=== PATIENT | female | born 1990 | race Caucasian/White ===

== ENCOUNTER 2021-02-15 15:56 | Emergency (ER) | payer OTHER, SELFPAY ==
[2021-02-15 16:05] VITALS: BP 134/92; PULSE 84; RESP 16; TEMP 36.8; O2SAT 100
--- NOTE | 2021-02-15 19:13 | ED.HA ---
HPI - Headache General Chief Complaint: Headache Stated Complaint: migraine Time Seen by Provider: 02/15/21 18:54 Source: patient, family and RN notes reviewed Limitations: no limitations History of Present Illness HPI Narrative: 30 years old white female, history of migraine headache, presents with left frontal throbbing headache started 5 days ago, not improving at home medication. Patient had similar symptom in the past and usually gets better when she come to the emergency room. Patient reports some nausea and light sensitivity. Patient denies any fever, chills, vomiting, vision change. Related Data Allergies Allergy/AdvReac Type Severity Reaction Status Date / Time amoxicillin [From Augmentin] Allergy Intermediate Rash Verified 02/15/21 19:35 clavulanic acid Allergy Intermediate Rash Verified 02/15/21 19:35 [From Augmentin] Review of Systems Review of Systems: CONSTITUTIONAL: Denies fever, chills, or sweats. EYES: Denies visual changes, redness, or discharge. ENT: Denies rhinorrhea, congestion, sore throat, or otalgia. CARDIOVASCULAR: Denies chest pain, palpitations, or edema. RESPIRATORY: Denies cough or dyspnea. GASTROINTESTINAL: Denies abdominal pain, nausea, vomiting, or diarrhea. GENITOURINARY: Denies dysuria or hematuria. SKIN: Denies rash or itching. MUSCULOSKELETAL: Denies back pain, joint pain, or myalgia. NEUROLOGIC: Denies headache, numbness, or weakness. PSYCHIATRIC: Denies anxiety or depression. PMFSH Past Medical History Medical History Anxiety Back pain Bronchitis GERD (gastroesophageal reflux disease) GI bleed IBS (irritable bowel syndrome) Migraine Surgical History Surgical History Hx of tonsillectomy Social History Social History Smoking status: Never smoker Exam Narrative: General appearance: Well-developed, well-nourished, in pain Skin: Normal color Head: Normocephalic, nontraumatic Eyes: Clear conjunctiva ENT: Oropharynx normal, ears normal, nose normal Neck: Supple, nontender Chest and respiratory: Airway patent, no respiratory distress, no accessory muscle use Heart: Regular rate/rhythm Abdomen: Soft, nontender, no organomegaly, quiet bowel sounds Vascular: Normal peripheral pulses, normal capillary refill. 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 IV fluids, IV Toradol, IV Reglan and Benadryl ordered. Differential Diagnosis Differential diagnosis: Likely migraine Critical Care Time Critical Care Time Critical Care Time: Yes Total Critical Care Time: 30 Discharge Plan Discharge Clinical Impression: Migraine Qualifiers: Migraine type: unspecified Status migrainosus presence: without status migrainosus Intractability: not intractable Qualified Code(s): G43.909 - Migraine, unspecified, not intractable, without status migrainosus Patient Disposition: Home, Self-Care
[2021-02-15] MEDS: SODIUM CHLORIDE 0.9% IV 1,000 ML 999 ML IV CONT (19:45)
[2021-02-15] MEDS: METOCLOPRAMIDE HCL INJ 10 MG/2 ML VIAL IV PUSH (19:46)
[2021-02-15] MEDS: diphenhydrAMINE HCl INJ 50 MG/ML VIAL IV PUSH (19:46)
[2021-02-15] MEDS: KETOROLAC 30 MG/ML VIAL (*BKC) IV PUSH (19:46)
[2021-02-15] MEDS: LORazepam INJ (*CRX) 2 MG/ML VIAL 1 MG IV PUSH (21:07)
[2021-02-15 22:25] VITALS: BP 115/86; PULSE 86; RESP 16; O2SAT 97
== END 2021-02-15 22:25 | disposition home or self-care (01) ==
PROVIDERS: Emergency Provider Emergency Medicine; PCP Family Medicine
DX: G43.909 Migraine, unspecified, not intractable, without status migrainosus (principal); K21.9 Gastro-esophageal reflux disease without esophagitis; K58.9 Irritable bowel syndrome, unspecified
CPT/HCPCS: 96361; 96374; 96375; 99284; J1200; J1885; J2060; J2765; J7030

== ENCOUNTER → 2021-03-14 15:13 | Outpatient (CLI) | payer OTHER, SELFPAY ==
--- NOTE | ~2021-03-14 | MR_ITS ---
EXAMINATION: MR brain/brain stem wo con DATE: 03/14/2021 15:45 INDICATION: Headache. TECHNIQUE: Magnetic resonance imaging (MRI) of the brain and brainstem was performed without intraven ous contrast. Sequences included sagittal and axial T1-weighted FSE, axial diffusion-weighted FS EPI, axial T2*-weighted GRE, axial T2-weighted FLAIR Propeller, and axial T2-weighted Propeller. Apparent diffusion coefficient (ADC) maps were created. COMPARISON: Head CT 04/26/2019 FINDINGS: There is no intracranial hemorrhage, acute infarction, or abnormal intracranial mass lesion . The ventricles are normal in size. There is mild mucosal thickening in the ethmoid sinuses. The orb its are normal. The mastoid air cells are normal. IMPRESSION: 1. Normal brain. Reviewed, dictated and finalized at location A. IMPRESSION: 1. Normal brain.
== END ==
PROVIDERS: Visit Provider Chiropractor
DX: R51.9 Headache, unspecified (principal)
CPT/HCPCS: 70551

== ENCOUNTER 2022-03-05 08:09 | Outpatient (CLI) | payer BC, SELFPAY ==
--- NOTE | ~2022-03-05 | XR_ITS ---
EXAM: XR hand LT 2V, XR hand RT 2V DATE: 03/05/2022 08:44 HISTORY: Elevated rheumatoid factor . COMPARISON: None available. FINDINGS: Normal mineralization. No fracture or dislocation. No lytic or blastic lesion. Joint space s are maintained. No erosion or periosteal change. Soft tissues within normal limits. IMPRESSION: Normal bilateral hand radiograph findings. Reviewed, dictated and finalized at location K. IMPRESSION: Normal bilateral hand radiograph findings.
--- NOTE | ~2022-03-05 | XR_ITS ---
EXAM: XR foot LT min 3V, XR foot RT min 3V DATE: 03/05/2022 08:44 HISTORY: Elevated rheumatoid factor . COMPARISON: Left foot x-ray 03/07/2007. FINDINGS: Normal mineralization. No fracture or dislocation. No lytic or blastic lesion. Joint space s are maintained. Bilateral Achilles and plantar enthesopathy. No erosion or periosteal change. Soft tissues within normal limits. IMPRESSION: Bilateral Achilles and plantar enthesopathy, otherwise normal bilateral foot radiograph f indings. Reviewed, dictated and finalized at location K. IMPRESSION: Bilateral Achilles and plantar enthesopathy, otherwise normal bilat eral foot radiograph findings.
--- NOTE | ~2022-03-05 | XR_ITS ---
EXAM: XR sacroiliac joints min 3V DATE: 03/05/2022 08:44 HISTORY: Elevated rheumatoid factor . COMPARISON: None available. FINDINGS: Normal mineralization. No fracture or dislocation. No lytic or blastic lesion. Degenerativ e change of the pubic symphysis. The remaining joint spaces are maintained. No erosion or periosteal change. Soft tissues within normal limits. IMPRESSION: The SI joints are radiographically normal. Possible osteitis pubis. Reviewed, dictated and finalized at location K.
== END 2022-03-05 08:10 | disposition home or self-care (01) ==
PROVIDERS: PCP Physician Assistant Medical; Visit Provider Physician Assistant
DX: R76.8 Other specified abnormal immunological findings in serum (principal); M25.50 Pain in unspecified joint; M77.8 Other enthesopathies, not elsewhere classified
CPT/HCPCS: 72202; 73120; 73630

== ENCOUNTER 2024-10-26 17:35 | Emergency (ER) | payer BC, SELFPAY ==
--- OUTSIDE RECORDS SUMMARY | 2024-10-26 17:36 | XMS_ITS | Data Portability ---
Author Organization [facility], [id number] Address [address] [place] [address] Assessment No assessment recorded. Plan of Treatment Reminders Order Date Submit Date Provider Last Modified By Organization Details Last Modified Time Details Appointments ANNUAL- EST 15 2024 07:30A M JIMMY ESPINOZA WHNP Not available Not available Not available Lab wet mount panel, vaginal fluid 2024 025 bgelly [id number] [address], [facility] [address], [place], [address], 07/18/2024 12:02:38 rusty wet prep 2024 025 bgelly [id number] [address], [address], [place], [address], 07/18/2024 12:02:38 Referral None recorded . Procedures None recorded . Surgeries None recorded . Imaging None recorded . Medication Orders None recorded . Patient TargetsNo targets recorded. Patient Instructions Encounter Date Encounter Id Patient Instructions Last Modified By Organization Details Last Modified Time 07/18/2024 [id number] she'll try boric acid capsules on [employer], to be more proactive. exam and wet mt NL today, and no symptoms now. [email or web address] Not available 07/18/2024 11:52:22 Reason for Referral None Reported. Results Created Date Observation Date Name Description Value Unit Range Abnormal Flag Note LastModifiedBy Organization Detail LastModifiedTime 07/18/19 25 07/18/2024 rusty wet prep Hyphae Absent Not Available [id number], [place], [address], 07/18/2024 12:01:30 07/18/1907/18/2024 wet mount panel , vagin al fluid Unknown Analyte <20% Not Available [address], [place], [address], 07/18/2024 12:01:28 07/18/1907/18/2024 wet mount panel , vagin al fluid Unknown Analyte Negati ve Not Available [id number], [place], [address], 07/18/2024 12:01:28 07/18/1907/18/2024 wet mount panel , vagin al fluid Unknown Analyte Negati ve Not Available [id number], [place], [address], 07/18/2024 12:01:28 07/18/1907/18/2024 wet mount panel , vagin al fluid Unknown Analyte Rare Not Available [address], [place], [address], 07/18/2024 12:01:28 Result Notes None recorded. Problems Name Problem SNOMED Code Status Onset Date Resolution Date Notes Provider Name and Address Organization Details Recorded Time Anxiety 82238650 Active 2024 Jody Sheridan null, [place] - [facility] 5 09:31:40 Osteoarth ritis 987347455 Active 2024 Jody Sher[place] [facility] 5 09:32:09 History of endometri osis 37661317606 718723 Active 2024 Jody Sher[place] [facility] 5 09:32:40 Migraine 52068700 Active 2024 Jody Sher[place] [facility] 5 09:32:49 Vaginal discharge 217442805 Active 2024 WILNER GAN MD [address], [place], [address] , [place] - [facility] 5 11:45:15 Pruritus of vulva 32663696 Active 2024 WILNER GAN MD [address], [place], [address] , [place] - [facility] 5 11:45:21 Endometri osis (clinical ) 137072202 Active Endometri osis, Problem Code: 617.9; Problem Code Type: ICD-9; Not Available [facility] 5 12:54:02 Anxiety state 656490799 Active Anxiety Disorder, Generaliz ed, - [employer] 2 Problem Code: 300.00; Problem Code Type: ICD-9; Not Available [facility] 5 12:54:02 Generaliz ed osteoarth ritis 345601616 Active Arthritis , Osteoarth ritis, - [employer] 2 Problem Code: 715.00; Problem Code Type: ICD-9; Not Available [facility] 5 12:54:02 Problem Notes None recorded. Procedures Surgical History Date Name Laterality Status Provider Name and Address Organization Details Recorded Time 02/23/20 24 Date of Last Pap Smear completed Jody Sheridan [place] [facility] 07/18/2024 11:28:55 09/17/19 19 Date of Last Colonoscopy completed Jody Sheridan [place] [facility] 07/18/2024 11:28:55 08/02/19 19 Date of Last Mammogram completed Jody Smithper [place] [facility] 07/18/2024 08:28:53 10/20/19 12 endoscopy completed Jody [place] [facility] 07/18/2024 09:04:34 05/21/19 12 colposcopy [place] J[place] [facility] 07/18/2024 09:04:18 05/21/19 07 Tonsillectomy [place] [facility] 07/18/2024 09:05:15 Appendectomy [place] [facility] 07/18/2024 09:03:42 Colonoscopy [place] [facility] 07/18/2024 09:04:00 Laparoscopy [place] [facility] 07/18/2024 09:05:51 extraction of wisdom tooth completed Jody Sheridan [place] [facility] 07/18/2024 09:05:24 tonsillectomy completed Not Available [facility] 09/18/2024 15:55:05 colposcopy completed Not Available [facility] 09/18/2024 15:55:05 endoscopy completed Not Available [place] [address] 09/18/2024 15:55:05 laparoscopy completed Not Available [facility] 09/18/2024 15:55:06 colonoscopy completed Not Available [facility] 09/18/2024 15:55:06 Imaging Results None recorded. Procedure Notes None recorded. Medical Equipment None Reported. Allergies Allergen ID Allergen Name Allergen Category Reaction Reaction Severity Criticality Documentation Date Start Date Code Code System Note Provider Name and Address Organization Details Recorded Time 535656 peanut allergeni c extract food,medi cation Not available Not available Not available 07/18/2024 36285 8 RxNorm Jody Sheridan null, [place] [facility] 5 11:28:03 233260 metronida zole medicatio n itching Not available Not available 07/18/2024 6922 RxNorm Jody [place], [place] [facility] 5 11:28:03 572752 latex environme nt,medica tion Not available Not available Not available 07/18/2024 59311 91 RxNorm Jody Sheridan null, [place] [facility] 5 11:28:03 031249 cat dander environme nt Not available Not available Not available 07/18/2024 70733 UNK Jody Sheridan null, [place] - [facility] 5 11:28:03 642043 mold extract environme nt Not available Not available Not available 07/18/2024 24523 8 RxNorm Jody Sheridan null, [facility] 5 11:28:03 797612 Flagyl medicatio n itching Not available Not available 07/18/202463148 6 RxNorm Jody Sheridan null, [place] - [facility] 5 11:31:00 754191 Levaquin medicatio n hives Not available Not available 09/18/2024 32240 2 RxNorm Not Available [facility] 5 13:17:30 088476 Augmentin medicatio n hives Not available Not available 09/18/2024 35741 2 RxNorm NOTE: Not Available [facility] 5 13:17:31 Medications Name Sig Start Date Stop Date Status Note LastModified by Organization Details LastModified Time cyclobenzap rine 10 mg tablet TAKE 1 TABLET BY MOUTH 3 TIMES A DAY NEEDED active Not Available Not Available No t Available prednisone 10 mg tablet PLEASE SEE ATTACHED FOR DETAILED DIRECTION S 07/18 completed Not Available Not Available Not Available ofloxacin 0.3 % eye drops INSTILL 1 DROP 4 TIMES A DAY INTO AFFECTED EYE FOR 10 DAYS 07/18 completed Not Available Not Available Not Available fluconazole 150 mg tablet TAKE 1 TABLET BY MOUTH EVERY 3 DAYS FOR 3 DOSES THEN 1 TABLET BY MOUTH WEEKLY FOR 6 MONTHS 07/18 completed Not Available Not Available Not Available sumatriptan 100 mg tablet TAKE ONE TABLET BY MOUTH AT ONSET OF MIGRAINE. MAY REPEAT ONE TIME AFTER 2 HOURS IF NEEDED active Not Available Not Available No t Available hydrocodone 5 mg-acetamin ophen 325 mg tablet TAKE 1 TABLET BY MOUTH EVERY 6 (SIX) HOURS NEEDED. INDICATIO NS: ACUTE PAIN < 7 DAY SUPPLY 07/18 completed Not Available Not Available Not Available Zyrtec 10 mg tablet Take 1 tablet every day by oral route. active Not Available Not Available No t Available alprazolam 0.25 mg tablet TAKE 1 TABLET BY MOUTH THREE TIMES DAILY NEEDED FOR ANXIETY active Not Available Not Available No t Available tamsulosin 0.4 mg capsule TAKE 1 CAPSULE BY MOUTH EVERY DAY 07/18 completed Not Available Not Available Not Available erythromyci n 5 mg/gram (0.5 %) eye ointment ADMINISTE R 1 DROP INTO LEFT EYE 4 TIMES DAILY FOR 7 DAYS. 07/18 completed Not Available Not Available Not Available frovatripta n 2.5 mg tablet PLEASE SEE ATTACHED FOR DETAILED DIRECTION S active Not Available Not Available No t Available propranolol ER 80 mg capsule,24 hr,extended release TAKE 1 CAPSULE BY MOUTH EVERY DAY active Not Available Not Available No t Available clindamycin 2 % vaginal cream INSERT 1 APPLICATO RFUL VAGINALLY EVERY NIGHT BEFORE BEDTIME FOR 5 DAYS 07/18 completed Not Available Not Available Not Available propranolol 20 mg tablet 07/18 completed Not Available Not Available Not Available ondansetron 4 mg disintegrat ing tablet TAKE 1 TABLET BY MOUTH EVERY 8 HOURS NEEDED FOR NAUSEA 07/18 completed Not Available Not Available Not Available progesteron e micronized 100 mg capsule TAKE 1 CAPSULE BY MOUTH EVERY NIGHT 07/18 completed Not Available Not Available Not Available vitamin B12 0.5 mg-folic acid 1 mg tablet Take 1 tablet every day by oral route. active Not Available Not Available No t Available Vitamin D3 125 mcg (5,000 unit) tablet Take 1 tablet every day by oral route. active Not Available Not Available No t Available Probiotic active Not Available Not Sonya ilable Not Available Aimovig Autoinjecto r 140 mg/mL subcutaneou s auto-inject or INJECT 1 ML (140 MG) BY SUBCUTANE OUS INJECTION EVERY 30 DAYS. active Not Available Not Available No t Available Ubrelvy 100 mg tablet PLEASE SEE ATTACHED FOR DETAILED DIRECTION S active Not Available Not Available No t Available magnesium 100 mg (as glycinate) capsule Take 1 capsule every day by oral route. active Not Available Not Available No t Available [employer] Katja (migraine) USE ONE 45 MINUTE TREATMENT EVERY OTHER DAY FOR PREVENTIO N OR AT ONSET OF MIGRAINE active Not Available Not Available No t Available riboflavin (vitamin B2) 100 mg capsule Take 1 capsule every day by oral route. active Not Available Not Available No t Available Vitals Date Recorded Body height Body height Body mass index (BMI) Body weight Systolic blood pressure Diastolic blood pressure Provider Name and Address Organization Details Last Updated DateTime 153.04 cm 153.04 cm 29.6 kg/m2 50595.6 3 g 116 mm[Hg] 72 mm[Hg] Jody Sheridan [facility] 11:29:18 Social History Question Answer Notes LastModified by Organ[employer]at [employer] Details LastModified Time Tobacco Smoking Status Never Smoker Jody Sheridan [facility] 07/18/2024 11:29:03 Do You Have An Advance Directive? No [email or web address] Information not available 07/18/2024 If You Are , What Was Your Level Of Alcohol Consumption Prior To ? None [email or web address] Information not available 07/18/2024 What Is Your Level Of Caffeine Consumption? Occasional [email or web address] Information not available 07/18/2024 What Type Of Diet Are You Following? REGULAR [email or web address] Information not available 07/18/2024 How Many Times Per Week Do You Exercise? Less Than 1 Time Per Week SocialHist [email or web address] n: 'Active But No Formal Exercise'; [email or web address] Information not available 09/18/2024 What Is Your Relationship Status? [email or web address] Information not available 07/18/2024 Sex: Unknown Functional Status Question Answer Note LastModified by [employer] Details LastModified Time Do you use any illicit or recreational drugs? No [email or web address] Information not available 07/18/2024 What is your level of alcohol consumption? None [email or web address] Information not available 07/18/2024 Are you currently employed? 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 [email or web address] Information not available 07/18/2024 Mental Status None recorded. Family History Relationship Description Onset Age of this Age Resolved Age Notes LastModified by Organization Details LastModified Time Sister Family history of malignant neoplasm of thyroid [email or web address] Not available 2024 11:28:52 Sister Hypothyroidi sm Not available 2024 11:28:52 Paternal Grandfather Family history of malignant neoplasm of lung Not available 2024 11:28:52 Paternal Grandfather Heart disease [email or web address] Not available 2024 11:28:52 Mother Family history of breast cancer [email or web address] Not available 2024 11:28:52 Mother Kidney stone [email or web address] Not avai lable 07/18/2024 11:28:52 Mother Malignant tumor of breast [email or web address] Not available 2024 11:28:52 Father Heart disease [email or web address] Not available 2024 11:28:52 Father Hypertensive disorder [email or web address] Not available 2024 11:28:52 Father Kidney stone [email or web address] Not avai lable 07/18/2024 11:28:52 Father Malignant neoplastic disease Cancer sister - thyroi d PGF-rivka ng Mom- breast Not available 09/18/2024 17:10:48 Mother Malignant neoplastic disease Cancer sister - thyroi d PGF-rivka ng Mom- breast Not available 09/18/2024 17:10:48 Mother Hypertensive disorder High Blood Pressu re Not available 09/18/2024 17:10:49 Mother Heart disease Heart Diseas e Dad- AFIB Not available 09/18/2024 17:10:49 Paternal Grandfather Malignant neoplastic disease Cancer sister - thyroi d PGF-rivka ng Mom- breast Not available 09/18/2024 17:10:49 Paternal Grandfather Hypertensive disorder High Blood Pressu re Not available 09/18/2024 17:10:49 Sister Malignant neoplastic disease Cancer sister - thyroi d PGF-rivka ng Mom- breast Not available 09/18/2024 17:10:49 Sister Hypertensive disorder High Blood Pressu re Not available 09/18/2024 17:10:49 Sister Heart disease Heart Diseas e Dad- AFIB Not available 09/18/2024 17:10:49 Paternal Grandmother Hypertensive disorder High Blood Pressu re Not available 09/18/2024 17:10:49 Paternal Grandmother Heart disease Heart Diseas e Dad- AFIB Not available 09/18/2024 17:10:49 Medical History Condition Response Psych- Anxiety Disorder Y ID-Other Y Ortho- Arthritis Y Cancer- Genetic screening Neurology- Headaches/Migraines Y Gynecological History Statement/Question Response History of Fibroids N Flow Heavy Date of Last Mammogram 08/01/2018 Date of LMP 06/22/2024 Current Control Method: Condoms Cologuard Testing N History of Recurrent Ovarian Cysts N Age at first intercourse 22 HPV Vaccine Completed Date of Last Colonoscopy 09/16/2018 Date of Last HPV Test 03/03/2024 Date of Last Cholesterol Screening 08/19 8 History of PCOS N History of Infertility Y History of Cervical Dysplasia N History of Vulvar Dysplasia N Duration of Flow (days) 3-7 Current Control Method Age at Menarche 12 History of Endometriosis Y Frequency of Cycle (Q days) 32 Sexually Active? Y History of Abnormal PAP Y History of Dysmenorrhea Y Menses Monthly Y Date of Last Pap Smear 02/23/2024 Sexual Problems? Y History of Sexually Transmitted Infectio n N Obstetrics History GPAL:G 0 P 0 0 0 0 Past Encounters Encounter ID Performer Location Encounter Start Date Encounter Closed Date Diagnosis/Indication Diagnosis SNOMED-CT Code Diagnosis ICD10 Code Diagnosis Note [id number] WILNER GAN MD [id number] [facility] [address] [facility] [place] [address] 07/18/2024 11:22:39 07/18/2024 11:54:23 Vaginal discharge 401016393 N89.8 Pruritus of vulva 672455 00 L29.2 Health Concerns Section Related Observation LastModified by Organization Detai ls LastModified Time None Recorded Concern Status LastModified by Organization Details LastModified Time None Recorded Advance Directives Directive N: Payers Insurance Date Sequence Insurance Name Policy Number Policy Quiñones Covered Member ID Quiñones Member ID Guarantor Name 07/24/2024 1 [place] [id number] Zeenat Arnold [id number] Zeenat Arnold Notes Date Note Type Note Provider Name and Address Organization Details Recorded Time 07/18/2024 text/html frequent BV or yeast per pt, after beach visit in may used azo yeast oral, helped, then recurrence. recent urgent telehealth visit 5 nights vag clinda, helped, recurrence. 2 nights ago a pimple on R popped, now gone, and no itch or discharge today. declines STI screen, no new partners. monthly periods. has annual scheduled mar 09 WILNER GAN MD [address], [place], [address], [facility] 07/18/2024 12:03:14 OBGyn Episode No OBEpisode recorded.
--- OUTSIDE RECORDS SUMMARY | 2024-10-26 17:36 | XMS_ITS ---
Author Name YENIFER BAIG, PhD, DR. INGRID Lynch Address [address] [place], [place] [address] Phone [phone] Organization [facility] Care Team Providers Care Warp Picker Name Role Phone [address] Unavailable [phone] Reason for Referral Not Available Allergies, adverse reactions, alerts No known allergies Problem List No known problems Social History Sex Female Functional Status No Information Mental Status No Information Assessments Not Available Plan of Care Not Available
--- OUTSIDE RECORDS SUMMARY | 2024-10-26 17:36 | XMS_ITS | Clinical Summary ---
Author Organization [facility] Address [address] [place] [address] Care Team Providers Care Chemical Librarian Name Role Phone Analisa Pleitez Primary Care Provider [phone] Peter Guerrier MD Unavailable [phone] Allergies Active Allergy Reactions Criticality Noted Date Comments Amoxicillin-Pot Clavulanate Hives,Rash,Urticaria Medium 03/04/2016 Levofloxacin Vomiting,Stomach upset,Nausea And Vomiting Medium 09/06/2021 Metronidazole Diarrhea,Other (See comments),Fever,Stomach upset,Nausea And Vomiting,Rash,Vomiting Medium 05/07/2019 Medications cholecalciferol (VITAMIN D-3) 5,000 unit capsule 1 Active cetirizine (ZyrTEC) 10 mg capsule 3 Active ALPRAZolam (XANAX) 0.25 mg tablet Take 0.25 mg by mouth 3 (three) times a day as needed 2 Active cyclobenzaprine (FLEXERIL) 10 mg tablet Take 10 mg by mouth 3 (three) times a day as needed Active topiramate (TOPAMAX) 100 mg tablet Take 1 tablet (100 mg total) by mouth 2 (two) times a day 60 tablet 11 2 Active frovatriptan (FROVA) 2.5 mg tabletIndicatio ns:Migraine Take 1 tablet (2.5 mg total) by mouth once as needed for headaches for up to 1 dose May repeat one time after 2 hours if needed. 9 tablet 5 2 Active SUMAtriptan (IMITREX) 100 mg tabletIndicatio ns:Migraine Take 1 tablet (100 mg total) by mouth once as needed for migraine (headache) for up to 1 dose May repeat one time after 2 hours if needed. 9 tablet 11 2 Active predniSONE (DELTASONE) 10 mg tablet Take 6 tabs (60mg) daily for 2 days, then take 5 tabs (50mg) daily for 2 days. Continue to decrease by 1 tab (10mg) every 2 days until gone. 42 tablet 2 Active erenumab-aooe 140 mg/mL auto-injector Inject 140 mg under the skin every 30 (thirty) days 1 mL 2 3 Active Active Problems Problem Noted Date Diagnosed Date Elevated rheumatoid factor 02/27/2022 Overview (03/10/2022): Labs 02/27/22: RF <14, CCP <16, 14.3.3 eta <0.2, ESR 11, CRP 1.7mg/L XR 03/05/22: SI joints: normal SI joints. Possible osteitis pubis. B/l hands: normal B/l feet: bilateral achilles and plantar enthesopathy US left hand/wrist (03/09/22): Grade 1 power doppler in the radial/scaphoid joint. Mild synovial thickening in the 2nd PIP joint. Assessment & Plan (03/13/2022 9:48 AM CDT): 31-year-old female with PMHx of anxiety, migraines, and dry eyes c/o a low positive RF (16) and intermittent joint pain involving the wrists (L>R), knees, and toes that has progressed over the past few months. Recent CHRISTIANO with antibody cascade was negative and she denies any CTD symptoms. There is no obvious synovitis in the hands or feet. Recent rheumatological work up revealed a negative RF, CCP, and 14.3.3 eta along with normal ESR/CRP suggesting previous RF was a false positive. XR revealed normal findings of the bilateral hands, feet, and SI joints. US of the left hand/wrist did not reveal any significant inflammatory findings. Based on unremarkable hand US and negative serologies, there is no evidence at this time to suggest rheumatoid arthritis. She also does not have any generalized soft tissue tender points on exam to suggest fibromyalgia. Follow up as needed. Seen with Dr. Guerrier. Assessment & Plan (02/27/2022 10:35 AM CDT): 31-year-old female with PMHx of anxiety, migraines, and dry eyes c/o a low positive RF (16) and intermittent joint pain involving the wrists (L>R), knees, and toes that has progress over the past few months. Notes toes turn purple/blue but not white when cold and fingers are unaffected. Recent CHRISTIANO with antibody cascade was negative to suggest any secondary causes and she denies any other CTD symptoms. There is no obvious synovitis in the hands or feet but does have tenderness throughout the MTP joints bilaterally. Symptoms and exam are not overly suspicious for an active inflammatory arthritis; however, due to low positive RF, will order appropriate serologies, radiographs, and a left hand/wrist US to further evaluate. Follow up in 2 weeks. Sooner if needed. Seen with Dr. Guerrier. 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 Gender Identity Not on file Sexual Orientation Not on file Obstetrics History Last Filed Vital Signs Vital Sign Reading Time Taken Comments Blood Pressure 122/82 03/13/2022 8:52 AM CDT Pulse 79 03/13/2022 8:52 AM CDT Temperature - - Respiratory Rate - - Oxygen Saturation 98% 03/13/2022 8:52 AM CDT Inhaled Oxygen Concentration - - Weight 68.9 kg (152 lb) 03/13/2022 8:52 AM CDT Height 5 cm (1.97) 03/08/2022 4:01 PM CDT Body Mass Index 27464.8 03/08/2022 4:01 PM CDT Plan of Treatment Health Maintenance Due Date Last Done Comments Cervical Cancer Screening 1992 Depression Screening 1992 Hepatitis C Screening 1992 DTaP/Tdap/Td Vaccine (1 - Tdap) 2003 Varicella Vaccines (1 of 2 - 13+ 2-dose series) 2005 Hepatitis B Screening 2010 Regular Well Visit/Exam 18-64 2010 Covid-19 Vaccine (3 - 2023-2 5 season) 2024 09/09/2020, 08/19/2020 Influenza Vaccine (Season Ended) 2025 HPV Vaccines Aged Out No longer eligi ble based on patient's age to complete this topic Pneumococcal vaccine <65 Aged Out No longer eligible based on patient's age to complete this topic Insurance [place] Care Teams Chemical Librarian Relationship Specialty Start Date End Date Analisa Pleitez PA [address] [place], [place] [id number] PCP - General Family Practice 01/19/22 Peter Guerrier MD [address] [place] [address] Consulting Physician Rheumatology 01/19/22
--- OUTSIDE RECORDS SUMMARY | 2024-10-26 17:36 | XMS_ITS | Clinical Summary ---
Author Organization [facility] Address [address] [place] [address] Care Team Providers Care Block Machine Operator Name Role Phone Omkar Carmen MD Primary Care Provider [phone] Allergies Active Allergy Reactions Criticality Noted Date Comments Amoxicillin-Pot Clavulanate Hives,Rash High 03/04/2016 Latex Other (See Comments) High 03/19/2023 Pt reports that she feels like her throat is closing when she is around or being touched with latex Levofloxacin Other (See Comments),Nausea and Vomiting Medium 09/06/2021 Metronidazole Diarrhea,Hypertensio n,Fever,Nausea and Vomiting,Other (See Comments),Rash Medium 05/07/2019 Medications Cetirizine (ZyrTEC) 10 mg Capsule Take by mouth. Activ e ALPRAZolam (XANAX) 0.25 mg tablet Take 0.25 mg by mouth. 02/18/20 21 Active cholecalciferol, Vitamin D3, 125 mcg (5,000 unit) Capsule 05/27/19 21 Active cyclobenzaprine (FLEXERIL) 10 mg tablet Take 10 mg by mouth. Active [employer] Katja, migraine, Misc USE ONE 45 MINUTE TREATMENT EVERY OTHER DAY FOR PREVENTION OR AT ONSET OF MIGRAINE 08/08/19 24 Active Magnesium 200 mg Tablet Active SEMAGLUTIDE SUBCUT Active Aimovig Autoinjector 140 mg/mL Auto-Injector Inject 1 mL (140 mg) by subcutaneous injection every 30 days. 1 mL 11 04/03/20 24 Active propranoloL (Inderal LA) 80 mg Long Acting 24 hour capsule Take 1 Capsule (80 mg) by mouth daily. 30 Capsule 04/03/20 24 Active frovatriptan (FROVA) 2.5 mg Tablet Take 1 Tablet (2.5 mg) by mouth every 2 hours as needed for Migraine. may repeat in 2 hours; max dose 7.5mg in 24 hours 2 Tablet 04/03/20 Active SUMAtriptan (IMITREX) 100 mg tablet TAKE ONE TABLET BY MOUTH AT ONSET OF MIGRAINE. MAY REPEAT ONE TIME AFTER 2 HOURS IF NEEDED 9 Tablet 04/03/20 Active ubrogepant (Ubrelvy) 100 mg tablet Take one tablet by mouth at the onset of a migraine. If needed, a second dose may be taken at least 2 hours after the initial dose. The maximum dose in a 24-hour period is 200 mg 10 Tablet 11 04/03/20 Active predniSONE 10 mg Tablets, Dose Pack Take 1 Tablet (10 mg) by mouth see administration instructions. 42 Tablet 1 04/09/20 Active Active Problems Problem Noted Date Diagnosed Date Migraine without aura and wi thout status migrainosus, not intractable 09/14/2022 Encounters Date Type Department Care Team Description 09/12/2024 Refill [facility] [address] [place] [address] [place] [id number] Ramin Wilson MD 08/19/2024 External Device Data ST[facility] ABSTRACTION Provider, Abstract 07/26/2024 External Device Data ST[facility] ABSTRACTION Provider, Abstract from Last 3 Months Social History Tobacco Use Types Packs/Day Years Used Date Smoking Tobacco: Never Smokeless Tobacco: Never Alcohol Use Standard Drinks/Week Comments Not Currently 0 (1 standard drink = 0.6 oz pur e alcohol) Comments No Sex and Gender Information Value Date Recorded Sex Assigned at Not on file Legal Sex Female 2:55 PM CDT Gender Identity Not on file Sexual Orientation Not on file Last Filed Vital Signs Vital Sign Reading Time Taken Comments Blood Pressure 110/70 04/03/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 Pulse 74 04/03/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 Temperature - - Respiratory Rate 16 03/19/2023 2:50 PM CDT Oxygen Saturation 99% 04/03/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 Inhaled Oxygen Concentration - - Weight 72.4 kg (159 lb 9.6 oz) 04/03/2024 1:19 P M FORKLIFT WHEEL LOADER Height 152.4 cm (5') 04/03/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 Body Mass Index 31.17 04/03/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 Plan of Treatment Health Maintenance Due Date Last Done Comments DTAP/TDAP/TD VACCINES (1 - Tdap) 2011 HEPATITIS B VACCINES (1 of 3 - 19+ 3-dose series) 2011 HPV/Cotest (21-29) 2013 CERVICAL CANCER SCREENING 2022 HPV/Cotest (30-65) 2022 PAP SMEAR 2022 INFLUENZA VACCINE (#1) 2023 HPV VACCINES Aged Out No longer eligi ble based on patient's age to complete this topic Insurance [facility] Ushi ACCESS CHOICE Care Teams Block Machine Operator Relationship Specialty Start Date End Date Omkar Carmen MD [address] [place] [id number] PCP - General Family Practice 09/11/22
--- OUTSIDE RECORDS SUMMARY | 2024-10-26 17:36 | XMS_ITS | Referral Summary ---
Author Organization [facility] Address [address] [place] [address] Care Team Providers Care Repeater Operator Name Role Phone Analisa Pleitez Primary Care Provider Peter Guerrier MD Unavailable [phone] Allergies Active Allergy Reactions Criticality Noted Date [...] Sooner if needed. Seen with Dr. Guerrier. 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
--- OUTSIDE RECORDS SUMMARY | 2024-10-26 17:36 | XMS_ITS | Encounter Summary ---
Author Organization [facility] Address [address] [place] [address] Care Team Providers Care Infrastructure Software Engineer Name Role Phone Reba Allen MA Primary Care Provider [facility] Herson Caal MD Primary Care Provider Encounter Details Date Type Department Care Team (Late st Contact Info) Description 08/21/2018 [facility] Outpatient Visit [facility] [address] [place] [address] Rosy Patino MD [address] [address] Social History Tobacco Use Types Packs/Day Years Used Date Smoking Tobacco: Never Smokeless Tobacco: Never Alcohol Use Standard Drinks/Week Comments No 0 (1 standard drink = 0.6 oz pur e alcohol) Comments No Sex and Gender Information Value Date Recorded Sex Assigned at Not on file Legal Sex Female 5:56 AM CDT Gender Identity Not on file Sexual Orientation Not on file documented as of this encounter Plan of Treatment Not on file documented as of this encounter Visit Diagnoses Not on filedocumented in this encounter Care Teams Infrastructure Software Engineer Relationship Specialty Start Date End Date Reba Allen MA PCP - General 05/03/16 11/22/20 [place] [address] [place] [address] PCP - General 11/23/20 documented as of this encounter
--- OUTSIDE RECORDS SUMMARY | 2024-10-26 17:36 | XMS_ITS | Clinical Summary ---
Author Organization [facility] Address [address] [place] [address] Care Team Providers Care Rod Filler Name Role Phone Herson Gupta MD Primary Care Provider Source Comments [facility],non-owned Affiliates and Associated Physician Practices is amultiple site organization consisting of ambulatory clinics and hospital sitesin [place], [place], [place] and [place]. This disclosure is being madepursuant to the Care Everywhere program and may not contain all information available regarding this patient. Last updated 18.[facility] Allergies Active Allergy Reactions Criticality Noted Date Comments Augmentin Urticaria Medium 01/30/2018 Amoxicillin-Pot Clavulanate Rash Medium 03/04/20 16 Levofloxacin Elevated Blood Pressure,GI Discomfort,Nausea and/or Vomiting,Vomiting Medium Metronidazole Diarrhea,Elevated Bl ood Pressure,Fever,GI Discomfort,Nausea and/or Vomiting,Vomiting Medium Medications * Be aware that medications may not be up to date on this document. Alwaysverify current medications with the patient. Cetirizine HCl (ZYRTEC PO) Active Vit-Fe Fumarate-FA ( VITAMINS PO) Take 1 tablet by mouth once daily 05/15/2020 Active vitamin D3 (CHOLECALCIFEROL ) 125 MCG (5000 UT) capsule Take 5,000 Units by mouth once daily 05/27/2020 Active Active Problems Problem Noted Date Diagnosed Date S/P laparoscopic procedure 10/07/2018 Endometriosis of rectum 10/07/2018 Encounter for screening for malignant neoplasm o f colon 09/16/2018 Chronic pelvic pain in female 01/30/2018 Dysmenorrhea 01/30/2018 Dyspareunia in female 01/30/2018 Dysuria 01/30/2018 Hx of endometriosis 01/30/2018 Obesity (BMI 30-39.9) 01/30/2018 Menorrhagia with regular cycle 01/30/2018 Family History Medical History Relation Name Comments Hypertension Father Negative Family History Mother Heart Disease Paternal Grandfather Cancer Paternal Grandmother lung Thyroid Disease Sister 1 cancer Cancer Sister 2 thyroid Relation Name Status Comments Father Alive Mother Alive Paternal Grandfather Paternal Grandmother Sister 1 Alive Sister 2 Social History Tobacco Use Types Packs/Day Years [...] Sign Reading Time Taken Comments Blood Pressure 122/64 11/26/2020 11:37 AM CDT Pulse 96 10/10/2018 12:04 PM CDT Temperature 37 C (98.6 F) 10/10/2018 12:04 PM CDT Respiratory Rate 16 10/10/2018 12:04 PM CDT Oxygen Saturation 98% 10/10/2018 12:04 PM CDT Inhaled Oxygen Concentration - - Weight 73.9 kg (163 lb) 11/26/2020 11:37 AM CDT Height 152.4 cm (5') 11/26/2020 11:37 AM CDT Body Mass Index 31.83 11/26/2020 11:37 AM CDT Plan of Treatment Health Maintenance Due Date Last Done Comments HIV SCREENING 2007 HEPATITIS C SCREENING 06/07/2010 DTAP/TDAP/TD VACCINES (1 - Tdap) 2011 HEPATITIS B VACCINE (1 of 3 - 19+ 3-dose series) 2011 COVID-19 VACCINE (2023-2 5 season) 2024 DEPRESSION SCREENING 05/21/2024 INFLUENZA VACCINE (Season Ended) 2025 ZOSTER VACCINE (1 of 2) 2042 HIB VACCINE Aged Out No longer eligi ble based on patient's age to complete this topic HPV VACCINE Aged Out No longer eligi ble based on patient's age to complete this topic MENINGOCOCCAL (Group B) VACC INE SHARED DECISION-MAKING Aged Out No longer eligibl e based on patient's age to complete this topic MENINGOCOCCAL GROUPS A/C/Y/W VACCINE Aged Out No longer eligible b ased on patient's age to complete this topic PNEUMOCOCCAL VACCINE Aged Out No long er eligible based on patient's age to complete this topic Insurance ANTHEM ANTHEM Member Subscriber Plan / Payer (Ef fective 2014-Present) Name:Susana Arnold Relation to Subscriber:Child Name:ERIC CHEUNG Subscriber ID:Not on file Date of :1954 Payer ID:[id number] (NAIC) Group ID:[id number] Type:PPO Address: [address] Member Subscriber Plan / Payer (Ef fective 2018-Present) Name:Susana Arnold Relation to Subscriber:Self Name:Susana Arnold Jr Payer ID:[id number] (NAIC) Type:O Address: [place] [id number] [place] [id number] [facility] Member Subscriber Plan / Payer (Ef fective 2018-Present) Name:Susana Arnold Jr Relation to Subscriber:Self Name:SUSANA ARNOLD Payer ID:[id number] (NAIC) Type:O Address: [address] [facility] Member Subscriber Plan / Payer (Ef fective 2018-Present) Name:Susana Arnold Relation to Subscriber:Self Name:SUSANA ARNOLD Payer ID:[id number] (NAIC) Type:[employer] Address: [address] CARE Member Subscriber Plan / Payer (Ef fective 2018-Present) Name:Susana Arnold Jr Relation to Subscriber:Self Name:SUSANA ARNOLD Payer ID:[id number] (NAIC) Type:[employer] Address: [address] CARE Member Subscriber Plan / Payer (Ef fective 2018-Present) Name:Susana Arnold Jr Relation to Subscriber:Self Name:SUSANA ARNOLD Payer ID:[id number] (NAIC) Type:[employer] Address: [address] [facility] Member Subscriber Plan / Payer (Ef fective 2018-Present) Name:Clayton Susana Jr Relation to Subscriber:Self Name:SUSANA ARNOLD Jr Payer ID:[id number] (NAIC) Type:[employer] Address: [address] [facility] Member Subscriber Plan / Payer (Ef fective 2018-Present) Name:Susana Arnold Jr Relation to Subscriber:Self Name:SUSANA ARNOLD Payer ID:[id number] (NAIC) Type:[employer] Address: [address] [facility] Member Subscriber Plan / Payer (Ef fective 2018-Present) Name:Susana Arnold Jr Relation to Subscriber:Self Name:SUSANA ARNOLD Jr Payer ID:[id number] (NAIC) Type:[employer] Address: [address] CARE Member Subscriber Plan / Payer (Ef fective 2018-Present) Name:Susana Arnold Jr Relation to Subscriber:Self Name:SUSANA ARNOLD Payer ID:[id number] (NAIC) Type:[employer] Address: [address] CARE Member Subscriber Plan / Payer (Ef fective 2018-Present) Name:Susana Arnold Relation to Subscriber:Self Name:SUSANA ARNOLD Jr Payer ID:[id number] (NAIC) Type:[employer] Address: [address] [facility] Member Subscriber Plan / Payer (Ef fective 2018-Present) Name:Susana Arnold Relation to Subscriber:Self Name:SUSANA ARNOLD Payer ID:[id number] (NAIC) Type:O Address: [address] [facility] Member Subscriber Plan / Payer (Ef fective 2018-Present) Name:Susana Arnold Relation to Subscriber:Self Name:SUSANA ARNOLD Payer ID:[id number] (NAIC) Type:[employer] Address: [address] C[facility] Member Subscriber Plan / Payer (Ef fective 2018-Present) Name:Susana Arnold Relation to Subscriber:Self Name:SUSANA ARNOLD Payer ID:[id number] (NAIC) Type:[employer] Address: [address] CARE Member Subscriber Plan / Payer ( fective 2018-) Name:Susana Arnold Relation to Subscriber:Self Name:SUSANA ARNOLD Payer ID:[id number] (NAIC) Type:HMO Address: [address] CARE Member Subscriber Plan / Payer (Ef fective 2018-Present) Name:Susana Arnold Relation to Subscriber:Self Name:SUSANA ARNOLD Payer ID:[id number] (NAIC) Type:HMO Address: [address] [facility] Member Subscriber Plan / Payer (Ef fective 2018-Present) Name:Susana Arnold Relation to Subscriber:Self Name:SUSANA ARNOLD Payer ID:[id number] (NA) Type:[employer] Address: [address] [facility] Member Subscriber Plan / Payer (Ef fective 2018-Present) Name:Susana Arnold Jr Relation to Subscriber:Self Name:SUSANA ARNOLD Payer ID:[id number] ([facility]) Type:[employer] Address: [address] CARE Member Subscriber Plan / Payer (Ef fective 2018-Present) Name:Susana Arnold Jr Relation to Subscriber:Self Name:SUSANA ARNOLD Payer ID:[id number] (IC) Type:HMO Address: [address] [facility] Member Subscriber Plan / Payer (Ef fective 2018-Present) Name:ClaytonSusana Relation to Subscriber:Self Name:SUSANA ARNOLD Jr Payer ID:[id number] (NAIC) Type:HMO Address: [address] [facility] Member Subscriber Plan / Payer (Ef fective 2018-) Name:Susana Arnold Relation to Subscriber:Self Name:SUSANA ARNOLD Payer ID:[id number] (NAIC) Type:O Address: [address] [facility] Member Subscriber Plan / Payer ( fective 2018-Present) Name:Susana Arnold Relation to Subscriber:Self Name:SUSANA ARNOLD Payer ID:[id number] (NAIC) Type:[employer] Address: [address] C[facility] Member Subscriber Plan / Payer ( fective 2018-) Name:Susana Arnold Relation to Subscriber:Self Name:SUSANA ARNOLD Payer ID:[id number] (NAIC) Type:[employer] Address: [address] CARE Member Subscriber Plan / Payer ( fective 2018-) Name:Susana Arnold Relation to Subscriber:Self Name:SUSANA ARNOLD Payer ID:[id number] (NAIC) Type:O Address: [address] CARE Member Subscriber Plan / Payer ( fective 2018-) Name:Susana Arnold Relation to Subscriber:Self Name:SUSANA ARNOLD Payer ID:[id number] (NAIC) Type:O Address: [address] [facility] Member Subscriber Plan / Payer (Ef fective 2018-Present) Name:Clayton Susana Norris Relation to Subscriber:Self Name:SUSANA ARNOLD Jr Payer ID:[id number] ([facility]) Type:[employer] Address: [address] [facility] Member Subscriber Plan / Payer (Ef fective 2018-Present) Name:Susana Arnold Relation to Subscriber:Self Name:SUSANA ARNOLD Payer ID:[id number] ([facility]) Type:[employer] Address: [address] CARE Member Subscriber Plan / Payer (Ef fective 2018-Present) Name:Susana Arnold Relation to Subscriber:Self Name:CLAYTONSUSANA Jr Payer ID:[id number] ([facility]) Type:[employer] Address: [address] [facility] Member Subscriber Plan / Payer (Ef fective 2018-Present) Name:Susana Arnold Relation to Subscriber:Self Name:SUSANA ARNOLD Payer ID:[id number] ([facility]) Type:[employer] Address: [address] [facility] Member Subscriber Plan / Payer (Ef fective 2018-Present) Name:Susana Arnold Relation to Subscriber:Self Name:SUSANA ARNOLD Payer ID:[id number] (NAIC) Type:[employer] Address: [address] [facility] Member Subscriber Plan / Payer (Ef fective 2018-Present) Name:Susana Arnold Relation to Subscriber:Self Name:SUSANA ARNOLD Payer ID:[id number] (NAIC) Type:[employer] Address: [address] CARE Member Subscriber Plan / Payer (Ef fective 2018-Present) Name:Susana Arnold Relation to Subscriber:Self Name:SUSANA ARNOLD Payer ID:[id number] (NAIC) Type:[employer] Address: [address] CARE Member Subscriber Plan / Payer ( fective 2018-Present) Name:Susana Arnold Relation to Subscriber:Self Name:SUSANA ARNOLD Payer ID:[id number] (NAIC) Type:[employer] Address: [address] CARE [facility] Advance Directives * Full Code (Latest Code Status on File) Date Activated Date Inactivated Comments 10/07/2018 4:27 PM 10/10/2018 11:03 PM Care Teams Rod Filler Relationship Specialty [place] [address] [place] [address] PCP - General 11/23/20
[2024-10-26 17:39] VITALS: BP 124/104; PULSE 83; TEMP 36.2; O2SAT 100
--- NOTE | 2024-10-26 19:54 | ED_ITS ---
HPI - Headache General Chief Complaint: Headache Stated Complaint: migraine headache Time Seen by Provider: 10/26/24 19:44 History of Present Illness HPI Narrative: 34-year-old female with a history of migraines and anxiety presents to the emergency department for a migraine for the past 18 days. Patient states she has an extensive history with complicated migraines. She follows with a neurologist in [place] is very. She takes daily propranolol and Aimovig injections for migraine prevention and uses triptans, Ubrelvy, Tylenol ibuprofen for abortive therapy. She states she has been compliant with her regimen but has not had resolution of her migraine. She states that she started a prednisone taper as well that was prescribed by her neurologist today. States she took 60 mg of prednisone this morning. She presents to the ED because her migraine has not subsided. She does endorse a history of requiring migraine cocktails in the ED for persistent migraines. She states the migraine is on the right side over head and starts of the right forehead and radiates to the right occipital region. She reports associated photophobia and phonophobia. She denies recent head injury or trauma, diplopia or loss of vision, focal numbness or weakness. She does report some blurred vision which is not abnormal for her and her migraines. Denies fever. Related Data Home Medications ?Medication ?Instructions ?Recorded ?Confirmed ?Last Taken ?Type cetirizine 10 mg tablet (Zyrtec) 10 mg PO DAILY PRN 01/05/22 08/18/24 Unknown History cholecalciferol (vitamin D3) 125 125 mcg PO DAILY 01/05/22 08/18/24 Unknown History mcg (5,000 unit) capsule erenumab-aooe 70 mg/mL 70 mg subcut MONTHLY 04/20/22 08/18/24 Unknown History subcutaneous auto-injector (Aimovig Autoinjector) frovatriptan 2.5 mg tablet See Rx Instructions PO .COMPLEX 06/25/23 08/18/24 Unknown History propranolol 10 mg tablet 10 mg PO TID 06/25/23 08/18/24 Unknown History ubrogepant 100 mg tablet (Ubrelvy) 100 mg PO ONCE PRN 06/25/23 08/18/24 Unknown History cyclobenzaprine 10 mg tablet 10 mg PO TID PRN muscle spasm 08/18/24 08/18/24 Unknown History magnesium hydroxide 600 mg mg PO 08/18/24 08/18/24 Unknown History chewable tablet semaglutide 2.5 mg/mL subcutaneous mg subcut 08/18/24 08/18/24 Unknown History solution Allergies Allergy/AdvReac Type Severity Reaction Status Date / Time duloxetine (From Cymbalta) Allergy Severe Unknown Verified 10/26/24 18:19 amoxicillin (From Augmentin) Allergy Intermediate Rash Verified 10/26/24 18:19 clavulanic acid (From Allergy Intermediate Rash Verified 10/26/24 18:19 Augmentin) levofloxacin Allergy rash and Verified 10/26/24 18:19 emesis metronidazole AdvReac Intermediate Fever Verified 10/26/24 18:19 Review of Systems Review of Systems: All systems reviewed & are unremarkable except as noted in HPI and below PMFSH Past Medical History Medical History Anxiety Back pain GERD (gastroesophageal reflux disease) IBS (irritable bowel syndrome) Migraine Surgical History Surgical History History of exploratory laparotomy endometrial tissue removed- 09/2018 History of laparoscopic appendectomy Hx of tonsillectomy Family History Family History Mother Breast cancer Social History Social History Social History: 08/18/24 Smoking status: Never smoker Second hand tobacco smoke exposure: No Alcohol intake: never Substance use: never Substance use type: does not use Do You Feel Safe in your Home?: Yes Lack of Transportation: No Lack of Food: Never True Current Housing: I Have Housing Concerned About Future Housing: No Difficulty Paying Gas/Electric Bills: No Difficulty Paying for Meds: No Currently Unemployed: No Education: Bachelor's Degree Difficulty w/ Childcare or Family Care: No Living arrangements: with family Occupation/Education: occupation Gender identity (if verbalized by the patient): Female Sexual Orientation (if Verbalized by the Patient): Straight or Heterosexual Exam Narrative: GENERAL: Well-appearing, well-nourished, and in no acute distress. HEAD: Normocephalic, atraumatic. EYES: PERRLA and EOMI. ENT: Nares clear, no rhinorrhea or epistaxis. Mucous membranes moist. NECK: Supple. No nuchal rigidity CHEST: Clear to auscultation. No respiratory distress. HEART: Regular rate and rhythm. No murmur heard. Normal peripheral pulses. ABDOMEN: Soft, nontender, nondistended, normal active bowel sounds. EXTREMITIES: Normal range of motion. No edema. SKIN: Warm, dry, no rash. NEURO: No focal deficits. Alert and oriented x4. Cranial nerves 2-12 intact. Strength 5/5 in BUE and BLE. Sensation intact throughout. Normal [id number]. No pronator drift. Course Vital Signs Vital signs: Vital Signs Temperature 97.2 F L 10/26/24 17:39 Pulse Rate 83 10/26/24 17:39 Blood Pressure 124/104 H 10/26/24 17:39 Pulse Oximetry 100 10/26/24 17:39 Temperature 97.2 F L 10/26/24 17:39 Pulse Rate 83 10/26/24 17:39 Blood Pressure 124/104 H 10/26/24 17:39 Pulse Oximetry 100 10/26/24 17:39 MDM - Headache MDM Narrative Medical decision making narrative: 34-year-old female with history of migraines presents to emergency department for persistent migraine for 18 days. See HPI for further history. Triage vitals with elevated blood pressure, otherwise unremarkable. Patient is afebr ile and nontoxic appearing and resting comfortably in exam bed. She is neurovascularly intact with no lateralizing deficits. No fever meningeal signs. No head injury or trauma. Overall patient's presentation is reassuring consistent with her migraines. Will attempt migraine cocktail, IV fluids and magnesium and re-evaluate. Patient re-evaluated states she feels significantly improved. She is sitting up in exam bed, talking, smiling and ready to be discharged home. Advised her to continue her steroid taper to prevent rebound migraine and follow-up closely with her neurologist. Discussed strict ED return precautions. She is agreeable with the plan verbalized understanding. Discharged in stable condition. Discharge Plan Discharge Clinical Impression: Migraine Qualifiers: Migraine type: unspecified Status migrainosus presence: without status migrainosus Intractability: not intractable Qualified Code(s): G43.909 - Migraine, unspecified, not intractable, without status migrainosus Patient Disposition: Home Condition: Stable Instructions: Antibiotic Form, Migraine Headache (ED) Additional Instructions: You were evaluated in the emergency department for migraine. Your exam is reassuring. Your given IV fluids, headache cocktail and magnesium with improvement. Please continue your home regimen for migraine prevention and abortive migraine medications as needed. Please follow-up closely with her neurologist. Return to the emergency department if you develop confusion or altered mental status, loss of consciousness, vision changes, focal numbness or weakness, fever, or other concerning symptoms. Continue your steroid taper that was prescribed by your neurologist. Patient Language: Lithuanian Prescriptions: No Action cyclobenzaprine 10 mg tablet 10 mg PO TID PRN (Reason: muscle spasm) magnesium hydroxide 600 mg tablet,chewable PO semaglutide 2.5 mg/mL solution subcut cetirizine [Zyrtec] 10 mg tablet 10 mg PO DAILY PRN cholecalciferol (vitamin D3) 125 mcg (5,000 unit) capsule 125 mcg PO DAILY Aimovig Autoinjector 70 mg/mL auto-injector 70 mg subcut MONTHLY propranolol 10 mg tablet 10 mg PO TID frovatriptan 2.5 mg tablet See Rx Instructions PO .COMPLEX Rx Instructions: take 1 tab at onset of headache; if no relief, may repeat 1 tab after at least 2 hrs; max = 2 tabs/24 hrs PO Ubrelvy 100 mg tablet 100 mg PO ONCE PRN Rx Instructions: as a single dose; may repeat once in >=2 hours after first dose if needed sumatriptan succinate 100 mg tablet See Rx Instructions PO .COMPLEX Qty: 10 0RF Rx Instructions: take 1 tab at onset of headache; if no relief, may repeat 1 tab after at least 2 hrs; max = 2 tabs/24 hrs PO alprazolam 0.25 mg tablet 0.25 mg PO TID PRN (Reason: anxiety) Qty: 30 2RF Follow-up/Referrals: Analisa Pleitez PA-C [Primary Care Provider] -
--- OUTSIDE RECORDS SUMMARY | 2024-10-26 19:59 | XMS_ITS | Referral Summary ---
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
--- OUTSIDE RECORDS SUMMARY | 2024-10-26 19:59 | XMS_ITS | Encounter Summary ---
Author Organization [facility] Address [address] [place] [address] Care Team Providers Care Bobbin Collector Name Role Phone Reba Allen MA Primary Care Provider [facility] Herson Caal MD Primary Care Provider Encounter Details Date Type Department Care Team (Late st Contact Info) Description 08/21/2018 [facility] Outpatient Visit [facility] [address] [place] [address] Rosy Patino MD [address] [address] Social History Tobacco Use Types [...] on filedocumented in this encounter Care Teams Bobbin Collector Relationship Specialty Start Date End Date Reba Allen MA PCP - General 05/03/16 11/22/20 [place] [address] [place] [address] PCP - General 11/23/20 documented as of this encounter
--- OUTSIDE RECORDS SUMMARY | 2024-10-26 19:59 | XMS_ITS ---
Author Name YENIFER BAIG, PhD, DR. INGRID Lynch Address [address] [place], [place] [id number] Phone [phone] Organization [facility] Care Team Providers Care Tobacco Prizer Name Role Phone [address] Unavailable [phone] Reason for Referral Not Available Allergies, adverse reactions, alerts No known allergies Problem List No known problems Social History Sex Female Functional Status No Information Mental Status No Information Assessments Not Available Plan of Care Not Available
--- OUTSIDE RECORDS SUMMARY | 2024-10-26 19:59 | XMS_ITS | Clinical Summary ---
Author Organization [facility] Address [address] [place] [address] Care Team Providers Care Research Associate Professor Name Role Phone Herson Gupta MD Primary Care Provider Source Comments [facility],non-owned Affiliates and Associated Physician Practices is amultiple site organization consisting of ambulatory clinics and hospital sitesin [place], [place], [place] and [place]. This disclosure is being madepursuant to the Care Everywhere program and may not contain all information available regarding this patient. Last updated 18.[facility] Allergies Active Allergy Reactions Criticality Noted Date [...] (NAIC) Group ID:[id number] Type:PPO Address: [address] Member Subscriber Plan / Payer (Ef fective 2018-Present) Name:Susana Arnold Relation to Subscriber:Self Name:Susana Arnold Jr Payer ID:[id number] (NAIC) Type:O Address: [place] [id number] [place] [phone] [facility] Member Subscriber Plan / Payer (Ef fective 2018-Present) Name:Susana Arnold Jr Relation to Subscriber:Self Name:SUSANA ARNOLD Payer ID:[id number] (NAIC) Type:O Address: [address] [facility] Member Subscriber Plan / Payer (Ef fective 2018-Present) Name:Susana Arnold Relation to Subscriber:Self Name:SUSANA ARNOLD Payer ID:[id number] (NAIC) Type:PEAK-ITO Address: [address] C[facility] Member Subscriber Plan / Payer (Ef fective 2018-Present) Name:Susana Arnold Jr Relation to Subscriber:Self Name:SUSANA ARNOLD Payer ID:[id number] (NAIC) Type:PEAK-ITO Address: [address] C[facility] Member Subscriber Plan / Payer (Ef fective 2018-Present) Name:Susana Arnold Jr Relation to Subscriber:Self Name:SUSANA ARNOLD Payer ID:[id number] (NAIC) Type:PEAK-ITO Address: [address] [facility] Member Subscriber Plan / Payer (Ef fective 2018-Present) Name:Clayton Susana Jr Relation to Subscriber:Self Name:SUSANA ARNOLD Jr Payer ID:[id number] (NAIC) Type:PEAK-ITO Address: [address] [facility] Member Subscriber Plan / Payer (Ef fective 2018-Present) Name:Susana Arnold Jr Relation to Subscriber:Self Name:SUSANA ARNOLD Payer ID:[id number] (NAIC) Type:PEAK-ITO Address: [address] [facility] Member Subscriber Plan / Payer (Ef fective 2018-Present) Name:Susana Arnold Jr Relation to Subscriber:Self Name:SUSANA ARNOLD Jr Payer ID:[id number] (NAIC) Type:PEAK-ITO Address: [address] CARE Member Subscriber Plan / Payer (Ef fective 2018-Present) Name:Susana Arnold Jr Relation to Subscriber:Self Name:SUSANA ARNOLD Payer ID:[id number] (NAIC) Type:PEAK-ITO Address: [address] CARE Member Subscriber Plan / Payer (Ef fective 2018-Present) Name:Susana Arnold Relation to Subscriber:Self Name:SUSANA ARNOLD Jr Payer ID:[id number] (NAIC) Type:PEAK-ITO Address: [address] [facility] Member Subscriber Plan / Payer (Ef fective 2018-Present) Name:Susana Arnold Relation to Subscriber:Self Name:SUSANA ARNOLD Payer ID:[id number] (NAIC) Type:O Address: [address] [facility] Member Subscriber Plan / Payer (Ef fective 2018-Present) Name:Susana Arnold Relation to Subscriber:Self Name:SUSANA ARNOLD Payer ID:[id number] (NAIC) Type:NBO TV Address: [address] CARE Member Subscriber Plan / Payer (Ef fective 2018-Present) Name:Susana Arnold Relation to Subscriber:Self Name:SUSANA ARNOLD Payer ID:[id number] (NAIC) Type:PEAK-ITO Address: [address] CARE Member Subscriber Plan / Payer ( fective 2018-) Name:Susana Arnold Relation to Subscriber:Self Name:SUSANA ARNOLD Payer ID:[id number] (NAIC) Type:HMO Address: [address] CARE Member Subscriber Plan / Payer (Ef fective 2018-Present) Name:Susana Arnold Relation to Subscriber:Self Name:SUSANA ARNOLD Payer ID:[id number] (NAIC) Type:HMO Address: [address] [facility] Member Subscriber Plan / Payer (Ef fective 2018-Present) Name:Susana Arnold Relation to Subscriber:Self Name:SUSANA ARNOLD Payer ID:[id number] (NA) Type:PEAK-ITO Address: [address] [facility] Member Subscriber Plan / Payer (Ef fective 2018-Present) Name:Susana Arnold Jr Relation to Subscriber:Self Name:SUSANA ARNOLD Payer ID:[id number] ([facility]) Type:PEAK-ITO Address: [address] CARE Member Subscriber Plan / Payer (Ef fective 2018-Present) Name:Susana Arnold Jr Relation to Subscriber:Self Name:SUSANA ARNOLD Payer ID:[id number] (IC) Type:HMO Address: [address] [facility] Member Subscriber Plan / Payer (Ef fective 2018-Present) Name:ClaytonSusana Relation to Subscriber:Self Name:SUSANA ARNOLD Jr Payer ID:[id number] (NAIC) Type:HMO Address: [address] [facility] Member Subscriber Plan / Payer (Ef fective 2018-) Name:Susaan Arnold Relation to Subscriber:Self Name:SUSANA ARNOLD Payer ID:[id number] (NAIC) Type:O Address: [address] [facility] Member Subscriber Plan / Payer ( fective 2018-Present) Name:Susana Arnold Relation to Subscriber:Self Name:SUSANA ARNOLD Payer ID:[id number] (NAIC) Type:NBO TV Address: [address] CARE Member Subscriber Plan / Payer ( fective 2018-) Name:Susana Arnold Relation to Subscriber:Self Name:SUSANA ARNOLD Payer ID:[id number] (NAIC) Type:PEAK-ITO Address: [address] CARE Member Subscriber Plan / Payer ( fective 2018-) Name:Susana Arnold Relation to Subscriber:Self Name:SUSANA ARNOLD Payer ID:[id number] (NAIC) Type:O Address: [address] CARE Member Subscriber Plan / Payer ( fective 2018-) Name:Susana Arnold Relation to Subscriber:Self Name:SUSANA ARNOLD Payer ID:[id number] (NAIC) Type:O Address: [address] [facility] Member Subscriber Plan / Payer (Ef fective 2018-Present) Name:Clayton Susana Norris Relation to Subscriber:Self Name:SUSANA ARNOLD Jr Payer ID:[id number] ([facility]) Type:PEAK-ITO Address: [address] [facility] Member Subscriber Plan / Payer (Ef fective 2018-Present) Name:Susana Arnold Relation to Subscriber:Self Name:SUSANA ARNOLD Payer ID:[id number] ([facility]) Type:PEAK-ITO Address: [address] CARE Member Subscriber Plan / Payer (Ef fective 2018-Present) Name:Susana Arnold Relation to Subscriber:Self Name:CLAYTONSUSANA Jr Payer ID:[id number] ([facility]) Type:PEAK-ITO Address: [address] [facility] Member Subscriber Plan / Payer (Ef fective 2018-Present) Name:Susana Arnold Relation to Subscriber:Self Name:SUSANA ARNOLD Payer ID:[id number] ([facility]) Type:PEAK-ITO Address: [address] [facility] Member Subscriber Plan / Payer (Ef fective 2018-Present) Name:Susnaa Arnold Relation to Subscriber:Self Name:SUSANA ARNOLD Payer ID:[id number] (NAIC) Type:PEAK-ITO Address: [address] [facility] Member Subscriber Plan / Payer (Ef fective 2018-Present) Name:Susana Arnold Relation to Subscriber:Self Name:SUSANA ARNOLD Payer ID:[id number] (NAIC) Type:PEAK-ITO Address: [address] CARE Member Subscriber Plan / Payer (Ef fective 2018-Present) Name:Susana Arnold Relation to Subscriber:Self Name:SUSANA ARNOLD Payer ID:[id number] (NAIC) Type:PEAK-ITO Address: [address] CARE Member Subscriber Plan / Payer ( fective 2018-Present) Name:Susana Arnold Relation to Subscriber:Self Name:SUSANA ARNOLD Payer ID:[id number] (NAIC) Type:PEAK-ITO Address: [address] CARE [facility] Advance Directives * Full Code (Latest Code Status on File) Date Activated Date Inactivated Comments 10/07/2018 4:27 PM 10/10/2018 11:03 PM Care Teams Research Associate Professor Relationship Specialty [place] [address] [place] [address] PCP - General 11/23/20
--- OUTSIDE RECORDS SUMMARY | 2024-10-26 19:59 | XMS_ITS | Clinical Summary ---
Author Organization [facility] Address [address] [place] [address] Care Team Providers Care Wad Compressor Operator Adjuster Name Role Phone Omkar Carmen MD Primary Care Provider [phone] Allergies Active Allergy Reactions Criticality Noted Date [...] tablet Take 10 mg by mouth. Active [employer] Katja, migraine, Misc USE ONE 45 [...] Type Department Care Team Description 09/12/2024 Refill [facility] [address] [place] [phone] Ramin Wilson MD 08/19/2024 External Device Data [...] Comments Blood Pressure 110/70 04/03/2024 1:19 PM [facility] Pulse 74 04/03/2024 1:19 PM [facility] Temperature - - Respiratory Rate 16 03/19/2023 2:50 PM CDT Oxygen Saturation 99% 04/03/2024 1:19 PM [facility] Inhaled Oxygen Concentration - - Weight 72.4 kg (159 lb 9.6 oz) 04/03/2024 1:19 P M [facility] Height 152.4 cm (5') 04/03/2024 1:19 PM [facility] Body Mass Index 31.17 04/03/2024 1:19 PM [facility] Plan of Treatment Health Maintenance Due Date Last Done Comments DTAP/TDAP/TD VACCINES (1 - Tdap) 2011 HEPATITIS B VACCINES (1 of 3 - 19+ 3-dose series) 2011 HPV/Cotest (21-29) 2013 CERVICAL CANCER SCREENING 2022 HPV/Cotest (30-65) 2022 PAP SMEAR 2022 INFLUENZA VACCINE (#1) 2023 HPV VACCINES Aged Out No longer eligi ble based on patient's age to complete this topic Insurance [facility] [employer] ACCESS CHOICE Care Teams Wad Compressor Operator Adjuster Relationship Specialty Start Date End Date Omkar Carmen MD [address] [place] [id number] PCP - General Family Practice 09/11/22
--- OUTSIDE RECORDS SUMMARY | 2024-10-26 19:59 | XMS_ITS | Clinical Summary ---
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
[2024-10-26] MEDS: SODIUM CHLORIDE 0.9% IV 1,000 ML 999 ML IV CONT (20:31)
[2024-10-26] MEDS: diphenhydrAMINE HCl INJ 50 MG/ML VIAL 25 MG IV PUSH (20:32)
[2024-10-26] MEDS: KETOROLAC 30 MG/ML VIAL (*BKC) IV PUSH (20:32)
[2024-10-26] MEDS: PROCHLORPERAZINE EDISYLATE 10 MG/2 ML VIAL IV PUSH (20:32)
[2024-10-26] MEDS: MAGNESIUM SULF 2 GM/WATER 50ML 2 GM/50 ML BAG IVPB (20:40)
[2024-10-26 20:47] VITALS: BP 111/99; RESP 16; O2SAT 98
[2024-10-26 21:16] VITALS: BP 102/64; O2SAT 97
[2024-10-26 22:01] VITALS: BP 114/79; RESP 16; O2SAT 96
[2024-10-26 23:11] VITALS: BP 121/91; PULSE 92; RESP 16; TEMP 36.8; O2SAT 97
== END 2024-10-26 23:03 | disposition home or self-care (01) ==
PROVIDERS: Emergency Provider Physician Assistant; PCP Physician Assistant Medical
DX: G43.909 Migraine, unspecified, not intractable, without status migrainosus (principal); K21.9 Gastro-esophageal reflux disease without esophagitis
CPT/HCPCS: 96365; 96366; 96375; 99284; J0780; J1200; J1885; J3475; J7030

== ENCOUNTER 2024-11-16 12:17 | Emergency (ER) | payer BC, SELFPAY ==
[2024-11-16 12:35] VITALS: BP 123/85; PULSE 87; RESP 16; TEMP 36.6; O2SAT 100
--- NOTE | 2024-11-16 13:28 | ECG_ITS ---
Test Date: 2024-11-16 13:35:55 Measurements Intervals [place] Rate: 75 P: 4 IL: 116 QRS: 34 QRSD: 98 T: 13 QT: 388 QTc: 434 Interpretive Statements SINUS RHYTHM WITH SHORT IL INTERVAL LOW QRS VOLTAGE IN PRECORDIAL LEADS BORDERLINE T WAVE ABNORMALITY- ANTERIOR LEADS BASELINE ARTIFACT- II, III, AVR, AVL, AVF BORDERLINE ECG No previous ECG available for comparison Electronically Signed On 11-16-2024 13:48:46 CDT by Alonso Rashid D.O.
--- NOTE | 2024-11-16 13:55 | ED.ABDPAIN ---
HPI - Abdominal Pain General Chief Complaint: Abdominal Pain Stated Complaint: ABD PAIN/SHOULDER PAIN Time Seen by Provider: 11/16/24 13:15 Source: patient and RN notes reviewed Mode of arrival: ambulatory Limitations: no limitations History of Present Illness HPI narrative: 34-year-old female presents [facility] complaining multiple medical complaints. Patient states she is having right upper quadrant pain that started approximately 3 weeks ago. Patient states the pain comes and goes and states that sharp stabbing pain. Patient reports the pain comes on after she eats a meal. She then gets nausea and she says she started having loose stools yesterday. Patient also reports that she is also having left scapular pain, she denies any injury or any pain with moving of her left scapula. Patient reports the pain as a dull and stabbing pain. Patient is also noted she is having chest pressure when laying down and also some shortness of breath. Patient denies any chest pain with exertion, dizziness, lightheadedness, loss of consciousness, blood in her stools, vomiting blood, urinary symptoms, fevers, body aches, chills. Patient denies any significant past medical history. Patient states she has a family history of AFib. Patient denies taking any control, any history of blood clots, any injuries, or recent surgeries. Patient states she has a history of high cholesterol but that was not high enough to start medication. Patient is a nonsmoker. Patient states she is unable to get into her primary for another 4-5 weeks. Related Data Home Medications ?Medication ?Instructions ?Recorded ?Confirmed ?Last Taken ?Type cetirizine 10 mg tablet (Zyrtec) 10 mg PO DAILY PRN 01/05/22 08/18/24 Unknown History cholecalciferol (vitamin D3) 125 125 mcg PO DAILY 01/05/22 08/18/24 Unknown History mcg (5,000 unit) capsule erenumab-aooe 70 mg/mL 70 mg subcut MONTHLY 04/20/22 08/18/24 Unknown History subcutaneous auto-injector (Aimovig Autoinjector) frovatriptan 2.5 mg tablet See Rx Instructions PO .COMPLEX 06/25/23 08/18/24 Unknown History propranolol 10 mg tablet 10 mg PO TID 06/25/23 08/18/24 Unknown History ubrogepant 100 mg tablet (Ubrelvy) 100 mg PO ONCE PRN 06/25/23 08/18/24 Unknown History cyclobenzaprine 10 mg tablet 10 mg PO TID PRN muscle spasm 08/18/24 08/18/24 Unknown History magnesium hydroxide 600 mg mg PO 08/18/24 08/18/24 Unknown History chewable tablet semaglutide 2.5 mg/mL subcutaneous mg subcut 08/18/24 08/18/24 Unknown History solution Allergies Allergy/AdvReac Type Severity Reaction Status Date / Time duloxetine (From Cymbalta) Allergy Severe Unknown Verified 10/26/24 18:19 amoxicillin (From Augmentin) Allergy Intermediate Rash Verified 10/26/24 18:19 clavulanic acid (From Allergy Intermediate Rash Verified 10/26/24 18:19 Augmentin) levofloxacin Allergy rash and Verified 10/26/24 18:19 emesis metronidazole AdvReac Intermediate Fever Verified 10/26/24 18:19 Review of Systems Review of Systems: CONSTITUTIONAL: Denies fever, chills, or sweats. EYES: Denies visual changes, redness, or discharge. ENT: Denies rhinorrhea, congestion, sore throat, or otalgia. CARDIOVASCULAR: Positive for chest pressure. Negative for chest pressure with exertion, dizziness, lightheadedness, loss of consciousness, Palpitations, or edema. RESPIRATORY: Denies cough difficulty breathing, or wheezing. Positive for dyspnea. GASTROINTESTINAL: Positive for abdominal pain, nausea, or diarrhea. Negative for vomiting, hematochezia, melena. GENITOURINARY: Denies dysuria or hematuria. SKIN: Denies rash or itching. MUSCULOSKELETAL: Denies back pain, joint pain, or myalgia. Positive for left scapular pain. NEUROLOGIC: Denies headache, numbness, or weakness. PSYCHIATRIC: Denies anxiety or depression. All other systems reviewed are negative, except as documented in HPI. [facility] Past Medical History Medical History Anxiety Back pain GERD (gastroesophageal reflux disease) IBS (irritable bowel syndrome) Migraine Surgical History Surgical History History of exploratory laparotomy endometrial tissue removed- 09/2018 History of laparoscopic appendectomy Hx of tonsillectomy Family History Family History Mother Breast cancer Social History Social History Social History: 08/18/24 Smoking status: Never smoker Second hand tobacco smoke exposure: No Alcohol intake: never Substance use: never Substance use type: does not use Do You Feel Safe in your Home?: Yes Lack of Transportation: No Lack of Food: Never True Current Housing: I Have Housing Concerned About Future Housing: No Difficulty Paying Gas/Electric Bills: No Difficulty Paying for Meds: No Currently Unemployed: No Education: Bachelor's Degree Difficulty w/ Childcare or Family Care: No Living arrangements: with family Occupation/Education: occupation Gender identity (if verbalized by the patient): Female Sexual Orientation (if Verbalized by the Patient): Straight or Heterosexual Comments At the time of my signature, I reviewed and agree with the nursing past medical, surgical, social, and family history. There is no relevant family history pertinent to the patient complaint. Exam Narrative: GENERAL: This is a well-nourished, well-developed adult, in no apparent distress. They are non ill-appearing, nontoxic appearing. HEAD: normocephalic, atraumatic. EYES: Sclera clear/white. Conjunctiva normal. Vision is grossly intact. Extraocular movements intact EARS: External ears normal, Hearing grossly intact. NOSE: External nose normal THROAT: Mucous membranes moist, NECK: Neck supple, CARDIOVASCULAR: Regular rate and rhythm without murmurs, gallops, or rubs. RESPIRATORY: Clear to auscultation. Breath sounds equal bilaterally. No wheezes, rales, or rhonchi. Respiratory rate normal, respiratory effort nonlabored, no respiratory distress GASTROINTESTINAL: Abdomen large, soft, non-tender, nondistended. Bowel sounds are active. No hepato-splenomegaly, or palpable masses. No guarding or rigidity. Negative Harris's sign. No rebound tenderness. SKIN: warm, Dry, intact with no suspicious lesions or rash, good texture and turgor. NEURO: awake, alert, and oriented to person, place and time. There were no obvious focal neurologic abnormalities. EXTREMITIES: No joint tenderness, effusion, or edema noted. Left shoulder: No bony tenderness, nontender through full range of motion of shoulder. Neurovascular status intact. Normal sensation. Corey refill less than 2 seconds. BACK: Nontender without deformity. No CVA tenderness. Course Course Emergency Course: Portions of this record may have been created with voice recognition software Level of Care: [facility] Visit Vital Signs Vital signs: Vital Signs Temperature 97.8 F 11/16/24 12:35 Pulse Rate 87 11/16/24 12:35 Respiratory Rate 16 11/16/24 12:35 Blood Pressure 123/85 11/16/24 12:35 Pulse Oximetry 100 11/16/24 12:35 Temperature 97.8 F 11/16/24 12:35 Pulse Rate 87 11/16/24 12:35 Respiratory Rate 16 11/16/24 12:35 Blood Pressure 123/85 11/16/24 12:35 Pulse Oximetry 100 11/16/24 12:35 Reviewed Transfer Transfered to: [facility] Transportation: Other (Private vehicle) Transfer rationale: Higher level care, abdominal pain, chest pain, dyspnea, advanced imaging and lab work Accepting physician: Dr. Dacosta MDM - Abdominal Pain MDM Narrative Medical decision making narrative: EKG sinus rhythm short WA interval, no ischemic findings. EKG reassuring. Resources limited at [facility], we are unable do lab work or advanced imaging. Discussed this with patient. Through shared decision making with patient she has requested to go to the ER further evaluation and management of her symptoms. Patient is agreeable to go to [facility] ER. Called over to [facility] and spoke to Dr. Dacosta is aware this patient accepted the patient for transfer. Patient advised to remain NPO and proceed immediately to the ER. Patient said she will go by private vehicle and her significant other will take her. Differential Diagnosis Differential diagnosis: Likely other (Cholecystitis, gastritis, gastric ulcer, pulmonary embolism, ACS) ECG Data EKG #1: Attestation: I personally reviewed and interpreted this ECG as follows: ECG completion date: 11/16/24 ECG completion time: 13:35 Prior ECG tracings: not available for review normal rate, sinus rhythm, no ectopy, no ST changes and other (Short WA interval) Critical Care Time Critical Care Time Critical Care Time: No Discharge Plan Discharge Clinical Impression: Abdominal pain, RUQ, Nausea, Chest pressure Patient Disposition: Acute Care Hospital Condition: Stable Patient Language: Chilean Prescriptions: No Action cyclobenzaprine 10 mg tablet 10 mg PO TID PRN (Reason: muscle spasm) magnesium hydroxide 600 mg tablet,chewable PO semaglutide 2.5 mg/mL solution subcut cetirizine [Zyrtec] 10 mg tablet 10 mg PO DAILY PRN cholecalciferol (vitamin D3) 125 mcg (5,000 unit) capsule 125 mcg PO DAILY Aimovig Autoinjector 70 mg/mL auto-injector 70 mg subcut MONTHLY propranolol 10 mg tablet 10 mg PO TID frovatriptan 2.5 mg tablet See Rx Instructions PO .COMPLEX Rx Instructions: take 1 tab at onset of headache; if no relief, may repeat 1 tab after at least 2 hrs; max = 2 tabs/24 hrs PO Ubrelvy 100 mg tablet 100 mg PO ONCE PRN Rx Instructions: as a single dose; may repeat once in >=2 hours after first dose if needed sumatriptan succinate 100 mg tablet See Rx Instructions PO .COMPLEX Qty: 10 0RF Rx Instructions: take 1 tab at onset of headache; if no relief, may repeat 1 tab after at least 2 hrs; max = 2 tabs/24 hrs PO alprazolam 0.25 mg tablet 0.25 mg PO TID PRN (Reason: anxiety) Qty: 30 2RF Follow-up/Referrals: Analisa Pleitez PA-C [Primary Care Provider] - Time of Disposition: 13:50
== END 2024-11-16 13:49 | disposition short-term general hospital (02) ==
PROVIDERS: PCP Physician Assistant Medical
DX: R10.11 Right upper quadrant pain (principal); R11.0 Nausea; R07.89 Other chest pain; K21.9 Gastro-esophageal reflux disease without esophagitis
CPT/HCPCS: 93005; 99213; G0463

== ENCOUNTER 2024-12-09 13:34 | Outpatient (CLI) | payer BC, SELFPAY ==
--- OUTSIDE RECORDS SUMMARY | 2024-12-09 13:43 | XMS_ITS | Clinical Summary ---
Author Organization [facility] Address [address] [place] [address] Care Team Providers Care Slag Wheeler Name Role Phone Herson Gupta MD Primary Care Provider Source Comments [facility],non-owned Affiliates and Associated Physician Practices is amultiple site organization consisting of ambulatory clinics and hospital sitesin [place], [place], [place] and [place]. This disclosure is being madepursuant to the Care Everywhere program and may not contain all information available regarding this patient. Last updated 18.[facility] Allergies Active Allergy Reactions Criticality Noted Date [...] of 3 - 19+ 3-dose series) 2011 HPV VACCINE (1 - 3-dose SCDM series) 2019 COVID-19 VACCINE (1 - 2023-2 5 season) 2024 DEPRESSION SCREENING 05/21/2024 INFLUENZA VACCINE (#1) 2025 ZOSTER VACCINE (1 of 2) 2042 [...] (NAIC) Group ID:[id number] Type:PPO Address: [address] Member Subscriber Plan / Payer (Ef fective 2018-Present) Name:Susana Arnold Relation to Subscriber:Self Name:Susana Arnold Jr Payer ID:[id number] (NAIC) Type:O Address: [place] [id number] [place] [id number] [facility] Member Subscriber Plan / Payer (Ef fective 2018-Present) Name:Susana Arnold Jr Relation to Subscriber:Self Name:SUSANA RANOLD Payer ID:[id number] (NAIC) Type:O Address: [address] CARE Member Subscriber Plan / Payer (Ef fective 2018-Present) Name:Susana Arnold Jr Relation to Subscriber:Self Name:SUSANA ARNOLD Payer ID:[id number] (NAIC) Type:[employer] Address: [address] CARE Member Subscriber Plan / Payer (Ef fective 2018-Present) Name:Susana Arnold Jr Relation to Subscriber:Self Name:SUSANA ARNOLD Payer ID:[id number] (NAIC) Type:O Address: [address] C[facility] Member Subscriber Plan / Payer (Ef fective 2018-Present) Name:Susana Arnold Jr Relation to Subscriber:Self Name:SUSANA ARNOLD Payer ID:[id number] (NAIC) Type:[employer] Address: [address] C[facility] Member Subscriber Plan / Payer (Ef fective 2018-Present) Name:Susana Arnold Relation to Subscriber:Self Name:SUSANA ARNOLD A Payer ID:[id number] (NAIC) Type:[employer] Address: [address] [facility] Member Subscriber Plan / Payer (Ef fective 2018-Present) Name:Susana Arnold Jr Relation to Subscriber:Self Name:SUSANA ARNOLD Jr Payer ID:[id number] (NA) Type:[employer] Address: [address] [facility] Member Subscriber Plan / Payer (Ef fective 2018-Present) Name:Clayton Susana Norris Relation to Subscriber:Self Name:CLAYTONSUSANA Payer ID:[id number] ([employer]) Type:[employer] Address: [address] CARE Member Subscriber Plan / Payer (Ef fective 2018-Present) Name:Clayton Susana Jr Relation to Subscriber:Self Name:SUSANA ARNOLD Jr Payer ID:[id number] ([employer]) Type:HMO Address: [address] CARE Member Subscriber Plan / Payer (Ef fective 2018-Present) Name:Susana Arnold Relation to Subscriber:Self Name:SUSANA ARNOLD Jr Payer ID:[id number] (NAIC) Type:HMO Address: [address] [facility] Member Subscriber Plan / Payer (Ef fective 2018-) Name:Susana Arnold Relation to Subscriber:Self Name:SUSANA ARNOLD Payer ID:[id number] (NAIC) Type:O Address: [address] [facility] Member Subscriber Plan / Payer (Ef fective 2018-Present) Name:Susana Arnold Relation to Subscriber:Self Name:SUSANA ARNOLD Payer ID:[id number] (NAIC) Type:[employer] Address: [address] Member Subscriber Plan / Payer ( fective 2018-) Name:Susana Arnold Relation to Subscriber:Self Name:SUSANA ARNOLD Payer ID:[id number] (NAIC) Type:[employer] Address: [address] CARE Member Subscriber Plan / Payer ( fective 2018-) Name:Susana Arnold Relation to Subscriber:Self Name:SUSANA ARNOLD Payer ID:[id number] (NAIC) Type:[employer] Address: [address] CARE Member Subscriber Plan / Payer ( fective 2018-Present) Name:Susana Arnold Relation to Subscriber:Self Name:SUSANA ARNOLD Payer ID:[id number] (NAIC) Type:HMO Address: [address] [facility] Member Subscriber Plan / Payer (Ef fective 2018-Present) Name:Suasna Arnold Jr Relation to Subscriber:Self Name:SUSANA ARNOLD Jr Payer ID:[id number] (NAIC) Type:[employer] Address: [address] [facility] Member Subscriber Plan / Payer (Ef fective 2018-Present) Name:ClaytonSusana Relation to Subscriber:Self Name:CLAYTONSUSANA Payer ID:[id number] (NAIC) Type:[employer] Address: [address] CARE Member Subscriber Plan / Payer (Ef fective 2018-Present) Name:ClaytonPedroSusana Jr Relation to Subscriber:Self Name:SUSANA ARNOLD Jr Payer ID:[id number] (NAIC) Type:HMO Address: [address] [facility] Member Subscriber Plan / Payer (Ef fective 2018-Present) Name:ChisholmSusana hoang Relation to Subscriber:Self Name:SUSANA ARNOLD Jr Payer ID:[id number] (NAIC) Type:HMO Address: [address] [facility] Member Subscriber Plan / Payer (Ef fective 2018-Present) Name:Susana Arnold Relation to Subscriber:Self Name:SUSANA ARNOLD Payer ID:[id number] (NAIC) Type:O Address: [address] [facility] Member Subscriber Plan / Payer ( fective 2018-) Name:Susana Arnold Relation to Subscriber:Self Name:SUSANA ARNOLD Payer ID:[id number] (NAIC) Type:O Address: [address] CARE Member Subscriber Plan / [facility] Name:Susana Arnold Relation to Subscriber:Self Name:SUSANA ARNOLD Payer ID:[id number] (NAIC) Type:O Address: [address] CARE Member Subscriber Plan / Payer ([facility]2018-) Name:Susana Arnold Relation to Subscriber:Self Name:SUSANA ARNOLD Payer ID:[id number] (NAIC) Type:O Address: [address] CARE Member Subscriber Plan / Payer ( fective 2018-) Name:Susana Arnold Relation to Subscriber:Self Name:SUSANA ARNOLD Payer ID:[id number] (NAIC) Type:HMO Address: [address] [facility] Member Subscriber Plan / Payer (Ef fective 2018-) Name:Clayton Susana Jr Relation to Subscriber:Self Name:SUSANA ARNOLD Jr Payer ID:[id number] (NAIC) Type:[employer] Address: [address] [facility] Member Subscriber Plan / Payer (Ef fective 2018-) Name:Susana Arnold Relation to Subscriber:Self Name:CLAYTONSUSANA Payer ID:[id number] (NAIC) Type:[employer] Address: [address] CARE Member Subscriber Plan / Payer (Ef fective 2018-) Name:Susana Arnold Relation to Subscriber:Self Name:SUSANA ARNOLD Jr Payer ID:[id number] (NAIC) Type:[employer] Address: [address] [facility] Member Subscriber Plan / Payer (Ef fective 2018-) Name:Susana Arnold Relation to Subscriber:Self Name:SUSANA ARNOLD Payer ID:[id number] (NAIC) Type:[employer] Address: [address] [facility] Member Subscriber Plan / Payer (Ef fective 2018-) Name:Susana Arnold Relation to Subscriber:Self Name:SUSANA ARNOLD Payer ID:[id number] (NAIC) Type:[employer] Address: [address] [facility] Member Subscriber Plan / Payer (Ef fective 2018-Present) Name:Susana Arnold Relation to Subscriber:Self Name:SUSANA ARNOLD Payer ID:[id number] (NAIC) Type:[employer] Address: [address] Member Subscriber Plan / Payer (Ef fective 2018-Present) Name:Susana Arnold Relation to Subscriber:Self Name:SUSANA ARNOLD Payer ID:[id number] (NAIC) Type:[employer] Address: [address] CARE Member Subscriber Plan / Payer (Ef fective 2018-Present) Name:Susana Arnold Relation to Subscriber:Self Name:SUSANA ARNOLD Payer ID:[id number] (NAIC) Type:[employer] Address: [address] CARE [facility] Advance Directives * Full Code (Latest Code Status on File) Date Activated Date Inactivated Comments 10/07/2018 4:27 PM 10/10/2018 11:03 PM Care Teams Slag Wheeler Relationship Specialty [place] [id number] [place] [address] PCP - General 11/23/20
--- OUTSIDE RECORDS SUMMARY | 2024-12-09 13:43 | XMS_ITS | Data Portability ---
Author Organization [facility], [id number] Address [address] [place] [address] Assessment No assessment recorded. Plan of Treatment Reminders Order Date Submit Date Provider Last Modified By Organization Details Last Modified Time Details Appointments ANNUAL- EST 15 2024 07:30A M JIMMY ESPINOZA WHNP Not available Not available Not available Lab wet mount panel, vaginal fluid 2024 025 bgelly [id number] Barry Blackwell, [address], [place], [address], 07/18/2024 12:02:38 rusty wet prep 2024 025 bgelly [id number] Barry Blackwell, [address], [place], [address], 07/18/2024 12:02:38 Referral None recorded . Procedures None recorded . Surgeries None recorded . Imaging None recorded . Medication Orders None recorded . Patient TargetsNo targets recorded. Patient Instructions Encounter Date Encounter Id Patient Instructions Last Modified By Organization Details Last Modified Time 07/18/2024 [id number] she'll try boric acid capsules on amazon, to be more proactive. exam and wet mt NL today, and no symptoms now. bgelly Not available 07/18/2024 11:52:22 Reason for Referral None Reported. Results Created Date Observation Date Name Description Value Unit Range Abnormal Flag Note LastModifiedBy Organization Detail LastModifiedTime 07/18/19 25 07/18/2024 rusty wet prep Hyphae Absent Not Available [id number] Barry [address] , [place], [address], 07/18/2024 12:01:30 07/18/1907/18/2024 wet mount panel , vagin al fluid Unknown Analyte <20% Not Available [address] , [place], [address], 07/18/2024 12:01:28 07/18/1907/18/2024 wet mount panel , vagin al fluid Unknown Analyte Negati ve Not Available [address] , [place], [address], 07/18/2024 12:01:28 07/18/1907/18/2024 wet mount panel , vagin al fluid Unknown Analyte Negati ve Not Available [address] , [place], [address], 07/18/2024 12:01:28 07/18/1907/18/2024 wet mount panel , vagin al fluid Unknown Analyte Rare Not Available [address] , [place], [address], 07/18/2024 12:01:28 Result Notes None recorded. Problems Name Problem SNOMED Code Status Onset Date Resolution Date Notes Provider Name and Address Organization Details Recorded Time Endometri osis (clinical ) 051920593 Active Endometri osis, Problem Code: 617.9; Problem Code Type: ICD-9; Not Available [facility] 5 12:54:02 Anxiety state 976104286 Active Anxiety Disorder, Generaliz ed, - [employer]rees[employer] 2 Problem Code: 300.00; Problem Code Type: ICD-9; Not Available [facility] 12:54:02 Generaliz ed osteoarth ritis 864509804 Active Arthritis , Osteoarth ritis, - [employer]rees[employer] 2 Problem Code: 715.00; Problem Code Type: ICD-9; Not Available [facility] 5 12:54:02 Anxiety 00819675 Active 2024 Jody Sheridan null, [place] - [facility] 5 09:31:40 Osteoarth clau 582441158 Active 2024 Jody Sher[place] [facility] 5 09:32:09 History of endometri osis 99992734394 049438 Active 2024 Jody Sher[place] [facility] 5 09:32:40 Migraine 90007295 Active 2024 Jody [place] [facility] 5 09:32:49 Vaginal discharge 930245975 Active 2024 WILNER GAN MD [address], [place], [address] , [place] - [facility] 5 11:45:15 Pruritus of vulva 57004600 Active 2024 WILNER GAN MD [address], [facility] [address] , [place] [facility] 5 11:45:21 Problem Notes None recorded. Procedures Surgical History Date Name Laterality Status Provider Name and Address Organization Details Recorded Time 02/23/20 24 Date of Last Pap Smear completed Jody Sheridan [place] [facility] 07/18/2024 11:28:55 09/17/19 19 Date of Last Colonoscopy completed [place]ody [place] [facility] 07/18/2024 11:28:55 08/02/19 19 Date of Last Mammogram completed [place] [facility] 07/18/2024 08:28:53 10/20/19 12 endoscopy completed [place] [facility] 07/18/2024 09:04:34 05/21/19 12 colposcopy completed [place] [facility] 07/18/2024 09:04:18 05/21/19 07 Tonsillectomy [place] [facility] 07/18/2024 09:05:15 Appendectomy [place] [facility] 07/18/2024 09:03:42 Colonoscopy [place] [facility] 07/18/2024 09:04:00 Laparoscopy [place] [facility] 07/18/2024 09:05:51 extraction of wisdom tooth completed [place] [facility] 07/18/2024 09:05:24 tonsillectomy completed Not Available [facility] 09/18/2024 15:55:05 colposcopy completed Not Available [facility] 09/18/2024 15:55:05 endoscopy completed Not Available [place] [address] 09/18/2024 15:55:05 laparoscopy completed Not Available [facility] 09/18/2024 15:55:06 colonoscopy completed Not Available [facility] 09/18/2024 15:55:06 Imaging Results None recorded. Procedure Notes None recorded. Medical Equipment None Reported. Allergies Allergen ID Allergen Name Allergen Category Reaction Reaction Severity Criticality Documentation Date Start Date Code Code System Note Provider Name and Address Organization Details Recorded Time 300548 peanut allergeni c extract food,medi cation Not available Not available Not available 07/18/2024 50364 8 RxNorm Jody Sheridan null, [place] [facility] 5 11:28:03 871419 metronida zole medicatio n itching Not available Not available 07/18/2024 6922 RxNorm Jody [place] [facility] 5 11:28:03 511552 latex environme nt,medica tion Not available Not available Not available 07/18/2024 04786 91 RxNorm Jody Sher[place] null, [place] [facility] 5 11:28:03 244166 cat dander environme nt Not available Not available Not available 07/18/2024 41802 UNK Jody Sheriadn null, [facility] 5 11:28:03 955053 mold extract environme nt Not available Not available Not available 07/18/2024 82042 8 RxNorm Jody Sheridan null, [facility] 5 11:28:03 692288 Flagyl medicatio n itching Not available Not available 07/18/2024 79513 6 RxNorm Jody Sheridan null, [place] [facility] 5 11:31:00 939103 Levaquin medicatio n hives Not available Not available 09/18/2024 69762 2 RxNorm Not Available [facility] 5 13:17:30 348302 Augmentin medicatio n hives Not available Not available 09/18/2024 47905 2 RxNorm NOTE: Not Available [facility] 5 13:17:31 Medications Name Sig Start Date [...] Body mass index (BMI) Body weight Systolic And Diastolic Provider Name and Address Organization Details Last Updated DateTime 07/18/2024 153.04 cm 153.04 cm 29.6 kg/m2 86327.63 g 116/72 mm[Hg] Jody Sheridan [facility] 11:29:18 Social History Question Answer Notes LastModified by Organizat ion Details LastModified Time Tobacco Smoking Status Never Smoker Jody Sheridan [facility] 07/18/2024 11:29:03 Do You Have An Advance Directive? No [email or web address] Information not available 07/18/2024 If You Are , What Was Your Level Of Alcohol Consumption Prior To ? None [email or web address] Information not available 07/18/2024 What Is Your Level Of Caffeine Consumption? Occasional [email or web address] Information not available 07/18/2024 What Type Of Diet Are You Following? REGULAR [email or web address] Information not available 07/18/2024 How Many Times Per Week Do You Exercise? Less Than 1 Time Per Week SocialHist oryQuestio n: 'Active But No Formal Exercise'; [email or web address] Information not available 09/18/2024 What Is Your Relationship Status? [email or web address] Information not available 07/18/2024 Sex: Unknown Functional Status Question Answer Note LastModified by Organizat ion Details LastModified Time Do you use any illicit or recreational drugs? No [email or web address] Information not available 07/18/2024 What is your level of alcohol consumption? None [email or web address] Information not available 07/18/2024 Are you currently employed? 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 [email or web address] Information not available 07/18/2024 Mental Status None recorded. Family History Relationship Description Onset Age of this Age Resolved Age Notes LastModified by Organization Details LastModified Time Sister Family history of malignant neoplasm of thyroid [email or web address] Not available 2024 11:28:52 Sister Hypothyroidi sm [email or web address] Not available 2024 11:28:52 Paternal Grandfather Family history of malignant neoplasm of lung [email or web address] Not available 2024 11:28:52 Paternal Grandfather Heart disease [email or web address] Not available 2024 11:28:52 Mother Family history of breast cancer [email or web address] Not available 2024 11:28:52 Mother Kidney stone [email or web address] Not avai lable 07/18/2024 11:28:52 Mother Malignant tumor of breast [email or web address] Not available 2024 11:28:52 Father Heart disease [email or web address] Not available 2024 11:28:52 Father Hypertensive disorder [email or web address] Not available 2024 11:28:52 Father Kidney stone [email or web address] Not avai lable 07/18/2024 11:28:52 Father Malignant [...] SNOMED-CT Code Diagnosis ICD10 Code Diagnosis Note [id number] WILNER GAN MD [id number] [facility] [address] [place] [address] 07/18/2024 11:22:39 07/18/2024 11:54:23 Vaginal discharge 298898951 N89.8 Pruritus of vulva 152776 00 L29.2 Health Concerns Section Related Observation LastModified by Organization Detai ls LastModified Time None Recorded Concern Status LastModified by Organization Details LastModified Time None Recorded Advance Directives Directive N: Payers Insurance Date Sequence Insurance Name Policy Number Policy Quiñones Covered Member ID Quiñones Member ID Guarantor Name 07/24/2024 1 [place] [id number] Zeenat Arnold [id number] Zeenat Arnold Notes Date Note Type [...] scheduled mar 09 WILNER GAN MD [address], [place], [address], [facility] 07/18/2024 12:03:14 OBGyn Episode No OBEpisode recorded.
--- OUTSIDE RECORDS SUMMARY | 2024-12-09 13:43 | XMS_ITS | Encounter Summary ---
Author Organization [facility] Address [address] [place] [address] Care Team Providers Care Personnel Coordinator Name Role Phone Herson Gupta MD Primary Care Provider [phone] Deneen Ko Primary Care Provider [phone] Encounter Details Date Type Department Care Team (Late st Contact Info) Description 02/20/2021 Enviable Abodet Message Enc [facility] Family & Internal Medicine [facility] [address] [place] [address] Herson Gupta MD [address] [place] [address] RE: Medication Questions Social History Tobacco Use Types Packs/Day Years Used Date Smoking Tobacco: Never Smokeless Tobacco: Never Alcohol Use Standard Drinks/Week Comments No 0 (1 standard drink = 0.6 oz pur e alcohol) AUDIT-C Answer Date Recorded Frequency of Alcohol Consumption Never 05/07/2019 Average Number of Drinks Not on file 019 Frequency of Binge Drinking Not on file 04/20 PHQ-2 Answer Date Recorded PHQ-2 Score - If the patient scores above 3, please move on to questions 3-9 0 02/17/2021 Comments No Sex and Gender Information Value Date Recorded Sex Assigned at Not on file Legal Sex Female 7:32 AM CDT Gender Identity Not on file Sexual Orientation Not on file COVID-19 Exposure Response Date Recorded In the last month, have you been in contact with someone who was confirmed or suspected to have Coronavirus / COVID-19? No / Unsure 02/16/2021 1:33 PM CDT documented as of this encounter Plan of Treatment Not on file documented as of this encounter Visit Diagnoses Not on filedocumented in this encounter Additional Health Concerns Assessment Noted Time PHQ-9 Depression Total Score: 0 02/18/20 21 7:51 AM CDT documented as of this encounter Care Teams Personnel Coordinator Relationship Specialty [place] [address] [place] [address] PCP - General FAMILY PRACTICE 10/17/19 12/19/21 [place] [address] [place] [address] PCP - General PHYSICIAN FOOD COUNSELOR 12/20/21 documented as of this encounter
--- OUTSIDE RECORDS SUMMARY | 2024-12-09 13:43 | XMS_ITS | Clinical Summary ---
Author Organization [facility] Address [facility] [place] [address] Care Team Providers Care Sheather Name Role Phone Deneen Ko Primary Care Provider [phone] Allergies Active Allergy Reactions Criticality Noted Date Comments Amoxicillin-Pot Clavulanate Hives,Rash Medium 03/04/20 16 Metronidazole Rash,Vomiting Low 05/07/2019 Medications Prenat-Fe Ldigrvfs-GZ-Vvjcb 3 (ONE-A-DAY WOMENS 1 OR) 0 Active Cholecalciferol (VITAMIN D) 125 MCG (5000 UT) Cap 1 Active Cetirizine HCl (ZYRTEC ALLERGY) 10 MG Cap 3 Active ALPRAZolam 0.25 MG tabletIndications:A nxiety Take 1 tablet (0.25 mg total) by mouth 3 (three) times daily as needed for Sleep. 30 tablet 1 Active traMADol 50 MG tabletIndications:A cute Pain < 7 Day Supply Take 1 tablet (50 mg total) by mouth every 6 (six) hours as needed for Pain. Indications: Acute Pain < 7 Day Supply 28 tablet 1 Active Erenumab-aooe (AIMOVIG) 70 MG/ML Solution Auto-injector Inject 70 mg into the skin. 2 Active frovatriptan (FROVA) 2.5 MG tablet Take 2.5 mg by mouth. 2 Active SUMAtriptan (IMITREX) 100 MG tablet Take 100 mg by mouth. 2 Active cyclobenzaprine (FLEXERIL) 10 MG tablet Take 10 mg by mouth. Active tamsulosin (FLOMAX) 0.4 MG Cap Take 1 capsule (0.4 mg total) by mouth daily. 30 capsule 4 Active ondansetron (ZOFRAN-ODT) 4 MG disintegrating tablet Take 1 tablet (4 mg total) by mouth every 8 (eight) hours as needed for Nausea. 20 tablet 4 Active HYDROcodone-acetami nophen (NORCO) 5-325 MG tabletIndications:A cute Pain < 7 Day Supply Take 1 tablet by mouth every 6 (six) hours as needed. Indications: Acute Pain < 7 Day Supply 21 tablet 4 Active Active Problems Problem Noted Date Diagnosed Date Migraine with aura and witho ut status migrainosus, not intractable 10/18/2019 S/P laparoscopic procedure 10/07/2018 Hx of endometriosis 01/30/2018 Dysmenorrhea 01/30/2018 Chronic pelvic pain in female 01/30/2018 Menorrhagia with regular cycle 01/30/2018 Family History Medical History Relation Comments Hypertension Father afib Father Cancer Mother Migraines/Headaches Mother Miscarriages / Stillbirths Mother Cancer Sister Relation Status Comments Father Alive Mother Alive Sister Social History Tobacco Use Types Packs/Day Years Used Date Smoking Tobacco: Never Smokeless Tobacco: Never Tobacco Cessation:Counseling Given: No Alcohol Use Standard Drinks/Week Comments No 0 [...] Sign Reading Time Taken Comments Blood Pressure 101/67 05/17/2024 8:34 PM SCROLL SHEAR OPERATOR Pulse 83 05/17/2024 8:34 PM SCROLL SHEAR OPERATOR Temperature 36.1 C (97 F) 05/17/2024 8:34 PM SCROLL SHEAR OPERATOR Respiratory Rate 16 05/17/2024 8:34 PM SCROLL SHEAR OPERATOR Oxygen Saturation 95% 05/17/2024 8:34 PM SCROLL SHEAR OPERATOR Inhaled Oxygen Concentration - - Weight 70.3 kg (155 lb) 05/17/2024 5:23 PM SCROLL SHEAR OPERATOR Height 152.4 cm (5') 05/17/2024 5:23 PM SCROLL SHEAR OPERATOR Body Mass Index 30.27 05/17/2024 5:23 PM SCROLL SHEAR OPERATOR Plan of Treatment Health Maintenance Due Date Last Done Comments Cervical Cancer Screening Pa p Smear (Age 30 to 64) Every 3 Years 1992 Hepatitis C 2010 DTaP, Tdap and Td Vaccines ( 1 - Tdap) 2011 Hepatitis B Vaccines (1 of 3 - 19+ 3-dose series) 2011 HPV Vaccines (1 - 3-dose SCD M series) 2019 Annual Physical 05/26/2020 05/26/2019 Cervical Cancer Screening Pa p with HPV Testing (Age 30 to 64) Every 5 Years 2022 Cervical Cancer Screening [facility] HPV 2022 COVID-19 Vaccine (3 - 2023-2 5 season) 2024 09/09/2020, 08/19/2020 Meningococcal B Vaccine Aged Out No l onger eligible based on patient's age to complete this topic Meningococcal Vaccine Aged Out No dejuan jermaine eligible based on patient's age to complete this topic Pneumococcal Vaccine: Pediatrics (0 to 5 Years) and At-Risk Patients (6 to 49 Years) Aged Out No longer eligible b ased on patient's age to complete this topic RSV Immunizations Under 20 Months Aged Out No longer eligible b ased on patient's age to complete this topic Insurance [facility] Care Teams Sheather Relationship Specialty Start Date End Date Denene Ko PA PCP - General PHYSICIAN FINE WIRE DRAWER 12/20/21
--- OUTSIDE RECORDS SUMMARY | 2024-12-09 13:43 | XMS_ITS | Referral Summary ---
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
--- OUTSIDE RECORDS SUMMARY | 2024-12-09 13:43 | XMS_ITS | Encounter Summary ---
Author Organization [facility] Address [address] [place] [address] Care Team Providers Care Integration Analyst Name Role Phone Reba Allen MA Primary Care Provider [facility] Herson Caal MD Primary Care Provider Encounter Details Date Type Department Care Team (Late st Contact Info) Description 08/21/2018 [facility] Outpatient Visit [facility] [address] [place] [address] Rosy Patino MD [address] [address] Social History Tobacco Use Types [...] on filedocumented in this encounter Care Teams Integration Analyst Relationship Specialty Start Date End Date Reba Allen MA PCP - General 05/03/16 11/22/20 [place] [address] [place] [address] PCP - General 11/23/20 documented as of this encounter
--- OUTSIDE RECORDS SUMMARY | 2024-12-09 13:43 | XMS_ITS ---
Author Name YENIFER BAIG, PhD, DR. INGRID Lynch Address [address] [facility] [address] [place] [address] Phone [phone] Organization [facility] Care Team Providers Care Eyeglass Lens Cutter Name Role Phone [address] Unavailable [phone] Reason for Referral Not Available Allergies, adverse reactions, alerts Allergen Type Reaction Severity Status Onset Date Amoxicillin-Pot Clavulanate Allergy to s ubstance (disorder) Hives Mild Active 2016-03-04 Levofloxacin Allergy to substance (disorder) Vomiting Mild Active 2021-09-06 MetroNIDAZOLE Allergy to substance (disorder) Diarrhea Mild Active 2019-05-07 History of medication use Medication Class Instructions Start Date End Date Cholecalciferol 125 MCG (500 0 UT) Cap No Data Available 2020-05-27 No Data Available cetirizine (ZyrTEC) 10 mg capsule No Data Available 2012-05-26 No Data Available ALPRAZolam 0.25 mg Tab Take 0.25 mg by m outh 3 (three) times a day as needed 2022-01-05 No Data Available Cyclobenzaprine 10 mg Tab Take 10 mg by mouth 3 (three) times a day as needed 2024-11-07 No Data Available Topiramate 100 mg Tab Take 1 tablet (100 mg total) by mouth 2 (two) times a day 2022-03-08 No Data Available Frova 2.5 mg Tab Take 1 tablet (2.5 m g total) by mouth once as needed for headaches for up to 1 dose May repeat one time after 2 hours if needed. 2022-03-08 No Data Available SUMAtriptan Succinate 100 mg Tab Take 1 tablet (100 mg total) by mouth once as needed for migraine (headache) for up to 1 dose May repeat one time after 2 hours if needed. 2022-03-08 No Data Available predniSONE 10 mg Tab Take 6 tabs (60mg) daily for 2 days, then take 5 tabs (50mg) daily for 2 days. Continue to decrease by 1 tab (10mg) every 2 days until gone. 2022-03-13 No Data Available Aimovig 140 mg/ML Solution Auto-injector Subcutaneous Inject 140 mg under the skin every 30 (thirty) days 2022-08-16 No Data Available Problem List Problem Status Onset Date Resolved Date Synopsis Elevated rheumatoid factor Active 2022-02-26 N/A Elevated rheumatoid factor Social History Sex Female Functional Status No Information Mental Status No Information Assessments Not Available Plan of Care Not Available
--- OUTSIDE RECORDS SUMMARY | 2024-12-09 13:43 | XMS_ITS | Clinical Summary ---
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 Gender Identity Not on file Sexual Orientation [...] 03/08/2022 4:01 PM CDT Body Mass Index 42263.8 03/08/2022 4:01 PM CDT Plan of Treatment Health Maintenance Due Date Last Done Comments Cervical Cancer Screening 1992 Depression Screening 1992 Hepatitis C Screening 1992 DTaP/Tdap/Td Vaccine (1 - Tdap) 2003 Varicella Vaccines (1 of 2 - 13+ 2-dose series) 2005 Hepatitis B Screening 2010 Regular Well Visit/Exam 18-64 2010 Covid-19 Vaccine (3 - 2023-2 5 season) 2024 09/09/2020, 08/19/2020 Influenza Vaccine (#1) 2025 HPV Vaccines Aged Out No longer eligi ble based on patient's age to complete this topic Pneumococcal vaccine <65 Aged Out No longer eligible based on patient's age to complete this topic Insurance [place] Care Teams Soil Engineer Relationship Specialty Start Date End Date Analisa Pleitez PA [address] [place], [place] [id number] PCP - General Family Practice 01/19/22 Peter Guerrier MD [address] [place] [address] Consulting Physician Rheumatology 01/19/22
--- OUTSIDE RECORDS SUMMARY | 2024-12-09 13:43 | XMS_ITS | Encounter Summary ---
Author Organization [facility] Address [address] [place] [id number] Care Team Providers Care Insurance Agents Supervisor Name Role Phone Herson Gupta MD Primary Care Provider [phone] Deneen Ko Primary Care Provider [phone] Encounter Details Date Type Department Care Team (Late st Contact Info) Description 03/09/2021 ciValuet Message Enc [facility] Family & Internal Medicine [facility] [id number] [place] [phone] Herson Gupta MD [address] [place] [id number] RE: Medication Questions Social History Tobacco [...] documented as of this encounter Care Teams Insurance Agents Supervisor Relationship Specialty [place] [address] [place] [address] PCP - General FAMILY PRACTICE 10/17/19 12/19/21 [place] [address] [place] [address] PCP - General PHYSICIAN PASTEURIZING SUPERVISOR 12/20/21 documented as of this encounter
--- NOTE | 2024-12-19 12:05 | WPDHOLTEREM ---
Holter/Event Monitor Holter/Event Monitor Date of procedure: 12/09/24 Holter/Event Procedure: 3-7 Day Holter Monitor Indications: Palpitations Conclusion: 1. 3 days holter monitor on 12/09/24. 2. Underlying rhythm is sinus rhythm. HR range 52-136 bpm; average HR 76 bpm. 3. There are rare premature supraventricular complexes, rare supraventricular couplets, and rare supraventricular triplets. No supraventricular tachycardia. 4. No premature ventricular complexes. No ventricular tachycardia. 5. No significant pauses greater than 3 seconds. 6. Patient reports 5 episodes of symptoms of chest pain, shortness of breath, heart racing which demonstrate sinus rhythm, HR range 75-89 bpm.
== END 2024-12-09 13:35 | disposition home or self-care (01) ==
PROVIDERS: PCP Physician Assistant Medical; Visit Provider Physician Assistant Medical
DX: I49.1 Atrial premature depolarization (principal); R07.9 Chest pain, unspecified; R06.02 Shortness of breath; R00.0 Tachycardia, unspecified; R00.2 Palpitations
CPT/HCPCS: 93242

== ENCOUNTER 2025-01-28 14:59 | Emergency (ER) | payer BC, SELFPAY ==
--- NOTE | ~2025-01-28 | XR_ITS ---
EXAMINATION: XR chest 2V 01/28/2025 16:08 INDICATION: Chest pain PROCEDURE: 2 view chest COMPARISON: No prior studies for comparison. FINDINGS: The lungs are clear. The cardiomediastinal silhouette is within normal limits. There are no pleural effusions. There is no pneumothorax suspected. IMPRESSION: 1: NO ACUTE CARDIOPULMONARY DISEASE. Reviewed, dictated and finalized at location O.
--- NOTE | 2025-01-28 15:00 | ECG_ITS ---
Test Date: 2025-01-28 15:13:27 Measurements Intervals [place] Rate: 85 P: 34 [place]: 110 QRS: 54 QRSD: 81 T: 23 QT: 324 QTc: 385 Interpretive Statements SINUS RHYTHM WITH SHORT [place] INTERVAL NONSPECIFIC T-WAVE ABNORMALITY BORDERLINE ECG Compared to ECG 11/16/2024 13:35:55 NO SIGNIFICANT DIFFERENCE Electronically Signed On 01-28-2025 16:29:22 CDT by Praveen Quintero M.D.
[2025-01-28 15:04] VITALS: BP 110/87; PULSE 96; RESP 16; TEMP 36.6; O2SAT 100
--- NOTE | 2025-01-28 15:12 | ED.CHESTPAIN ---
HPI - Chest Pain General Chief Complaint: Chest Pain <Everardo Wolfe APRN - Last Filed: 01/28/25 15:14> Stated Complaint: CHEST PAIN XTD <Everardo Wolfe APRN - Last Filed: 01/28/25 15:14> Time Seen by Provider: 01/28/25 17:11 <Everardo Wolfe APRN - Last Filed: 01/28/25 15:14> Focused HPI: 34-year-old female presents to the ER complaining of chest pain started today. Patient said symptoms started approximately 1-2 hours ago. Patient reports having pressure in the middle of her chest radiates into her left side up into her left jaw and arm. Patient also reports palpitations. She reports some nausea but denies any vomiting. Patient denies any shortness of breath, fevers, body aches, chills, chest, cough, congestion or other symptoms. Patient has been evaluated outpatient partially for chest pain has had a Holter monitor performed and has a scheduled echo coming up. Patient has not seen a track welder yet. Patient has a family history of AFib. Patient denies any significant past medical history. Patient denies any history of hypertension, diabetes, or smoking. Patient denies taking control. GENERAL: Well-appearing, well-nourished, and in no acute distress. HEAD: Normocephalic, atraumatic. CHEST: Clear to auscultation. ?No respiratory distress. HEART: Regular rate and rhythm.? NEURO: ?Alert and oriented x3. Patient screened in triage and initial orders placed.? ?Additional care and disposition to be based upon?diagnostic testing and treatment. <Everardo Wolfe APRN - Last Filed: 01/28/25 15:14> Related Data Home Medications: Home Medications ?Medication ?Instructions ?Recorded ?Confirmed ?Last Taken ?Type cetirizine 10 mg tablet (Zyrtec) 10 mg PO DAILY PRN 01/05/22 01/23/25 Unknown History erenumab-aooe 70 mg/mL 70 mg subcut MONTHLY 04/20/22 01/23/25 Unknown History subcutaneous auto-injector (Aimovig Autoinjector) frovatriptan 2.5 mg tablet See Rx Instructions PO .COMPLEX 06/25/23 01/23/25 Unknown History ubrogepant 100 mg tablet (Ubrelvy) 100 mg PO ONCE PRN 06/25/23 01/23/25 Unknown History cyclobenzaprine 10 mg tablet 10 mg PO TID PRN muscle spasm 08/18/24 01/23/25 Unknown History magnesium hydroxide 600 mg mg PO 08/18/24 12/01/24 Unknown History chewable tablet propranolol 80 mg capsule,24 80 mg PO DAILY 12/01/24 01/23/25 Unknown History hr,extended release (Inderal LA) omeprazole 40 mg capsule,delayed 40 mg PO DAILY PRN 01/23/25 01/23/25 Unknown History release <Everardo Wolfe APRN - Last Filed: 01/28/25 15:14> Allergies/Adverse Reactions: Allergies Allergy/AdvReac Type Severity Reaction Status Date / Time duloxetine (From Cymbalta) Allergy Severe Unknown Verified 01/28/25 15:00 amoxicillin (From Augmentin) Allergy Intermediate Rash Verified 01/28/25 15:00 clavulanic acid (From Allergy Intermediate Rash Verified 01/28/25 15:00 Augmentin) Latex, Natural Rubber Allergy Mild tongue Verified 01/28/25 15:00 swollen levofloxacin Allergy rash and Verified 01/28/25 15:00 emesis metronidazole AdvReac Intermediate Fever Verified 01/28/25 15:00 <Everardo Wolfe, KIMBERLEY - Last Filed: 01/28/25 15:14> Review of Systems Review of Systems: All systems reviewed & are unremarkable except as noted in HPI and below <Rox Arambula PA-C - Last Filed: 01/28/25 19:14> [facility] Past Medical History Medical History: Medical History (Updated 01/28/25 @ 19:09 by Rox Arambula PA-C) Testosterone deficiency High glucose Heavy menses Anxiety Back pain GERD (gastroesophageal reflux disease) IBS (irritable bowel syndrome) Migraine <Everardo Wolfe APRN - Last Filed: 01/28/25 15:14> Surgical History Surgical History: Surgical History History of exploratory laparotomy endometrial tissue removed- 09/2018 History of laparoscopic appendectomy Hx of tonsillectomy <Everardo Wolfe APRN - Last Filed: 01/28/25 15:14> Family History Family History: Family History (Updated 01/26/25 @ 16:09 by SARAH Olvera) Mother Breast cancer Father Atrial fibrillation Sibling H/O total thyroidectomy Thyroid cancer Surgery and treatment in 2006 <Everardo Wolfe, LIVESTOCK INSPECTOR - Last Filed: 01/28/25 15:14> Social History Social History: Social History Social History: 12/01/24 very confident with medical forms Smoking status: Never smoker Second hand tobacco smoke exposure: No Alcohol intake: never Substance use: never Substance use type: does not use Do You Feel Safe in your Home?: Yes Lack of Transportation: No Lack of Food: Never True Current Housing: I Have Housing Concerned About Future Housing: No Difficulty Paying Gas/Electric Bills: No Difficulty Paying for Meds: No Currently Unemployed: No Education: Bachelor's Degree Difficulty w/ Childcare or Family Care: No Living arrangements: with family Occupation/Education: occupation Gender identity (if verbalized by the patient): Female Sexual Orientation (if Verbalized by the Patient): Straight or Heterosexual <Everardo Wolfe, LIVESTOCK INSPECTOR - Last Filed: 01/28/25 15:14> Exam Narrative: GENERAL: Well-appearing, well-nourished, and in no acute distress. HEAD: Normocephalic, atraumatic. EYES: EOMI. CHEST: Clear to auscultation. No respiratory distress. No wheezes rales or rhonchi HEART: Regular rate and rhythm. No murmur heard. Normal peripheral pulses. EXTREMITIES: Normal range of motion. No edema. SKIN: Warm, dry, no rash. NEURO: No focal deficits. Alert and oriented x3. PSYCH: Normal mood and affect <Rox Arambula PA-C - Last Filed: 01/28/25 19:14> Course Course Emergency Course: Patient updated on her workup and agrees with plan of care <Rox Arambula PA-C - Last Filed: 01/28/25 19:14> Vital Signs Vital signs: Vital Signs Temperature 97.8 F 01/28/25 15:04 Pulse Rate 96 01/28/25 15:04 Respiratory Rate 16 01/28/25 15:04 Blood Pressure 110/87 01/28/25 15:04 Pulse Oximetry 100 01/28/25 15:04 Oxygen Delivery Room Air 01/28/25 15:04 Temperature 97.8 F 01/28/25 15:04 Pulse Rate 91 01/28/25 16:12 Respiratory Rate 16 01/28/25 16:12 Blood Pressure 114/79 01/28/25 16:12 Pulse Oximetry 97 01/28/25 16:12 Oxygen Delivery Room Air 01/28/25 15:36 <Everardo Wolfe APRN - Last Filed: 01/28/25 15:14> Vital Signs Temperature 97.8 F 01/28/25 15:04 Pulse Rate 96 01/28/25 15:04 Respiratory Rate 16 01/28/25 15:04 Blood Pressure 110/87 01/28/25 15:04 Pulse Oximetry 100 01/28/25 15:04 Oxygen Delivery Room Air 01/28/25 15:04 Temperature 97.8 F 01/28/25 15:04 Pulse Rate 91 01/28/25 16:12 Respiratory Rate 16 01/28/25 16:12 Blood Pressure 114/79 01/28/25 16:12 Pulse Oximetry 97 01/28/25 16:12 Oxygen Delivery Room Air 01/28/25 15:36 <Rox Arambula PA-C - Last Filed: 01/28/25 19:14> MDM - Chest Pain MDM Narrative Medical decision making narrative: Patient presents the emergency department for chest pain. Reports this has been ongoing intermittently over the last several months. She has worn a Holter monitor for evaluation of this. Her vitals are stable. CBC metabolic panel without concerning findings. EKG without acute ST changes, her baseline and 3 hour troponin are negative. D-dimer is not elevated. Chest x-ray without acute cardiopulmonary abnormality. Instructed to have continued follow-up with her PCP. She was given warnings to return to the ER <Rox Arambula PA-C - Last Filed: 01/28/25 19:14> Differential Diagnosis Differential diagnosis: Likely stable angina, atypical chest pain, costochondritis and other (PE) <Rox Arambula PA-C - Last Filed: 01/28/25 19:14> Lab Data Attestation: I reviewed the patient's lab results. <Rox Arambula PA-C - Last Filed: 01/28/25 19:14> Result diagrams: 01/28/25 15:29 01/28/25 15:29 <Everardo Wolfe APRN - Last Filed: 01/28/25 15:14> Labs: Lab Results 01/28/25 01/28/25 Range/Units 15:29 17:57 WBC 10.0 (4.5-10.0) K/mm3 RBC 4.84 (4.2-5.4) M/mm3 Hgb 13.9 (12.0-15.0) g/dL Hct 42.5 (37.0-47.0) % MCV 87.8 (80-100) fl MCH 28.7 (26-34) pg MCHC 32.7 (32-36) g/dl RDW 11.9 (11.5-14.5) % Plt Count 330 (150-375) k/mm3 MPV 10.1 (7.4-10.4) fl Immature Gran % (Auto) 0.3 (0-0.5) % Neut % (Auto) 62.6 (45.5-73.1) % Lymph % (Auto) 31.3 (18.3-44.2) % [place] % (Auto) 4.6 (2.6-8.5) % Eos % (Auto) 0.7 (0-4.4) % Baso % (Auto) 0.5 (0.2-1.2) % Lymph # (Auto) 3.12 (0.9-3.2) K/mm3 [place] # (Auto) 0.5 (0.1-0.6) K/mm3 Eos # (Auto) 0.1 (0-0.3) K/mm3 Baso # (Auto) 0.1 (0.0-0.1) K/mm3 Abs Immat Gran (auto) 0.03 (0.00-0.031) K/mm3 Absolute Neuts (auto) 6.3 (1.3-6.7) K/mm3 Absolute Nucleated RBC 0.000 (0.0-0.012) K/mm3 Nucleated RBC % 0.0 (0.0-0.2) % PT 13.4 (11.1-14.7) Seconds INR 1.0 APTT 25.7 (22.3-36.8) Seconds D-Dimer < 0.27 (<0.48) ug/mL Sodium 138 (137-145) mmol/L Potassium 4.1 (3.4-5.0) mmol/L Chloride 104 (98-107) mmol/L Carbon Dioxide 24 (22-30) mmol/L Anion Gap 10 (4-12) mmol/L BUN 20 H (7-17) mg/dL Creatinine 0.74 (0.7-1.0) mg/dL Estim Creat Clear Calc 85 ml/min Estimated GFR > 60 (59 - ) Glucose 96 (65-110) mg/dL Calcium 9.7 (8.4-10.2) mg/dL Total Bilirubin 0.6 (0.2-1.3) mg/dL AST 21 (14-36) U/L ALT 17 (6-35) U/L Alkaline Phosphatase 68 (38-126) U/L Troponin I < 0.012 < 0.012 (0.000-0.034) ng/mL Total Protein 8.1 (6.3-8.2) g/dL Albumin 4.6 (3.5-5.1) g/dL Lipase 59 (23-300) U/L <Evearrdo Wolfe, LIVESTOCK INSPECTOR - Last Filed: 01/28/25 15:14> Lab Results 01/28/25 01/28/25 Range/Units 15:29 17:57 WBC 10.0 (4.5-10.0) K/mm3 RBC 4.84 (4.2-5.4) M/mm3 Hgb 13.9 (12.0-15.0) g/dL Hct 42.5 (37.0-47.0) % MCV 87.8 (80-100) fl MCH 28.7 (26-34) pg MCHC 32.7 (32-36) g/dl RDW 11.9 (11.5-14.5) % Plt Count 330 (150-375) k/mm3 MPV 10.1 (7.4-10.4) fl Immature Gran % (Auto) 0.3 (0-0.5) % Neut % (Auto) 62.6 (45.5-73.1) % Lymph % (Auto) 31.3 (18.3-44.2) % [place] % (Auto) 4.6 (2.6-8.5) % Eos % (Auto) 0.7 (0-4.4) % Baso % (Auto) 0.5 (0.2-1.2) % Lymph # (Auto) 3.12 (0.9-3.2) K/mm3 [place] # (Auto) 0.5 (0.1-0.6) K/mm3 Eos # (Auto) 0.1 (0-0.3) K/mm3 Baso # (Auto) 0.1 (0.0-0.1) K/mm3 Abs Immat Gran (auto) 0.03 (0.00-0.031) K/mm3 Absolute Neuts (auto) 6.3 (1.3-6.7) K/mm3 Absolute Nucleated RBC 0.000 (0.0-0.012) K/mm3 Nucleated RBC % 0.0 (0.0-0.2) % PT 13.4 (11.1-14.7) Seconds INR 1.0 APTT 25.7 (22.3-36.8) Seconds D-Dimer < 0.27 (<0.48) ug/mL Sodium 138 (137-145) mmol/L Potassium 4.1 (3.4-5.0) mmol/L Chloride 104 (98-107) mmol/L Carbon Dioxide 24 (22-30) mmol/L Anion Gap 10 (4-12) mmol/L BUN 20 H (7-17) mg/dL Creatinine 0.74 (0.7-1.0) mg/dL Estim Creat Clear Calc 85 ml/min Estimated GFR > 60 (59 - ) Glucose 96 (65-110) mg/dL Calcium 9.7 (8.4-10.2) mg/dL Total Bilirubin 0.6 (0.2-1.3) mg/dL AST 21 (14-36) U/L ALT 17 (6-35) U/L Alkaline Phosphatase 68 (38-126) U/L Troponin I < 0.012 < 0.012 (0.000-0.034) ng/mL Total Protein 8.1 (6.3-8.2) g/dL Albumin 4.6 (3.5-5.1) g/dL Lipase 59 (23-300) U/L <Rox Arambula PA-C - Last Filed: 01/28/25 19:14> Imaging Data Radiologist's impression: ITS Impressions Chest X-Ray 01/28/25 16:09 IMPRESSION: 1: NO ACUTE CARDIOPULMONARY DISEASE. <LOCO [place]ley Last Filed: 01/28/25 19:14> ECG Data EKG #1: ECG completion date: 01/28/25 <Rox Arambula PA-C - Last Filed: 01/28/25 19:14> EKG Interpretation: normal rate, sinus rhythm, no ST changes, normal QT and no acute changes (compared to EKG 10/2024) <Rox Arambula PA-C - Last Filed: 01/28/25 19:14> Critical Care Time Critical Care Time Critical Care Time: No <Rox Arambula PA-C - Last Filed: 01/28/25 19:14> Discharge Plan Discharge Clinical Impression: Chest pain Qualifiers: Chest pain type: unspecified Qualified Code(s): R07.9 - Chest pain, unspecified <Everardo Wolfe APRN - Last Filed: 01/28/25 15:14> Patient Disposition: Home <Everardo Wolfe APRN - Last Filed: 01/28/25 15:14> Condition: Stable <Everardo Wolfe APRN - Last Filed: 01/28/25 15:14> Instructions: Chest Pain (ED) <Everardo Wolfe APRN - Last Filed: 01/28/25 15:14> Additional Instructions: Return to the emergency department if you experience fever, worsening chest pain, difficulty breathing, or any other symptoms that are concerning to you. Follow up with your primary care doctor <Everardo Wolfe APRN - Last Filed: 01/28/25 15:14> Patient Language: [place] <Everardo Wolfe APRN - Last Filed: 01/28/25 15:14> Prescriptions: No Action cyclobenzaprine 10 mg tablet 10 mg PO TID PRN (Reason: muscle spasm) magnesium hydroxide 600 mg tablet,chewable PO propranolol [Inderal LA] 80 mg capsule,extended release 24 hr 80 mg PO DAILY omeprazole 40 mg capsule,delayed release(DR/EC) 40 mg PO DAILY PRN cetirizine [Zyrtec] 10 mg tablet 10 mg PO DAILY PRN Aimovig Autoinjector 70 mg/mL auto-injector 70 mg subcut MONTHLY frovatriptan 2.5 mg tablet See Rx Instructions PO .COMPLEX Rx Instructions: take 1 tab at onset of headache; if no relief, may repeat 1 tab after at least 2 hrs; max = 2 tabs/24 hrs PO Ubrelvy 100 mg tablet 100 mg PO ONCE PRN Rx Instructions: as a single dose; may repeat once in >=2 hours after first dose if needed sumatriptan succinate 100 mg tablet See Rx Instructions PO .COMPLEX Qty: 10 0RF Rx Instructions: take 1 tab at onset of headache; if no relief, may repeat 1 tab after at least 2 hrs; max = 2 tabs/24 hrs PO alprazolam 0.25 mg tablet 0.25 mg PO TID PRN (Reason: anxiety) Qty: 30 2RF <Everardo Wolfe APRN - Last Filed: 01/28/25 15:14> Follow-up/Referrals: Savannah Boland, MAINTENANCE AND OPERATIONS SUPERVISOR-C [Primary Care Provider, Internal Medicine] <Everardo Wolfe APRN - Last Filed: 01/28/25 15:14> Quality HEART score for chest pain patients History: slightly suspicious <Rox Arambula PA-C - Last Filed: 01/28/25 19:14> ECG: normal <Rox Arambula PA-C - Last Filed: 01/28/25 19:14> Age: < or = to 45 years <Rox Arambula PA-C - Last Filed: 01/28/25 19:14> Risk factors: no risk factors known <Rox Arambula PA-C - Last Filed: 01/28/25 19:14> Troponin: < or = to 1x normal limit <Rox Arambula PA-C - Last Filed: 01/28/25 19:14> Heart score: 0 <Rox Arambula PA-C - Last Filed: 01/28/25 19:14>
--- OUTSIDE RECORDS SUMMARY | 2025-01-28 15:25 | XMS_ITS ---
Author Name YENIFER BAIG, PhD, DR. INGRID Lynch Address [address] [facility] [address] [place] [address] Phone [phone] Organization [facility] Care Team Providers Care Director Of Consulting Services Name Role Phone [address]GRID ST[address] Unavailable [phone] Analisa Kellogg Unavailable [phone] Reason for Referral Not Available Allergies, adverse reactions, alerts Allergen Type Reaction Severity Status Onset Date Amoxicillin-Pot Clavulanate Allergy to s ubstance (disorder) Hives Mild Active 2016-03-04 Levofloxacin Allergy to substance (disorder) Vomiting Mild Active 2021-09-06 MetroNIDAZOLE Allergy to substance (disorder) Diarrhea Mild Active 2019-05-07 History of medication use Medication Class Instructions Start Date End Date ALPRAZolam 0.25 mg Tab Take 0.25 mg by m outh 3 (three) times a day as needed 2022-01-05 No Data Available Cyclobenzaprine 10 mg Tab Take 10 mg by mouth 3 (three) times a day as needed 2024-11-07 No Data Available Frova 2.5 mg Tab [...] hours if needed. 2022-03-08 No Data Available Aimovig 140 mg/ML Solution Auto-injector Subcutaneous Inject 140 mg under the skin every 30 (thirty) days 2022-08-16 No Data Available Propranolol ER 80 mg Cap ER 24hr TAKE 1 CAPSULE BY MOUTH EVERY DAY 2024-04-03 No Data Available Magnesium Oxide 400 mg Tab 1 tablet oral ly daily with food 2024-12-24 No Data Available B-2-400 400 mg Cap 1 capsule orally derrick ly with food 2024-12-24 No Data Available Vitamin D3 125 MCG (5000 UT) Cap 1 capsule orally daily 2024-12-24 No Data Available [place]-3 Fish Oil 1200 mg Cap 1 capsule o rally 3 times per day 2024-12-24 No Data Available [facility] Probiotic Cap No Data Available 2024-12-24 No Da ta Available Ubrelvy 100 mg Tab 1 tablet orally tessy y as needed, may take second dose at least 2 hours after first dose up to 2 tablets per day as needed 2024-12-24 No Data Available predniSONE 10 mg Tab 60mg PO qAM for 2 d ays, then 50mg PO qAM for 2 days, then 40mg PO qAM for 2 days, then 30mg PO qAM for 2 days, then 20mg PO qAM for 2 days, then 10mg PO qAM for 2 days, then discontinue. 2024-12-24 No Data Available Problem List Problem Status Onset Date Resolved Date Synopsis Elevated rheumatoid factor Active 2022-02-26 N/A Elevated rheumatoid factor Encounters Encounters Type Facility Date of Service Diagnosis/Co mplaint ROV 40-54 min [facility] 12/24/2024 Migraine w ith aura, not intractable, without status migrainosus ROV 40-54 min [facility] 12/24/2024 Migraine w ith aura, not intractable, without status migrainosus Vital Signs Date of Collection Vitals 2024-12-24 12:00:00 Height - 152.4 cmWei ght - 72.12 kgBody Mass Index (BMI) - 31.05 kg/m2BP Diastolic - 67.0 mm[Hg]BP Systolic - 140.0 mm[Hg]Heart Rate - 68.0 /minO2 % BldC Oximetry - 96.0 % Social History Social History Social History Observation Description Effec tive Time Current Smoking Status Never smoker 2025-01-19 0 Sex Female History of Procedures Procedures Service Procedure code Service date Servicing provider Phone# ROV 40-54 min [id number] 2024-12-24 No Data Available No D asmantha Available Each additional 1-15 mins [id number] 2024-12-24 No Data Available No Data Availa ble Functional Status No Information Mental Status No Information Assessments Date of Service Assessments 2024-12-24 12:00:00 Migraine with auraIn strs printed & given to patient Plan of Care Date of Service Plans 2024-12-24 12:00:00 8-10 month74 minutes were spent today on activities documented in this note. I provided education about the above assessment and plan. I think they have a good understanding of what we discussed. All questions were answered in detail.-Continue Aimovig 140mg monthly. -Continue Inderal LA 80mg nightly-In the future we could add zonisamide, low dose topamax, lamictal, depakote-Continue Riboflavin 50-100mg daily-Continue Magnesium 200-400mg nightly-Continue Nerivio device-Continue Ubrelvy 100mg as needed for headaches that occur in daytime hours-Continue sumatriptan 100mg. Take this with ibuprofen and Benadryl for headaches occurring in night time hours.-Continue to take frovatriptan at the beginning of menstruation and ovulation. Hopefully insurance will cover 2 pills per month. -Prednisone dose pack prescribed x2 for next headaches that lasts 4+ days. -Consider trial of occipital nerve blocks in the future-Continue Aimovig 140mg monthly. -Continue Inderal LA 80mg nightly-In the future we could add zonisamide, low dose topamax, lamictal, depakote-Continue Riboflavin 50-100mg daily-Continue Magnesium 200-400mg nightly-Continue Nerivio device, we will renew this script (message and email sent to Theodora)-Continue Ubrelvy 100mg as needed for headaches that occur in daytime hours-Continue sumatriptan 100mg. Take this with ibuprofen and Benadryl for headaches occurring in night time hours.-Continue to take frovatriptan at the beginning of menstruation and ovulation. Insurance is covering 2 pills per month. -Prednisone dose pack prescribed x2 for next headaches that lasts 4+ days. -Consider trial of occipital nerve blocks in the future Goals Date Goal 2024-12-24 Migraine 2024-12-24 -Current abortives/p rophylactics: Aimovig 140mg, Inderel LA, Nerivio device, magnesium, riboflavin, Ubrelvy, sumatriptan 100mg, frovatriptan 2.5mg (at the beginning of menstruation and ovulation), ibuprofen, prednisone (effective for status migrainosus),-Previously tried abortives/prophylactics: propranolol, duloxetine (fatigue, zombie), nurtec (less effective than Ubrelvy), imitrex (taken daily in middle school), rizatriptan/maxalt, tramadol (felt loopy), migraine cocktail (effective), amitriptyline (felt weird), Emgality (ineffective), [place] patches which contain Coenzyme Q10, Butterbur, topamax (may have helped at 25-50mg BID, but possible side effects at 100 BID) 2024-12-24 Multiple other sympt oms: we discussed various causes and I encouraged her to have B12 rechecked in 2 months and make sure that TSH and basic labs are already completed. May benefit from flat locker referral if presyncope returns. Staying well hydrated.
--- OUTSIDE RECORDS SUMMARY | 2025-01-28 15:26 | XMS_ITS | Clinical Summary ---
Author Organization [facility] Address [address] [place] [address] Care Team Providers Care Senior Accounts Payable Specialist Name Role Phone Analisa Pleitez Primary Care Provider [phone] Peter Guerrier MD Unavailable [phone] Allergies Active Allergy Reactions Criticality Noted Date [...] Sooner if needed. Seen with Dr. Guerrier. Encounters Date Type Department Care Team Description 12/01/2024 Orders Only [facility] Scanning, Provider from Last 3 Months Surgical History Surgery Date Site/Laterality Comments APPENDECTOMY [...] on file Legal Sex Female 11:04 AM SEXOLOGIST Gender Identity Not on file Sexual Orientation [...] 03/08/2022 4:01 PM CDT Body Mass Index 08173.8 03/08/2022 4:01 PM CDT Plan of Treatment Health Maintenance Due Date Last Done Comments Cervical Cancer Screening 1992 Depression Screening 1992 Hepatitis C Screening 1992 DTaP/Tdap/Td Vaccine (1 - Tdap) 2003 Varicella Vaccines (1 of 2 - 13+ 2-dose series) 2005 Hepatitis B Screening 2010 Regular Well Visit/Exam 18-64 2010 HPV Vaccines (1 - 3-dose SCD M series) 2019 Covid-19 Vaccine (3 - 2023-2 5 season) 2024 09/09/2020, 08/19/2020 Influenza Vaccine (#1) 2025 Pneumococcal vaccine <65 Aged Out No longer eligible based on patient's age to complete this topic Procedures Procedure Name Priority Date/Time Associated Diagnosis Comments SCAN - LABS 12/01/2024 from Last 3 Months Results * SCAN - LABS (12/01/2024) Provider Scanning Final Result from Last 3 Months [place] Care Teams Senior Accounts Payable Specialist Relationship Specialty Start Date End Date Analisa Pleitez PA [address] [place] [id number] PCP - General Family Practice 01/19/22 Peter Guerrier MD [address] [place] [address] Consulting Physician Rheumatology 01/19/22
--- OUTSIDE RECORDS SUMMARY | 2025-01-28 15:26 | XMS_ITS | Encounter Summary ---
Author Organization [facility] Health Address [address] [place] [address] Care Team Providers Care Family Literacy Coordinator Name Role Phone Reba Allen MA Primary Care Provider [facility] Herson Caal MD Primary Care Provider Encounter Details Date Type Department Care Team (Late st Contact Info) Description 08/21/2018 [facility] Outpatient Visit [facility] [address] [place] [address] Rosy Patino MD [address] [phone] Social History Tobacco Use Types [...] on filedocumented in this encounter Care Teams Family Literacy Coordinator Relationship Specialty Start Date End Date Reba Allen MA PCP - General 05/03/16 11/22/20 [place] [address] [place] [address] PCP - General 11/23/20 documented as of this encounter
--- OUTSIDE RECORDS SUMMARY | 2025-01-28 15:26 | XMS_ITS | Clinical Summary ---
Author Organization [facility] Address Formerly [facility], [id number] [place] [address] Care Team Providers Care Public Health Training Assistant Name Role Phone Deneen Ko Primary Care Provider [phone] Allergies Active Allergy Reactions Criticality Noted Date Comments Amoxicillin-Pot Clavulanate Hives,Rash Medium 03/04/20 16 Metronidazole Rash,Vomiting Low 05/07/2019 Medications Prenat-Fe Slrvbvzk-KC-Wiqhc 3 (ONE-A-DAY WOMENS 1 OR) 0 Active [...] Comments Blood Pressure 101/67 05/17/2024 8:34 PM QUALITY ASSURANCE COACH Pulse 83 05/17/2024 8:34 PM QUALITY ASSURANCE COACH Temperature 36.1 C (97 F) 05/17/2024 8:34 PM QUALITY ASSURANCE COACH Respiratory Rate 16 05/17/2024 8:34 PM QUALITY ASSURANCE COACH Oxygen Saturation 95% 05/17/2024 8:34 PM QUALITY ASSURANCE COACH Inhaled Oxygen Concentration - - Weight 70.3 kg (155 lb) 05/17/2024 5:23 PM QUALITY ASSURANCE COACH Height 152.4 cm (5') 05/17/2024 5:23 PM QUALITY ASSURANCE COACH Body Mass Index 30.27 05/17/2024 5:23 PM QUALITY ASSURANCE COACH Plan of Treatment Health Maintenance Due Date [...] Every 5 Years 2022 Cervical Cancer Screening [facility] HPV 2022 COVID-19 Vaccine (3 - 2024-2 6 season) 2025 09/09/2020, 08/19/2020 Meningococcal B Vaccine Aged Out [...] age to complete this topic Insurance [facility] Care Teams Public Health Training Assistant Relationship Specialty Start Date End Date Deneen Ko PA PCP - General PHYSICIAN SMALL ANIMAL VETERINARIAN 12/20/21
--- OUTSIDE RECORDS SUMMARY | 2025-01-28 15:26 | XMS_ITS | Clinical Summary ---
Author Organization [facility] Address [address] [place] [address] Care Team Providers Care Hydraulic Operator Name Role Phone Omkar Carmen MD Primary Care Provider [phone] Allergies Active Allergy Reactions Criticality Noted Date [...] tablet Take 10 mg by mouth. Active Neriv[employer] Digital Katja, migraine, Misc USE ONE 45 MINUTE TREATMENT EVERY OTHER DAY FOR PREVENTION OR AT ONSET OF MIGRAINE 08/08/19 24 Active Magnesium 200 mg Tablet Active SEMAGLUTIDE SUBCUT Active Aimovig Autoinjector 140 mg/mL Auto-Injector Inject 1 mL (140 mg) by subcutaneous injection every 30 days. 1 mL 04/03/20 24 Active propranoloL (Inderal LA) 80 [...] 24-hour period is 200 mg 10 Tablet 04/03/20 Active predniSONE 10 mg Tablets, Dose Pack Take 1 Tablet (10 mg) by mouth see administration instructions. 42 Tablet 1 04/09/20 Active Active Problems Problem Noted Date Diagnosed Date Migraine without aura and wi thout status migrainosus, not intractable 09/14/2022 Encounters Date Type Department Care Team Description 12/24/2024 External Device Data [facility] ABSTRACTION Provider, Abstract 12/23/2024 External Device Data [facility] ABSTRACTION Provider, Abstract 12/03/2024 External Device Data [facility] ABSTRACTION Provider, Abstract 12/03/2024 External Device Data [facility] ABSTRACTION Provider, Abstract 11/18/2024 External Device Data [facility] ABSTRACTION Provider, Abstract 10/30/[address] [facility] [address] [place] [address] [place] [phone] Ramin Wilson MD from Last 3 Months Social History Tobacco [...] Comments Blood Pressure 110/70 04/03/2024 1:19 PM HIGH SCHOOL CHEMISTRY TEACHER Pulse 74 04/03/2024 1:19 PM HIGH SCHOOL CHEMISTRY TEACHER Temperature - - Respiratory Rate 16 03/19/2023 2:50 PM CDT Oxygen Saturation 99% 04/03/2024 1:19 PM HIGH SCHOOL CHEMISTRY TEACHER Inhaled Oxygen Concentration - - Weight 72.4 kg (159 lb 9.6 oz) 04/03/2024 1:19 P M HIGH SCHOOL CHEMISTRY TEACHER Height 152.4 cm (5') 04/03/2024 1:19 PM HIGH SCHOOL CHEMISTRY TEACHER Body Mass Index 31.17 04/03/2024 1:19 PM HIGH SCHOOL CHEMISTRY TEACHER Plan of Treatment Health Maintenance Due Date Last Done Comments DTAP/TDAP/TD VACCINES (1 - Tdap) 2011 HEPATITIS B VACCINES (1 of 3 - 19+ 3-dose series) 05/22 HPV/Cotest (21-29) 2013 HPV VACCINES (1 - 3-dose SCDM series) 2019 CERVICAL CANCER SCREENING 2022 HPV/Cotest (30-65) 2022 PAP SMEAR 2022 INFLUENZA VACCINE (#1) 2024 Insurance [facility] [employer] ACCESS CHOICE Care Teams Hydraulic Operator Relationship Specialty Start Date End Date Omkar Carmen MD [address] [place] [phone] PCP - General Family Practice 09/11/22
--- OUTSIDE RECORDS SUMMARY | 2025-01-28 15:26 | XMS_ITS | Clinical Summary ---
Author Organization [facility] Address [address] [facility] [place] [address] Care Team Providers Care Volunteer Services Supervisor Name Role Phone Herson Gupta MD Primary Care Provider Source Comments [facility],non-owned Affiliates and Associated Physician Practices is amultiple site organization consisting of ambulatory clinics and hospital sitesin [place], [place], [place] and [place]. This disclosure is being madepursuant to the Care Everywhere program and may not contain all information available regarding this patient. Last updated 18.[facility] Allergies Active Allergy Reactions Criticality Noted Date [...] VACCINE (1 - 3-dose SCDM series) 2019 DEPRESSION SCREENING 05/21/2024 COVID-19 VACCINE ( - 2023-2 5 season) 2025 INFLUENZA VACCINE (#1) 2025 ZOSTER VACCINE (1 [...] (NAIC) Group ID:[id number] Type:PPO Address: [address] Member Subscriber Plan / Payer (Ef fective 2018-Present) Name:Susana Arnold Relation to Subscriber:Self Name:Susana Arnold Jr Payer ID:[id number] (NAIC) Type:O Address: [place] [id number] [place] [phone] [facility] Member Subscriber Plan / Payer (Ef fective 2018-Present) Name:Susana Arnold Jr Relation to Subscriber:Self Name:SUSANA ARNOLD Payer ID:[id number] (NAIC) Type:O Address: [address] CARE Member Subscriber Plan / Payer (Ef fective 2018-Present) Name:Susana Arnold Jr Relation to Subscriber:Self Name:SUSANA ARNOLD Payer ID:[id number] (NAIC) Type:Zhilian ZhaopinO Address: [address] CARE Member Subscriber Plan / Payer (Ef fective 2018-Present) Name:Susana Arnold Jr Relation to Subscriber:Self Name:SUSANA ARNOLD Payer ID:[id number] (NAIC) Type:O Address: [address] CARE Member Subscriber Plan / Payer (Ef fective 2018-Present) Name:Susana Arnold Jr Relation to Subscriber:Self Name:SUSANA ARNOLD Payer ID:[id number] (NAIC) Type:Zhilian ZhaopinO Address: [address] CARE Member Subscriber Plan / Payer (Ef fective 2018-Present) Name:Susana Arnold Relation to Subscriber:Self Name:SUSANA ARNOLD A Payer ID:[id number] (NAIC) Type:Zhilian ZhaopinO Address: [address] [facility] Member Subscriber Plan / Payer (Ef fective 2018-Present) Name:Susana Arnold Jr Relation to Subscriber:Self Name:SUSANA ARNOLD Jr Payer ID:[id number] (NA) Type:Zhilian ZhaopinO Address: [address] [facility] Member Subscriber Plan / Payer (Ef fective 2018-Present) Name:Clayton Susana Norris Relation to Subscriber:Self Name:CLAYTONSUSANA Payer ID:[id number] ([facility]) Type:Zhilian ZhaopinO Address: [address] CARE Member Subscriber Plan / Payer (Ef fective 2018-Present) Name:Clayton Susana Jr Relation to Subscriber:Self Name:SUSANA ARNOLD Jr Payer ID:[id number] ([facility]) Type:HMO Address: [address] CARE Member Subscriber Plan / Payer (Ef fective 2018-Present) Name:Susana Arnold Relation to Subscriber:Self Name:SUSANA ARNOLD Jr Payer ID:[id number] (NAIC) Type:HMO Address: [address] [facility] Member Subscriber Plan / Payer (Ef fective 2018-) Name:Susana Arnold Relation to Subscriber:Self Name:SUSANA ARNOLD Payer ID:[id number] (NAIC) Type:O Address: [address] [facility] Member Subscriber Plan / Payer (Ef fective 2018-Present) Name:Susana Arnold Relation to Subscriber:Self Name:SUSANA ARNOLD Payer ID:[id number] (NAIC) Type:[employer] Address: [address] Member Subscriber Plan / Payer ( fective 2018-) Name:Susana Arnold Relation to Subscriber:Self Name:SUSANA ARNOLD Payer ID:[id number] (NAIC) Type:Zhilian ZhaopinO Address: [address] CARE Member Subscriber Plan / Payer ( fective 2018-) Name:Susana Arnold Relation to Subscriber:Self Name:SUSANA ARNOLD Payer ID:[id number] (NAIC) Type:Zhilian ZhaopinO Address: [address] CARE Member Subscriber Plan / Payer ( fective 2018-Present) Name:Susaan Arnold Relation to Subscriber:Self Name:SUSANA ARNOLD Payer ID:[id number] (NAIC) Type:HMO Address: [address] [facility] Member Subscriber Plan / Payer (Ef fective 2018-Present) Name:Susana Arnold Jr Relation to Subscriber:Self Name:SUSANA ARNOLD Jr Payer ID:[id number] (NAIC) Type:Zhilian ZhaopinO Address: [address] [facility] Member Subscriber Plan / Payer (Ef fective 2018-Present) Name:ClaytonSusana Relation to Subscriber:Self Name:CLAYTONSUSANA Payer ID:[id number] (NAIC) Type:Zhilian ZhaopinO Address: [address] CARE Member Subscriber Plan / Payer (Ef fective 2018-Present) Name:ClaytonPedroSusana Jr Relation to Subscriber:Self Name:SUSANA ARNOLD Jr Payer ID:[id number] (NAIC) Type:HMO Address: [address] [facility] Member Subscriber Plan / Payer (Ef fective 2018-Present) Name:EnterpriseSusana hoang Relation to Subscriber:Self Name:SUSANA ARNOLD Jr Payer ID:[id number] (NAIC) Type:HMO Address: [address] [facility] Member Subscriber Plan / Payer (Ef fective 2018-Present) Name:Susana Arnold Relation to Subscriber:Self Name:SUSANA ARNOLD Payer ID:[id number] (NAIC) Type:O Address: [address] [facility] Member Subscriber Plan / Payer ( fective 2018-) Name:Susana Arnold Relation to Subscriber:Self Name:SUSANA ARNOLD Payer ID:[id number] (NAIC) Type:O Address: [address] CARE Member [facility]scriber [facility] Name:Susana Arnold Relation to Subscriber:Self Name:SUSANA ARNOLD Payer ID:[id number] (NAIC) Type:O Address: [address] CARE Member Subscriber Plan / [facility] Name:Susana Arnold Relation to Subscriber:Self Name:SUSANA ARNOLD Payer ID:[id number] (NAIC) Type:O Address: [address] CARE Member Subscriber Plan / Payer ( fective 2018-) Name:Susana Arnold Relation to Subscriber:Self Name:SUSANA ARNOLD Payer ID:[id number] (NAIC) Type:HMO Address: [address] [facility] Member Subscriber Plan / Payer (Ef fective 2018-) Name:Clayton Susana Jr Relation to Subscriber:Self Name:SUSANA ARNOLD Jr Payer ID:[id number] (NAIC) Type:Zhilian ZhaopinO Address: [address] [facility] Member Subscriber Plan / Payer (Ef fective 2018-) Name:Susana Arnold Relation to Subscriber:Self Name:CLAYTONSUSANA Payer ID:[id number] (NAIC) Type:Zhilian ZhaopinO Address: [address] CARE Member Subscriber Plan / Payer (Ef fective 2018-) Name:Susana Arnold Relation to Subscriber:Self Name:SUSANA ARNOLD Jr Payer ID:[id number] (NAIC) Type:Zhilian ZhaopinO Address: [address] [facility] Member Subscriber Plan / Payer (Ef fective 2018-) Name:Susana Arnold Relation to Subscriber:Self Name:SUSANA ARNOLD Payer ID:[id number] (NAIC) Type:Zhilian ZhaopinO Address: [address] [facility] Member Subscriber Plan / Payer (Ef fective 2018-) Name:Susana Arnold Relation to Subscriber:Self Name:SUSANA ARNOLD Payer ID:[id number] (NAIC) Type:Zhilian ZhaopinO Address: [address] [facility] Member Subscriber Plan / Payer (Ef fective 2018-Present) Name:Susana Arnold Relation to Subscriber:Self Name:SUSANA ARNOLD Payer ID:[id number] (NAIC) Type:Zhilian ZhaopinO Address: [address] Member Subscriber Plan / Payer (Ef fective 2018-Present) Name:Susana Arnold Relation to Subscriber:Self Name:SUSANA ARNOLD Payer ID:[id number] (NAIC) Type:Zhilian ZhaopinO Address: [address] CARE Member Subscriber Plan / Payer (Ef fective 2018-Present) Name:Susana Arnold Relation to Subscriber:Self Name:SUSANA ARNOLD Payer ID:[id number] (NAIC) Type:Zhilian ZhaopinO Address: [address] CARE [facility] Advance Directives * Full Code (Latest Code Status on File) Date Activated Date Inactivated Comments 10/07/2018 4:27 PM 10/10/2018 11:03 PM Care Teams Volunteer Services Supervisor Relationship Specialty [place] [address] [place] [address] PCP - General 11/23/20
--- OUTSIDE RECORDS SUMMARY | 2025-01-28 15:26 | XMS_ITS | Encounter Summary ---
Author Organization [facility] Address [address] [place] [address] Care Team Providers Care Meat Manager Name Role Phone Herson Gupta MD Primary Care Provider [phone] Deneen Ko Primary Care Provider [phone] Encounter Details Date Type Department Care Team (Late st Contact Info) Description 02/20/2021 [facility] Family & Internal Medicine [facility] [id number] [place] [phone] Herson Gupta MD [address] [place] [address] RE: Medication Questions Social History Tobacco [...] documented as of this encounter Care Teams Meat Manager Relationship Specialty [place] [address] [place] [address] PCP - General FAMILY PRACTICE 10/17/19 12/19/21 [place] [address] [place] [address] PCP - General PHYSICIAN CORKING MACHINE OPERATOR 12/20/21 documented as of this encounter
--- OUTSIDE RECORDS SUMMARY | 2025-01-28 15:26 | XMS_ITS | Encounter Summary ---
Author Organization [facility] Address [address] [place] [address] Care Team Providers Care Nurse Office Name Role Phone Herson Gupta MD Primary Care Provider [phone] Deneen Ko Primary Care Provider [phone] Encounter Details Date Type Department Care Team (Late st Contact Info) Description 03/09/2021 [facility] Message Enc [facility] Medical Group Family & Internal Medicine [facility] [id number] [place] [phone] Herson Gupta MD [address] [place] [address] RE: Medication Questions Social History Tobacco [...] documented as of this encounter Care Teams Nurse Office Relationship Specialty [place] [address] [place] [address] PCP - General FAMILY PRACTICE 10/17/19 12/19/21 [place] [address] [place] [address] PCP - General PHYSICIAN CONTOUR BAND SAW OPERATOR VERTICAL 12/20/21 documented as of this encounter
[2025-01-28 15:33] VITALS: PULSE 82
[2025-01-28 15:34] VITALS: BP 108/78; PULSE 85; RESP 15; O2SAT 94
[2025-01-28 15:36] VITALS: O2SAT 96
[2025-01-28 15:36] LABS: Hematocrit 42.5 % (37.0-47.0); Hemoglobin 13.9 g/dL (12.0-15.0); Immature Granulocyte Percent A 0.3 % (0-0.5); Lymphocytes Absolute Auto 3.12 K/mm3 (0.9-3.2); Mean Corpuscular HGB Conc 32.7 g/dl (32-36); Mean Corpuscular Hemoglobin 28.7 pg (26-34); Mean Corpuscular Volume 87.8 fl (80-100); Nucleated Red Blood Cells Absolute Auto 0.000 K/mm3 (0.0-0.012); Nucleated Red Blood Cells Perc 0.0 % (0.0-0.2); Platelet Count Result 330 k/mm3 (150-375); Red Blood Count 4.84 M/mm3 (4.2-5.4); White Blood Count 10.0 K/mm3 (4.5-10.0)
[2025-01-28 15:47] LABS: Alanine Aminotransferase 17 U/L (6-35); Albumin Level 4.6 g/dL (3.5-5.1); Alkaline Phosphatase 68 U/L (38-126); Anion Gap 10 mmol/L (4-12); Aspartate Amino Transferase 21 U/L (14-36); Bilirubin,Total 0.6 mg/dL (0.2-1.3); Blood Urea Nitrogen 20 mg/dL (7-17); Calcium 9.7 mg/dL (8.4-10.2); Carbon Dioxide 24 mmol/L (22-30); Chloride 104 mmol/L (98-107); Estimated CRCL calculation 85 ml/min; Estimated Glomerular Filt Rate > 60; Glucose 96 mg/dL (65-110); INR 1.0; Lipase 59 U/L (23-300); Potassium 4.1 mmol/L (3.4-5.0); Prothrombin Time 13.4 Seconds (11.1-14.7); Sodium 138 mmol/L (137-145); Total Protein 8.1 g/dL (6.3-8.2)
[2025-01-28 15:48] LABS: Partial Thromboplastin Time 25.7 Seconds (22.3-36.8)
[2025-01-28 15:59] LABS: Troponin I < 0.012 ng/mL (0.000-0.034)
[2025-01-28 16:12] VITALS: BP 114/79; PULSE 91; RESP 16; O2SAT 97
--- NOTE | 2025-01-28 17:58 | ECG_ITS ---
Test Date: 2025-01-28 18:06:37 Measurements Intervals [place] Rate: 78 P: 17 PA: 122 QRS: 34 QRSD: 90 T: -1 QT: 351 QTc: 400 Interpretive Statements SINUS RHYTHM NONSPECIFIC T-WAVE ABNORMALITY Compared to ECG 01/28/2025 15:13:27 Short PA interval no longer present T-wave abnormality still present Electronically Signed On 01-29-2025 10:59:56 CDT by Ata Melton M.D.
--- OUTSIDE RECORDS SUMMARY | 2025-01-28 18:02 | XMS_ITS ---
Author Name YENIFER BAIG, PhD, DR. INGRID [facility] Address [address] [facility] [address] [place] [address] Phone [phone] Organization [facility] Care Team Providers Care Teacher Resource Name Role Phone [address]GR[address] Unavailable [phone] Analisa Kellogg Unavailable [phone] Reason for Referral Not Available Allergies, adverse [...] capsule orally daily 2024-12-24 No Data Available Freeman-3 Fish Oil 1200 mg Cap 1 capsule [...] of Service Diagnosis/Co mplaint ROV 40-54 min [facility] Neurology 12/24/2024 Migraine w ith aura, not [...] date Servicing provider Phone# ROV 40-54 min [id number] 2024-12-24 No Data Available No D samantha Available Each additional 1-15 mins [id number] 2024-12-24 No Data Available No Data Availa [...] cocktail (effective), amitriptyline (felt weird), Emgality (ineffective), [place] patches which contain Coenzyme Q10, Butterbur, topamax (may have helped at 25-50mg BID, but possible side effects at 100 BID) 2024-12-24 Multiple other sympt oms: we discussed various causes and I encouraged her to have B12 rechecked in 2 months and make sure that TSH and basic labs are already completed. May benefit from residential pest control technician referral if presyncope returns. Staying well hydrated.
--- OUTSIDE RECORDS SUMMARY | 2025-01-28 18:03 | XMS_ITS | Clinical Summary ---
Author Organization [facility] Address [address] [place] [address] Care Team Providers Care Public Opinion Survey Taker Name Role Phone Herson Gupta MD Primary Care Provider Source Comments [facility],non-owned Affiliates and Associated Physician Practices is amultiple site organization consisting of ambulatory clinics and hospital sitesin [place], [place], [place] and [place]. This disclosure is being madepursuant to the Care Everywhere program and may not contain all information available regarding this patient. Last updated 18.[facility] Allergies Active Allergy Reactions Criticality Noted Date [...] (NAIC) Group ID:[id number] Type:PPO Address: [id number] Member Subscriber Plan / Payer (Ef fective 2018-Present) Name:Susana Arnold Relation to Subscriber:Self Name:Susana Arnold Jr Payer ID:[id number] (NAIC) Type:O Address: [place] [id number] [place] [phone] [facility] Member Subscriber Plan / Payer (Ef fective 2018-Present) Name:Susana Arnold Jr Relation to Subscriber:Self Name:SUSANA ARNOLD Payer ID:[id number] (NAIC) Type:O Address: [address] CARE Member Subscriber Plan / Payer (Ef fective 2018-Present) Name:Susana Arnold Jr Relation to Subscriber:Self Name:SUSANA ARNOLD Payer ID:[id number] (NAIC) Type:xTurionO Address: [address] CARE Member Subscriber Plan / Payer (Ef fective 2018-Present) Name:Susana Arnold Jr Relation to Subscriber:Self Name:SUSANA ARNOLD Payer ID:[id number] (NAIC) Type:O Address: [address] CARE Member Subscriber Plan / Payer (Ef fective 2018-Present) Name:Susana Arnold Jr Relation to Subscriber:Self Name:SUSANA ARNOLD Payer ID:[id number] (NAIC) Type:xTurionO Address: [address] CARE Member Subscriber Plan / Payer (Ef fective 2018-Present) Name:Susana Arnold Relation to Subscriber:Self Name:SUSANA ARNOLD A Payer ID:[id number] (NAIC) Type:xTurionO Address: [address] [facility] Member Subscriber Plan / Payer (Ef fective 2018-Present) Name:Susana Arnold Jr Relation to Subscriber:Self Name:SUSANA ARNOLD Jr Payer ID:[id number] (NA) Type:xTurionO Address: [address] [facility] Member Subscriber Plan / Payer (Ef fective 2018-Present) Name:Clayton Susana Norris Relation to Subscriber:Self Name:CLAYTONSUSANA Payer ID:[id number] ([facility]) Type:xTurionO Address: [address] CARE Member Subscriber Plan / Payer (Ef fective 2018-Present) Name:Clayton Susana Jr Relation to Subscriber:Self Name:SUSANA ARNOLD Jr Payer ID:[id number] ([facility]) Type:HMO Address: [address] CARE Member Subscriber Plan / Payer (Ef fective 2018-Present) Name:Susana Arnold Relation to Subscriber:Self Name:SUSANA ARNOLD Jr Payer ID:[id number] (NAIC) Type:HMO Address: [address] [facility] Member Subscriber Plan / Payer (Ef fective 2018-) Name:Susana Arnold Relation to Subscriber:Self Name:SUSANA ARNOLD Payer ID:[id number] (NAIC) Type:O Address: [address] [facility] Member Subscriber Plan / Payer (Ef fective 2018-Present) Name:Susana Arnold Relation to Subscriber:Self Name:SUSANA ARNOLD Payer ID:[id number] (NAIC) Type:KDS Address: [address] Member Subscriber Plan / Payer ( fective 2018-) Name:Susana Arnold Relation to Subscriber:Self Name:SUSANA ARNOLD Payer ID:[id number] (NAIC) Type:xTurionO Address: [address] CARE Member Subscriber Plan / Payer ( fective 2018-) Name:Susana Arnold Relation to Subscriber:Self Name:SUSANA ARNOLD Payer ID:[id number] (NAIC) Type:xTurionO Address: [address] CARE Member Subscriber Plan / Payer ( fective 2018-Present) Name:Susana Arnold Relation to Subscriber:Self Name:SUSANA ARNOLD Payer ID:[id number] (NAIC) Type:HMO Address: [address] [facility] Member Subscriber Plan / Payer (Ef fective 2018-Present) Name:Susana Arnold Jr Relation to Subscriber:Self Name:SUSANA ARNOLD Jr Payer ID:[id number] (NAIC) Type:xTurionO Address: [address] [facility] Member Subscriber Plan / Payer (Ef fective 2018-Present) Name:ClaytonSusana Relation to Subscriber:Self Name:CLAYTONSUSANA Payer ID:[id number] (NAIC) Type:xTurionO Address: [address] CARE Member Subscriber Plan / Payer (Ef fective 2018-Present) Name:ClaytonPedroSusana Jr Relation to Subscriber:Self Name:SUSANA ARNOLD Jr Payer ID:[id number] (NAIC) Type:HMO Address: [address] [facility] Member Subscriber Plan / Payer (Ef fective 2018-Present) Name:OtisSusana hoang Relation to Subscriber:Self Name:SUSANA ARNOLD Jr Payer ID:[id number] (NAIC) Type:HMO Address: [address] [facility] Member Subscriber Plan / Payer (Ef fective 2018-Present) Name:Susana Arnold Relation to Subscriber:Self Name:SUSANA ARNOLD Payer ID:[id number] (NAIC) Type:O Address: [address] [facility] Member Subscriber Plan / Payer ( fective 2018-) Name:Susana Arnold Relation to Subscriber:Self Name:SUSANA ARNOLD Payer ID:[id number] (NAIC) Type:O Address: [address] CARE Member Subscriber Plan / Payer (Critical access hospitaltive 05/21/2018-) Name:Susana Arnold Relation to Subscriber:Self Name:SUSANA ARNOLD Payer ID:[id number] (NAIC) Type:O Address: [address] CARE Member Subscriber Plan / Payer (Critical access hospitaltive 05/21/2018-) Name:Susana Arnodl Relation to Subscriber:Self Name:SUSANA ARNOLD Payer ID:[id number] (NAIC) Type:O Address: [address] CARE Member Subscriber Plan / Payer ( fective 2018-) Name:Susana Arnold Relation to Subscriber:Self Name:SUSANA ARNOLD Payer ID:[id number] (NAIC) Type:HMO Address: [address] [facility] Member Subscriber Plan / Payer (Ef fective 2018-) Name:Clayton Susana Jr Relation to Subscriber:Self Name:SUSANA ARNOLD Jr Payer ID:[id number] (NAIC) Type:xTurionO Address: [address] [facility] Member Subscriber Plan / Payer (Ef fective 2018-) Name:Susana Arnold Relation to Subscriber:Self Name:CLAYTONSUSANA Payer ID:[id number] (NAIC) Type:xTurionO Address: [address] CARE Member Subscriber Plan / Payer (Ef fective 2018-) Name:Susana Arnold Relation to Subscriber:Self Name:SUSANA ARNOLD Jr Payer ID:[id number] (NAIC) Type:xTurionO Address: [address] [facility] Member Subscriber Plan / Payer (Ef fective 2018-) Name:Susana Arnold Relation to Subscriber:Self Name:SUSANA ARNOLD Payer ID:[id number] (NAIC) Type:xTurionO Address: [address] [facility] Member Subscriber Plan / Payer (Ef fective 2018-) Name:Susana Arnold Relation to Subscriber:Self Name:SUSANA ARNOLD Payer ID:[id number] (NAIC) Type:xTurionO Address: [address] [facility] Member Subscriber Plan / Payer (Ef fective 2018-Present) Name:Susana Arnold Relation to Subscriber:Self Name:SUSANA ARNOLD Payer ID:[id number] (NAIC) Type:xTurionO Address: [address] Member Subscriber Plan / Payer (Ef fective 2018-Present) Name:Susana Arnold Relation to Subscriber:Self Name:SUSANA ARNOLD Payer ID:[id number] (NAIC) Type:xTurionO Address: [address] CARE Member Subscriber Plan / Payer (Ef fective 2018-Present) Name:Susana Arnold Relation to Subscriber:Self Name:SUSANA ARNOLD Payer ID:[id number] (NAIC) Type:xTurionO Address: [address] CARE Member Subscriber Plan / Payer (Ef fective 2018-Present) Name:Susana rAnold Relation to Subscriber:Self Name:SUSANA ARNOLD Payer ID:[id number] (NAIC) Type:xTurionO Address: [address] [address] [facility] Member Subscriber Plan / Payer (Ef fective 2018-Present) Name:Susana Arnold Relation to Subscriber:Self Name:SUSANA ARNOLD Payer ID:[id number] (NAIC) Type:O Address: [address] [address] [facility] Member Subscriber Plan / Payer (Ef fective 2018-Present) Name:Susana Arnold Relation to Subscriber:Self Name:SUSANA ARNOLD Payer ID:[id number] (NAIC) Type:O Address: [address] [address] Advance Directives * Full Code (Latest Code Status on File) Date Activated Date Inactivated Comments 10/07/2018 4:27 PM 10/10/2018 11:03 PM Care Teams Public Opinion Survey Taker Relationship Specialty [place] [address] [place] [address] PCP - General 11/23/20
--- OUTSIDE RECORDS SUMMARY | 2025-01-28 18:03 | XMS_ITS | Clinical Summary ---
Author Organization [facility] Address [facility] [place] [address] Care Team Providers Care Refuge Manager Name Role Phone Deneen Ko Primary Care Provider [phone] Allergies Active Allergy Reactions Criticality Noted Date Comments Amoxicillin-Pot Clavulanate Hives,Rash Medium 03/04/20 16 Metronidazole Rash,Vomiting Low 05/07/2019 Medications Prenat-Fe Bkpmfzyy-[id number]-[id number] 3 (ONE-A-DAY WOMENS 1 OR) 0 Active [...] Comments Blood Pressure 101/67 05/17/2024 8:34 PM HVAC OPERATIONS TECHNICIAN Pulse 83 05/17/2024 8:34 PM HVAC OPERATIONS TECHNICIAN Temperature 36.1 C (97 F) 05/17/2024 8:34 PM HVAC OPERATIONS TECHNICIAN Respiratory Rate 16 05/17/2024 8:34 PM HVAC OPERATIONS TECHNICIAN Oxygen Saturation 95% 05/17/2024 8:34 PM HVAC OPERATIONS TECHNICIAN Inhaled Oxygen Concentration - - Weight 70.3 kg (155 lb) 05/17/2024 5:23 PM HVAC OPERATIONS TECHNICIAN Height 152.4 cm (5') 05/17/2024 5:23 PM HVAC OPERATIONS TECHNICIAN Body Mass Index 30.27 05/17/2024 5:23 PM HVAC OPERATIONS TECHNICIAN Plan of Treatment Health Maintenance Due Date [...] Every 5 Years 2022 Cervical Cancer Screening [facility] HPV 2022 COVID-19 Vaccine (3 - 2024-2 [...] patient's age to complete this topic Insurance [facility] Care Teams Refuge Manager Relationship Specialty Start Date End Date Deneen Ko PA PCP - General PHYSICIAN MELLOWING MACHINE OPERATOR 12/20/21
--- OUTSIDE RECORDS SUMMARY | 2025-01-28 18:03 | XMS_ITS | Encounter Summary ---
Author Organization [facility] Address [address] [place] [address] Care Team Providers Care Ecommerce Project Manager Name Role Phone Reba Allen MA Primary Care Provider [facility] Herson Caal MD Primary Care Provider Encounter Details Date Type Department Care Team (Late st Contact Info) Description 08/21/2018 [facility] Outpatient Visit [facility] [address] [place] [address] Rosy Patino MD [address] [phone] Social History Tobacco Use Types [...] on filedocumented in this encounter Care Teams Ecommerce Project Manager Relationship Specialty Start Date End Date Reba Allen MA PCP - General 05/03/16 11/22/20 [place] [address] [place] [address] PCP - General 11/23/20 documented as of this encounter
--- OUTSIDE RECORDS SUMMARY | 2025-01-28 18:03 | XMS_ITS | Clinical Summary ---
Author Organization [facility] Address [address] [place] [address] Care Team Providers Care Social Science Manager Name Role Phone Omkar Carmen MD Primary Care Provider [phone] Allergies Active Allergy Reactions Criticality Noted Date [...] tablet Take 10 mg by mouth. Active [employer] Katja, migraine, Misc USE ONE 45 [...] Data STL ABSTRACTION Provider, Abstract 10/30/2024 Refill [facility] [address] HUANG [address] [place] [phone] Ramin Wilson MD from Last 3 Months [...] Comments Blood Pressure 110/70 04/03/2024 1:19 PM OCCUPATIONAL THERAPY INSTRUCTOR Pulse 74 04/03/2024 1:19 PM OCCUPATIONAL THERAPY INSTRUCTOR Temperature - - Respiratory Rate 16 03/19/2023 2:50 PM CDT Oxygen Saturation 99% 04/03/2024 1:19 PM OCCUPATIONAL THERAPY INSTRUCTOR Inhaled Oxygen Concentration - - Weight 72.4 kg (159 lb 9.6 oz) 04/03/2024 1:19 P M OCCUPATIONAL THERAPY INSTRUCTOR Height 152.4 cm (5') 04/03/2024 1:19 PM OCCUPATIONAL THERAPY INSTRUCTOR Body Mass Index 31.17 04/03/2024 1:19 PM OCCUPATIONAL THERAPY INSTRUCTOR Plan of Treatment Health Maintenance Due Date Last Done Comments DTAP/TDAP/TD VACCINES (1 - Tdap) 2011 HEPATITIS B VACCINES (1 of 3 - 19+ 3-dose series) 05/22 HPV/Cotest (21-29) 2013 HPV VACCINES (1 - 3-dose SCDM series) 2019 CERVICAL CANCER SCREENING 2022 HPV/Cotest (30-65) 2022 PAP SMEAR 2022 INFLUENZA VACCINE (#1) [address] [facility] [employer] ACCESS CHOICE Care Teams Social Science Manager Relationship Specialty Start Date End Date Omkar Carmen MD [address] [place] [phone] PCP - General Family Practice 09/11/22
--- OUTSIDE RECORDS SUMMARY | 2025-01-28 18:03 | XMS_ITS | Encounter Summary ---
Author Organization [facility] Address [address] [place] [address] Care Team Providers Care Environmental Health Manager Name Role Phone Herson Gupta MD Primary Care Provider [phone] Deneen Ko Primary Care Provider [phone] Encounter Details Date Type Department Care Team (Late st Contact Info) Description 02/20/2021 [employer] Message Enc [facility] Family & Internal Medicine [facility] [id number] [place] [phone] Herson Gupta MD [address] [place] [address] RE: Medication Questions Social History Tobacco [...] documented as of this encounter Care Teams Environmental Health Manager Relationship Specialty [place] [address] [place] [address] PCP - General FAMILY PRACTICE 10/17/19 12/19/21 [place] [address] [place] [address] PCP - General PHYSICIAN SCHOOL AGE PROGRAM ASSOCIATE 12/20/21 documented as of this encounter
--- OUTSIDE RECORDS SUMMARY | 2025-01-28 18:03 | XMS_ITS | Encounter Summary ---
Author Organization [facility] Address [address] [place] [address] Care Team Providers Care Technology Services Manager Name Role Phone Herson Gupta MD Primary Care Provider [phone] Deneen Ko Primary Care Provider [phone] Encounter Details Date Type Department Care Team (Late st Contact Info) Description 03/09/2021 [employer] Message Enc [facility] Family & Internal Medicine [facility] [id number] [place] [phone] Herson Gupta MD [address] [place] [address] RE: Medication Questions Social History Tobacco [...] documented as of this encounter Care Teams Technology Services Manager Relationship Specialty [place] [address] [place] [address] PCP - General FAMILY PRACTICE 10/17/19 12/19/21 [place] [address] [place] [address] PCP - General PHYSICIAN PLASTIC TUBING INSULATION SUPERVISOR 12/20/21 documented as of this encounter
--- NOTE | 2025-01-28 18:17 | PC.NURSE ---
BSSR received from Argelia MATHEW at this time. 3hr ekg completed. call light within reach, no further requests or needs at this time.
[2025-01-28 18:24] LABS: Troponin I < 0.012 ng/mL (0.000-0.034)
[2025-01-28 19:14] VITALS: BP 126/80; PULSE 99; RESP 18; O2SAT 95
== END 2025-01-28 19:19 | disposition home or self-care (01) ==
PROVIDERS: Emergency Medicine; Emergency Provider Physician Assistant; PCP Clinical Nurse Specialist
DX: R07.89 Other chest pain (principal); K21.9 Gastro-esophageal reflux disease without esophagitis; K58.9 Irritable bowel syndrome, unspecified; F41.9 Anxiety disorder, unspecified; R94.31 Abnormal electrocardiogram [ECG] [EKG]
CPT/HCPCS: 36415; 71046; 80053; 83690; 84484; 85025; 85380; 85610; 85730; 93005; 99284

== ENCOUNTER 2025-02-16 15:45 | Outpatient (CLI) | payer BC, SELFPAY ==
--- NOTE | ~2025-02-16 | US_ITS ---
Clinical history:Other specified abnormal immunological findings EXAM:Ultrasound thyroid TECHNIQUE:Multiple static grayscale and color Doppler images were obtained of the thyroid gland. Comparisons:None available FINDINGS: Right thyroid lobe measures 3.6 x 1.4 x 1.3 cm and is heterogeneous. There is a 1.0 x 0.7 x 0.7 cm solid hypoechoic nodule in the right thyroid lobe. TR4. Isthmus measures 0.5 cm and is heterogeneous. Left thyroid lobe measures 3.5 x 1.1 x 1.3 cm and is heterogeneous. IMPRESSION: 1. There is a 1.0 cm right thyroid nodule. TR 4. A follow-up thyroid ultrasound in 6 months is recommended. 2. The thyroid gland is heterogeneous. Reviewed, dictated and finalized at location Q.
== END 2025-02-16 15:46 | disposition home or self-care (01) ==
LOC: GOSHIMG 15:45
PROVIDERS: PCP Clinical Nurse Specialist; Visit Provider Clinical Nurse Specialist
DX: R76.8 Other specified abnormal immunological findings in serum (principal); Z80.8 Family history of malignant neoplasm of other organs or systems; E04.1 Nontoxic single thyroid nodule
CPT/HCPCS: 76536

== ENCOUNTER 2025-02-17 08:47 | Outpatient (CLI) | payer BC, SELFPAY ==
--- NOTE | 2025-02-17 09:02 | ECHO_ITS ---
Patient Info Name: Zeenat Arnold Age: 34 years : 1990 Gender: Female Ht: 60 in Wt: 153 lbs BSA: 1.74 m2 HR: 57 bpm BP: 104 / 86 mmHg Technical Quality: Good Exam Date: 02/17/2025 9:12 AM Patient Status: O Admit Date: 02/17/2025 Exam Type: CA echo doppler color flow Complete two-dimensional, color flow and Doppler transthoracic echocardiogram is performed. Bridge Manager: Júnior Sagastume III Attending Provider: Savannah Boland [facility] Summary 1. Complete two-dimensional, color flow and Doppler transthoracic echocardiogram is performed. 2. Left ventricular chamber dimension is normal. 3. Left ventricular systolic function is normal, estimated at 60-65. 4. The left ventricular diastolic function is normal. 5. E/e' 5 is not elevated. 6. Left atrial chamber dimension is mildly enlarged. 7. There is trace tricuspid valve regurgitation. Left Ventricle E/e' 5 is not elevated. Left ventricular chamber dimension is normal. Left ventricular systolic function is normal, estimated at 60-65. The left ventricular diastolic function is normal. Right Ventricle Right ventricular chamber dimension is normal. Right ventricular systolic function is normal and with normal TAPSE 2.0 cm. Left Atria Left atrial chamber dimension is mildly enlarged. Right Atria Right atrial chamber dimension is normal. Aortic Valve The aortic valve is trileaflet. There is no aortic valve stenosis. There is no aortic valve regurgitation. Pulmonic Valve There is no pulmonic regurgitation. Mitral Valve There is no mitral valve stenosis. There is no mitral valve regurgitation. Tricuspid Valve There is trace tricuspid valve regurgitation. RVSP is not measured due to an inadequate TR jet. Pericardium/Pleural There is no pericardial effusion. Inferior Vena Cava Normal inferior vena cava with >50% collapse upon inspiration consistent with normal right atrial pressure, 5 mmHg. Aorta The aortic root size at the sinus of Valsalva is normal. Left Ventricular Outflow Tract Name Value Normal LVOT 2D LVOT Diameter 2.0 cm LVOT Doppler LVOT Peak Velocity 93 cm/s LVOT Peak Gradient 3 mmHg LVOT Mean Gradient 2 mmHg LVOT VTI 21 cm LVOT VTI/AV VTI Ratio 0.9 LVOT Stroke Volume 65 ml LVOT CO 3.6 l/min LVOT CI 2.1 l/min/m2 Pulmonic Valve Name Value Normal PV Doppler PV Peak Velocity 89 cm/s PV Peak Gradient 3 mmHg PV Mean Gradient 2 mmHg Mitral Valve Name Value Normal MV Doppler MV Peak Gradient 4 mmHg MV Mean Gradient 1 mmHg MV Area (Cont Eq VTI) 2.4 cm2 MV Diastolic Function MV E Peak Velocity 91 cm/s MV A Peak Velocity 41 cm/s MV E/A 2.2 MV Decel Time (PW) 242 ms MV Annular TDI MV E/e' (Septal) 6.0 MV E/e' (Lateral) 5.1 MV E/e' (Average) 5.5 Tricuspid Valve Name Value Normal Estimated PAP/RSVP RA Pressure 5 mmHg <=5 TV Annular TDI TV Lateral Bailey s' Velocity 11.6 cm/s >=9.5 Aortic Valve Name Value Normal AV Doppler AV Peak Velocity 116 cm/s AV Peak Gradient 5 mmHg AV Mean Gradient 3 mmHg AV VTI 23 cm AV Area (Cont Eq VTI) 2.8 cm2 >=3.0 AV Area (Cont Eq Elias) 2.5 cm2 AV DI (Elias) 0.81 AV Regurgitation 2D LVOT Area 3.0 cm2 Ventricles Name Value Normal LV Dimensions 2D/MM IVS Diastolic Thickness (2D) 0.6 cm 0.6-1.0 LVID Diastole (2D) 4.6 cm 3.8-5.2 LVIW Diastolic Thickness (2D) 0.8 cm 0.6-0.9 LVID Systole (2D) 3.2 cm 2.2-3.5 LVOT Diameter 2.0 cm LV Mass (2D Cubed) 100.49 g 67.00-162.00 LV Mass Index (2D Cubed) 58 g/m2 43-95 Relative Wall Thickness (2D) 0.33 <=0.42 LV Fractional Shortening/Ejection Fraction 2D/MM LV Fractional Shortening (2D) 31 % 27-45 LV EF (2D Teichholz) 59 % LV Diastolic Volume (4C MOD) 68 ml LV EF (4C MOD) 65 % LV Diastolic Volume (2C MOD) 56 ml LV EF (2C MOD) 63 % LV Diastolic Volume (BP MOD) 62 ml 46-106 LV Diastolic Volume Index (BP MOD) 36 ml/m2 29-61 LV Systolic Volume (BP MOD) 23 ml 14-42 LV Systolic Volume Index (BP MOD) 13 ml/m2 8-24 LV EF (BP MOD) 64 % 54-74 LV Diastolic Length (4C) 7.0 cm LV Systolic Length (4C) 5.7 cm LV Stroke Volume (4C MOD) 44 ml Atria Name Value Normal LA Dimensions LA Volume (4C A-L) 33 ml LA Volume (BP A-L) 33 ml RA Dimensions RA Systolic Major [place] Length (4C) 3.9 cm 2.2-2.8 RA Area (4C) 11.4 cm2 <=18.0 Report Signatures
--- OUTSIDE RECORDS SUMMARY | 2025-02-17 09:06 | XMS_ITS ---
Author Name YENIFER BAIG, PhD, DR. INGRID Lynch Address [address] [facility] [address] [place] [address] Phone [phone] Organization [facility] Care Team Providers Care Quality Control Auditor Name Role Phone [address]GRID ST[address] Unavailable [phone] Analisa Kellogg Unavailable [phone] Reason for Referral Not Available Allergies, adverse [...] capsule orally daily 2024-12-24 No Data Available [place]-3 Fish Oil 1200 mg Cap 1 capsule [...] of Service Diagnosis/Co mplaint ROV 40-54 min [facility] 12/24/2024 Migraine w ith aura, not [...] tive Time Current Smoking Status Never smoker 3 0 Sex Female History of Procedures Procedures Service Procedure code Service date Servicing provider Phone# ROV 40-54 min [id number] 2024-12-24 No Data Available No D samantha Available Each additional 1-15 mins [id number] 2024-12-24 No Data Available No Data Availa [...] cocktail (effective), amitriptyline (felt weird), Emgality (ineffective), Springer patches which contain Coenzyme Q10, Butterbur, topamax (may have helped at 25-50mg BID, but possible side effects at 100 BID) 2024-12-24 Multiple other sympt oms: we discussed various causes and I encouraged her to have B12 rechecked in 2 months and make sure that TSH and basic labs are already completed. May benefit from worship director referral if presyncope returns. Staying well hydrated.
--- OUTSIDE RECORDS SUMMARY | 2025-02-17 09:07 | XMS_ITS | Clinical Summary ---
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 Gender Identity Not on file Sexual Orientation [...] 03/08/2022 4:01 PM CDT Body Mass Index 10300.8 03/08/2022 4:01 PM CDT Plan of Treatment Health Maintenance Due Date Last Done Comments Cervical Cancer Screening 1990 Depression Screening 1990 Hepatitis C Screening 1990 DTaP/Tdap/Td Vaccine (1 - Tdap) 2003 Varicella Vaccines (1 of 2 - 13+ 2-dose series) 2005 Hepatitis B Screening 2010 Regular Well Visit/Exam 18-64 2010 HPV Vaccines (1 - 3-dose SCD M series) 2019 Covid-19 Vaccine (3 - 2024-2 6 season) 2025 09/09/2020, 08/19/2020 Influenza Vaccine (#1) 2025 Pneumococcal [...] BL CHOICE PRF [place] Care Teams Cash Application Representative Relationship Specialty Start Date End Date Analisa Pleitez PA [address] [place] [address] PCP - General Family Practice 01/19/22 Peter Guerrier MD [address] [place] [address] Consulting Physician Rheumatology 01/19/22
--- OUTSIDE RECORDS SUMMARY | 2025-02-17 09:07 | XMS_ITS | Encounter Summary ---
Author Organization [facility] Health Address [address] [place] [address] Care Team Providers Care Rock Dust Sprayer Name Role Phone Reba Allen MA Primary Care Provider [facility] Herson Caal MD Primary Care Provider [phone] Encounter Details Date Type Department Care Team (Late st Contact Info) Description 08/21/2018 [facility] Outpatient Visit [facility] [address] [place] [address] Rosy Patino MD [address] [address] Social History Tobacco Use Types [...] on filedocumented in this encounter Care Teams Rock Dust Sprayer Relationship Specialty Start Date End Date Reba Allen MA PCP - General 05/03/16 11/22/20 [place] [address] [place] [address] PCP - General 11/23/20 documented as of this encounter
--- OUTSIDE RECORDS SUMMARY | 2025-02-17 09:07 | XMS_ITS | Clinical Summary ---
Author Organization [facility] Address [address] [place] [address] Care Team Providers Care Metal Engraver Name Role Phone Omkar Carmen MD Primary Care Provider [phone] Allergies Active Allergy Reactions Criticality Noted Date [...] tablet Take 10 mg by mouth. Active NerivKopo Kopo [employer] Katja, migraine, Misc USE ONE 45 [...] dose 7.5mg in 24 hours 2 Tablet 11 04/03/20 Active SUMAtriptan (IMITREX) 100 mg tablet [...] Comments Blood Pressure 110/70 04/03/2024 1:19 PM BIOMEDICAL SERVICE ENGINEER Pulse 74 04/03/2024 1:19 PM BIOMEDICAL SERVICE ENGINEER Temperature - - Respiratory Rate 16 03/19/2023 2:50 PM CDT Oxygen Saturation 99% 04/03/2024 1:19 PM BIOMEDICAL SERVICE ENGINEER Inhaled Oxygen Concentration - - Weight 72.4 kg (159 lb 9.6 oz) 04/03/2024 1:19 P M BIOMEDICAL SERVICE ENGINEER Height 152.4 cm (5') 04/03/2024 1:19 PM BIOMEDICAL SERVICE ENGINEER Body Mass Index 31.17 04/03/2024 1:19 PM BIOMEDICAL SERVICE ENGINEER Plan of Treatment Health Maintenance Due Date Last Done Comments DTAP/TDAP/TD VACCINES (1 - Tdap) 2011 HEPATITIS B VACCINES (1 of 3 - 19+ 3-dose series) 05/22 HPV/Cotest (21-29) 2013 HPV VACCINES (1 - 3-dose SCDM series) 2019 CERVICAL CANCER SCREENING 2022 HPV/Cotest (30-65) 2022 PAP SMEAR 2022 INFLUENZA VACCINE (#1) 2024 Insurance [facility] [employer] ACCESS CHOICE Care Teams Metal Engraver Relationship Specialty Start Date End Date Omkar Carmen MD [address] [place] [id number] PCP - General Family Practice 09/11/22
--- OUTSIDE RECORDS SUMMARY | 2025-02-17 09:07 | XMS_ITS | Clinical Summary ---
Author Organization [facility] Address [address] [place] [address] Care Team Providers Care Bankruptcy Manager Name Role Phone Herson Gupta MD Primary Care Provider Source Comments [facility],non-owned Affiliates and Associated Physician Practices is amultiple site organization consisting of ambulatory clinics and hospital sitesin [place], [place], [place] and [place]. This disclosure is being madepursuant to the Care Everywhere program and may not contain all information available regarding this patient. Last updated 18.[facility] Allergies Active Allergy Reactions Criticality [...] (NAIC) Group ID:[id number] Type:PPO Address: [address] Member Subscriber Plan / Payer (Ef fective 2018-Present) Name:Susana Arnold Relation to Subscriber:Self Name:Susana Arnold Jr Payer ID:[id number] (NAIC) Type:O Address: [place] [id number] [place] [id number] [facility] Member Subscriber Plan / Payer (Ef fective 2018-Present) Name:Susana Arnold Jr Relation to Subscriber:Self Name:SUSANA ARNOLD Payer ID:[id number] (NAIC) Type:O Address: [address] CARE Member Subscriber Plan / Payer (Ef fective 2018-Present) Name:Susana Arnold Jr Relation to Subscriber:Self Name:SUSAAN ARNOLD Payer ID:[id number] (NAIC) Type:AzoooO Address: [address] CARE Member Subscriber Plan / Payer (Ef fective 2018-Present) Name:Susana Arnold Jr Relation to Subscriber:Self Name:SUSANA ARNOLD Payer ID:[id number] (NAIC) Type:O Address: [address] CARE Member Subscriber Plan / Payer (Ef fective 2018-Present) Name:Susana Arnold Jr Relation to Subscriber:Self Name:SUSANA ARNOLD Payer ID:[id number] (NAIC) Type:AzoooO Address: [address] CARE Member Subscriber Plan / Payer (Ef fective 2018-Present) Name:Susana Arnold Relation to Subscriber:Self Name:SUSANA ARNOLD A Payer ID:[id number] (NAIC) Type:AzoooO Address: [address] [facility] Member Subscriber Plan / Payer (Ef fective 2018-Present) Name:Susana Arnold Jr Relation to Subscriber:Self Name:SUSANA ARNOLD Jr Payer ID:[id number] (NA) Type:AzoooO Address: [address] [facility] Member Subscriber Plan / Payer (Ef fective 2018-Present) Name:Clayton Susana Norris Relation to Subscriber:Self Name:CLAYTONSUSANA Payer ID:[id number] ([facility]) Type:AzoooO Address: [address] CARE Member Subscriber Plan / Payer (Ef fective 2018-Present) Name:Clayton Susana Jr Relation to Subscriber:Self Name:SUSANA ARNOLD Jr Payer ID:[id number] ([facility]) Type:HMO Address: [address] CARE Member Subscriber Plan / Payer (Ef fective 2018-Present) Name:Susana Arnold Relation to Subscriber:Self Name:SUSANA ARNOLD Jr Payer ID:[id number] (NAIC) Type:HMO Address: [address] [facility] Member Subscriber Plan / Payer (Ef fective 2018-) Name:Susana Arnold Relation to Subscriber:Self Name:SUSANA ARNOLD Payer ID:[id number] (NAIC) Type:O Address: [address] [facility] Member Subscriber Plan / Payer (Ef fective 2018-Present) Name:Susana Arnold Relation to Subscriber:Self Name:SUSANA ARNOLD Payer ID:[id number] (NAIC) Type:[email or web address] Address: [address] Member Subscriber Plan / Payer ( fective 2018-) Name:Susana Arnold Relation to Subscriber:Self Name:SUSANA ARNOLD Payer ID:[id number] (NAIC) Type:AzoooO Address: [address] CARE Member Subscriber Plan / Payer ( fective 2018-) Name:Susana Arnold Relation to Subscriber:Self Name:SUSANA ARNOLD Payer ID:[id number] (NAIC) Type:AzoooO Address: [address] CARE Member Subscriber Plan / Payer ( fective 2018-Present) Name:Susana Arnold Relation to Subscriber:Self Name:SUSANA ARNOLD Payer ID:[id number] (NAIC) Type:HMO Address: [address] [facility] Member Subscriber Plan / Payer (Ef fective 2018-Present) Name:Susana Arnold Jr Relation to Subscriber:Self Name:SUSANA ARNOLD Jr Payer ID:[id number] (NAIC) Type:AzoooO Address: [address] [facility] Member Subscriber Plan / Payer (Ef fective 2018-Present) Name:ClaytonSusana Relation to Subscriber:Self Name:CLAYTONSUSANA Payer ID:[id number] (NAIC) Type:[employer] Address: [address] CARE Member Subscriber Plan / Payer (Ef fective 2018-Present) Name:ClaytonPedroSusana Jr Relation to Subscriber:Self Name:SUSANA ARNOLD Jr Payer ID:[id number] (NAIC) Type:HMO Address: [address] [facility] Member Subscriber Plan / Payer (Ef fective 2018-Present) Name:[place]Sus[place] hoang Relation to Subscriber:Self Name:SUSANA ARNOLD Jr Payer ID:[id number] (NAIC) Type:HMO Address: [address] [facility] Member Subscriber Plan / Payer (Ef fective 2018-Present) Name:Susana Arnold Relation to Subscriber:Self Name:SUSANA ARNOLD Payer ID:[id number] (NAIC) Type:O Address: [address] [facility] Member Subscriber Plan / Payer ( fective 2018-) Name:Susana Arnold Relation to Subscriber:Self Name:SUSANA ARNOLD Payer ID:[id number] (NAIC) Type:O Address: [address] CARE Member Subscriber Plan / Payer ([facility] 05/21/2018-) Name:Susana Arnold Relation to Subscriber:Self Name:SUSANA ARNOLD Payer ID:[id number] (NAIC) Type:O Address: [address] CARE Member Subscriber Plan / Payer ([facility] 05/21/2018-) Name:Susana Arnold Relation to Subscriber:Self Name:SUSANA ARNOLD Payer ID:[id number] (NAIC) Type:O Address: [address] CARE Member Subscriber Plan / Payer ( fective 2018-) Name:Susana Arnold Relation to Subscriber:Self Name:SUSANA ARNOLD Payer ID:[id number] (NAIC) Type:HMO Address: [address] [facility] Member Subscriber Plan / Payer (Ef fective 2018-) Name:Clayton Susana Jr Relation to Subscriber:Self Name:SUSANA ARNOLD Jr Payer ID:[id number] (NAIC) Type:Azooo[employer] Address: [address] [facility] Member Subscriber Plan / Payer (Ef fective 2018-) Name:Susana Arnold Relation to Subscriber:Self Name:CLAYTONSUSANA Payer ID:[id number] (NAIC) Type:[employer] Address: [address] CARE Member Subscriber Plan / Payer (Ef fective 2018-) Name:Susana Arnold Relation to Subscriber:Self Name:SUSANA ARNOLD Jr Payer ID:[id number] (NAIC) Type:AzoooO Address: [address] [facility] Member Subscriber Plan / Payer (Ef fective 2018-) Name:Susana Arnold Relation to Subscriber:Self Name:SUSANA ARNOLD Payer ID:[id number] (NAIC) Type:[employer] Address: [address] [facility] Member Subscriber Plan / Payer (Ef fective 2018-) Name:Susana Arnold Relation to Subscriber:Self Name:SUSANA ARNOLD Payer ID:[id number] (NAIC) Type:AzoooO Address: [address] [facility] Member Subscriber Plan / Payer (Ef fective 2018-Present) Name:Susana Arnold Relation to Subscriber:Self Name:SUSANA ARNOLD Payer ID:[id number] (NAIC) Type:[employer] Address: [address] Member Subscriber Plan / Payer (Ef fective 2018-Present) Name:Susana Arnold Relation to Subscriber:Self Name:SUSANA ARNOLD Payer ID:[id number] (NAIC) Type:[employer] Address: [address] CARE Member Subscriber Plan / Payer (Ef fective 2018-Present) Name:Susana Arnold Relation to Subscriber:Self Name:SUSANA ARNOLD Payer ID:[id number] (NAIC) Type:[employer] Address: [address] CARE [facility] Advance Directives * Full Code (Latest Code Status on File) Date Activated Date Inactivated Comments 10/07/2018 4:27 PM 10/10/2018 11:03 PM Care Teams Bankruptcy Manager Relationship Specialty [place] [address] [place] [address] PCP - General 11/23/20
== END 2025-02-17 08:48 | disposition home or self-care (01) ==
PROVIDERS: PCP Clinical Nurse Specialist; Visit Provider Clinical Nurse Specialist
DX: R06.02 Shortness of breath (principal); R00.2 Palpitations; I51.7 Cardiomegaly
CPT/HCPCS: 93306

== ENCOUNTER 2025-05-08 13:56 | Emergency (ER) | payer BC, SELFPAY ==
[2025-05-08 14:06] VITALS: BP 102/76; PULSE 74; RESP 16; TEMP 36.6; O2SAT 98
--- NOTE | 2025-05-08 15:11 | ED.GENADULT ---
HPI - General Adult General Chief complaint: Unspecified Stated complaint: Blood in Stool Time Seen by Provider: 05/08/25 14:45 Source: patient and RN notes reviewed Mode of arrival: ambulatory Limitations: no limitations History of Present Illness HPI narrative: 34-year-old female presents Express Care complaining bright red blood streaks in her stool. Patient said it started approximately 2 weeks ago she 1st noticed bright red blood after she wiped she denies any black tarry stools. Patient denies any abdominal pain, fevers body aches, chills,, chest pain, shortness of breath, dizziness, lightheadedness, loss of consciousness. Patient said she recently started prednisone last week for migraines, she says her symptoms have been intermittent and they are not every day. Patient says she usually has a bowel movement every day. Patient denies any straining or constipation problems, no history of hemorrhoids. Patient called her PCP to come here. Related Data Home Medications ?Medication ?Instructions ?Recorded ?Confirmed ?Last Taken ?Type cetirizine 10 mg tablet (Zyrtec) 10 mg PO DAILY PRN 01/05/22 04/02/25 Unknown History erenumab-aooe 70 mg/mL 70 mg subcut MONTHLY 04/20/22 04/02/25 Unknown History subcutaneous auto-injector (Aimovig Autoinjector) frovatriptan 2.5 mg tablet See Rx Instructions PO .COMPLEX 06/25/23 04/02/25 Unknown History ubrogepant 100 mg tablet (Ubrelvy) 100 mg PO ONCE PRN 06/25/23 04/02/25 Unknown History magnesium hydroxide 600 mg mg PO 08/18/24 04/02/25 Unknown History chewable tablet propranolol 80 mg capsule,24 80 mg PO DAILY 12/01/24 04/02/25 Unknown History hr,extended release (Inderal LA) omega-3 fatty acids 1,000 mg 1,000 mg PO DAILY 04/02/25 04/02/25 Unknown History capsule riboflavin (vitamin B2) 100 mg mg PO 04/02/25 04/02/25 Unknown History capsule prednisone 10 mg tablet mg 05/08/25 Unknown History Allergies Allergy/AdvReac Type Severity Reaction Status Date / Time duloxetine (From Cymbalta) Allergy Severe Unknown Verified 05/08/25 14:07 amoxicillin (From Augmentin) Allergy Intermediate Rash Verified 05/08/25 14:07 clavulanic acid (From Allergy Intermediate Rash Verified 05/08/25 14:07 Augmentin) Latex, Natural Rubber Allergy Mild tongue Verified 05/08/25 14:07 swollen levofloxacin Allergy rash and Verified 05/08/25 14:07 emesis metronidazole AdvReac Intermediate Fever Verified 05/08/25 14:07 Review of Systems Review of Systems: CONSTITUTIONAL: Denies fever, chills, or sweats. EYES: Denies visual changes, redness, or discharge. ENT: Denies rhinorrhea, congestion, sore throat, or otalgia. CARDIOVASCULAR: Denies chest pain, palpitations, dizziness, lightheadedness, or edema. RESPIRATORY: Denies cough or dyspnea. GASTROINTESTINAL: Denies abdominal pain, nausea, melena, vomiting, or diarrhea. Positive for bright red blood in stool. GENITOURINARY: Denies dysuria or hematuria. SKIN: Denies rash or itching. MUSCULOSKELETAL: Denies back pain, joint pain, or myalgia. NEUROLOGIC: Denies headache, loss of consciousness, numbness, or weakness. PSYCHIATRIC: Denies anxiety or depression. All other systems reviewed are negative, except as documented in HPI. [facility] Past Medical History Medical History Testosterone deficiency High glucose Heavy menses Anxiety Back pain GERD (gastroesophageal reflux disease) IBS (irritable bowel syndrome) Migraine Surgical History Surgical History History of exploratory laparotomy endometrial tissue removed- 09/2018 History of laparoscopic appendectomy Hx of tonsillectomy Family History Family History Mother Breast cancer Father Atrial fibrillation Sibling H/O total thyroidectomy Thyroid cancer Surgery and treatment in 2006 Social History Social History Social History: 12/01/24 very confident with medical forms Smoking status: Never smoker Second hand tobacco smoke exposure: No Alcohol intake: never Substance use: never Substance use type: does not use Lack of Transportation: No Lack of Food: Never True Current Housing: I Have Housing Concerned About Future Housing: No Difficulty Paying Gas/Electric Bills: No Difficulty Paying for Meds: No Currently Unemployed: No Education: Bachelor's Degree Difficulty w/ Childcare or Family Care: No Living arrangements: with family Occupation/Education: occupation Gender identity (if verbalized by the patient): Female Sexual Orientation (if Verbalized by the Patient): Straight or Heterosexual Comments At the time of my signature, I reviewed and agree with the nursing past medical, surgical, social, and family history. There is no relevant family history pertinent to the patient complaint. Exam Narrative: GENERAL: This is a well-nourished, well-developed adult, in no apparent distress. They are non ill-appearing, nontoxic appearing. HEAD: normocephalic, atraumatic. EYES: Sclera clear/white. Conjunctiva normal. Vision is grossly intact. Extraocular movements intact EARS: External ears normal, Hearing grossly intact. NOSE: External nose normal THROAT: Mucous membranes moist, NECK: Neck supple, CARDIOVASCULAR: Regular rate and rhythm RESPIRATORY: Respiratory rate normal, respiratory effort nonlabored, no respiratory distress GASTROINTESTINAL: Abdomen soft, non-tender, nondistended. Bowel sounds are active. No hepato-splenomegaly, or palpable masses. No guarding or rigidity. Internal hemorrhoid present on CHRISSY, grade I. No external hemorrhoids present. SKIN: warm, Dry, intact with no suspicious lesions or rash, good texture and turgor. NEURO: awake, alert, and oriented to person, place and time. There were no obvious focal neurologic abnormalities. EXTREMITIES: No joint tenderness, effusion, or edema noted. BACK: Nontender without deformity. Course Course Level of Care: Express Care Visit Vital Signs Vital signs: Vital Signs Temperature 98 F 05/08/25 14:06 Pulse Rate 74 05/08/25 14:06 Respiratory Rate 16 05/08/25 14:06 Blood Pressure 102/76 05/08/25 14:06 Pulse Oximetry 98 05/08/25 14:06 Temperature 98 F 05/08/25 14:06 Pulse Rate 74 05/08/25 14:06 Respiratory Rate 16 05/08/25 14:06 Blood Pressure 102/76 05/08/25 14:06 Pulse Oximetry 98 05/08/25 14:06 [facility] Narrative Medical decision making narrative: Patient has internal hemorrhoid on digital rectal exam, Jennifer MATHEW was present during the exam. Patient's symptoms likely could be related to an internal hemorrhoid, no black tarry stools, no gross amount of blood in stool patient is on prednisone however the symptoms started before she started prednisone, it has been intermittent in, she has reported this happened 4 times since. Offered patient ER transfer for lab work she declined. Patient is nontoxic appearing, no apparent distress, and no tachycardia, no concerns for acute blood loss. Advised close follow-up with PCP in strict ER precautions discussed with patient especially she developed black tarry stools, large amount of bright red blood in the stool, abdominal pain, fevers, vomiting blood, or any serious concerns. Differential Diagnosis Differential Diagnosis: Hemorrhoid, GI bleed, polyps Critical Care Time Critical Care Time Critical Care Time: No Discharge Plan Discharge Clinical Impression: Blood in stool, Internal hemorrhoid Patient Disposition: Home Condition: Stable Instructions: Antibiotic Form, Hemorrhoids (ED) Additional Instructions: Use [id number] preparation H as directed on the packaging for your hemorrhoids. Appears he may have a small internal hemorrhoid. May be the cause of your bleeding. Avoid any NSAIDs. Talk to your DrMadalyn About the prednisone your taking. Follow-up with your PCP in next 2-3 days. If you developed abdominal pain, fevers, black or tarry stools, gross amount of bright red blood in your stool, dizziness, lightheadedness, chest pain, shortness of breath, you lose consciousness, or any serious concerns please go to the ER immediately. Patient Language: Welsh Prescriptions: No Action prednisone 10 mg tablet magnesium hydroxide 600 mg tablet,chewable PO propranolol [Inderal LA] 80 mg capsule,extended release 24 hr 80 mg PO DAILY cetirizine [Zyrtec] 10 mg tablet 10 mg PO DAILY PRN Aimovig Autoinjector 70 mg/mL auto-injector 70 mg subcut MONTHLY frovatriptan 2.5 mg tablet See Rx Instructions PO .COMPLEX Rx Instructions: take 1 tab at onset of headache; if no relief, may repeat 1 tab after at least 2 hrs; max = 2 tabs/24 hrs PO Ubrelvy 100 mg tablet 100 mg PO ONCE PRN Rx Instructions: as a single dose; may repeat once in >=2 hours after first dose if needed omega-3 fatty acids 1,000 mg capsule 1,000 mg PO DAILY riboflavin (vitamin B2) 100 mg capsule PO omeprazole 40 mg capsule,delayed release(DR/EC) 40 mg PO DAILY Qty: 90 0RF sumatriptan succinate 100 mg tablet See Rx Instructions PO .COMPLEX Qty: 10 0RF Rx Instructions: take 1 tab at onset of headache; if no relief, may repeat 1 tab after at least 2 hrs; max = 2 tabs/24 hrs PO cyclobenzaprine 10 mg tablet 10 mg PO TID PRN (Reason: muscle spasm) Qty: 30 2RF alprazolam 0.25 mg tablet 0.25 mg PO TID PRN (Reason: anxiety) Qty: 30 2RF Follow-up/Referrals: Savannah Boland, KIMBERLEY, RIGGING UP WORKER-C [Primary Care Provider, Internal Medicine] Time of Disposition: 14:56
== END 2025-05-08 15:00 | disposition home or self-care (01) ==
PROVIDERS: PCP Clinical Nurse Specialist
DX: K64.8 Other hemorrhoids (principal); K21.9 Gastro-esophageal reflux disease without esophagitis; F41.9 Anxiety disorder, unspecified
CPT/HCPCS: 99211; G0463